=== PATIENT | female | born 1945 | race Caucasian/White ===

== ENCOUNTER 2018-01-20 11:02 | Outpatient (RCR) | payer MEDICARE, SELFPAY ==
--- NOTE | 2018-02-12 07:24 | HP.PTEVAL_ITS ---
Patient's Visit Information SAMARA GILMORE is a 72 year old F referred to Physical Therapy by Mk Velazco MD with a diagnosis of Parkinson's Disease. Date of Evaluation: 01/20/18 Physical Therapist: Gustavo Borrero - Visit Plan Frequency: 2x /Week Duration: 4 Weeks Plan: Start wth BLE strengthening, functional mobility, large amplituted movements, gait training. Add in Neurocom balance testing as well. - Subjective Subjective: Pt. is here today for her initial evaluation with diagnosis of Parkinson's disease. Pt. is a recent diagnosis and reports not stating any medications as of yet. Pt. reports havinga general weakness and frequent falls. Pt. denies pain currently. No N/T in either LE. Pt. reports living a fairly sedentary life style. Pt. does plan on moving into [facility] next month. Pt. unsure if this is assisted living or Group Home. Pt. is here today with her sister. Pt. reports increased difficulty walking in home, getting up out of chair and walking any distance due to fatigue and imbalance. Pt. is hopeful to increase BLE strength and balance to increase overall stability with all functional mobility. - Objective POSTURE: Pt. has rounded shoulders, FH, slouched posture in sitting and standing. Pt. is unable to fully correct, but is able to improve. Pt. stands with cane and wide DUY. PALPATION: Pt. has 1+ edema in BLEs. Pt. has no pain with palpation throughout BLEs. NEUROLOGICAL: Pt. has normal sensation throughout BLEs. Pt. 2+ bilateral achilles and patellar DTR. Pt. is able to rise on toes and heels, weakness noted, and requires balance aide to maintain stability. ROM: LUMBAR SPINE- generally stiff througout, min loss throughout. Pt. reports no pain with motions. Pt. has stiffness throughout thoracic spine as awell. greatest into ext. HIPS: R- flexion 118deg, abd 10deg, abd 45deg. Tight HS and hip flexors noted. L- flexion 108deg, abd 30deg, ext 10deg. Tight HS and hip flexors noted. MMT: RLE- ankle 5/5 throughout; knee- ext 4+/5 , flexion 4/5; hip- flexion 4/5, abd 4/5. ext 4/5. LLE- ankle 5/5 througout; knee- ext 4/5, flexion 4/5; hip- flexion 4/,5 abd 4/5, ext 4/5. Core strength- poor. GAIT: Pt. ambulates with SPC with HENRIQUE, but has increased posture sway and deviation from path. Pt. did not have presence of difficulty of initiaing movement and no freezing noted with gait. Pt. is able to rise of chair, but heavily uses UEs to assist. STAIRS: PT. is able to negotiate wiht step to pattern and heavy use of UEs. Fatigue rapidly. - Balance Scores Functional Gait Assessment Score: 6 % Disability: 80.0000 - Goals Goal 1:: Pt. to be I with HEP. Goal Time Frame: 4-6 Weeks Goal 2:: Pt. to have increased BLE strength by 1/2 grade of all effected musculature. Goal Time Frame: 4-6 Weeks Goal 3:: Pt. to have increased FGA to 12/30 indicating reduced risk for future falls. Goal Time Frame: 4-6 Weeks Goal 4:: Pt. to amnbulate 300+ ft. with SPC with improved safety HENRIQUE allowing for increased community ambulation. Goal Time Frame: 4-6 Weeks Goal 5:: Pt. to have Neurocom balance assessment. Goal Time Frame: 4-6 Weeks - Rehabilitation Potential Physical Therapy Diagnosis: Pt. has signs and symptoms consistent with generalized weakness, gait difficulty and imbalance with diagnosis of Parkinson' s disease. Pt. would benefit from PT to address above issues progressing larger movements, stability in stance, and safety with functional mobility. I would like patient to have a Neurocom balance assessment as well. Rehabilitation Potential: Fair - Anticipated Interventions Patient/Client Instruction: Educate patient on: Condition, Plan of Care, Risk Factors, Benefits of Fitness Program For the Purpose of:: To improve decision making, To facilitate caregiver knowledge, To improve self management, To prevent re-injury, To improve ability to perform tasks related to life management, To improve tolerance to ADL's Therapeutic Exercise to Include: Strength training, Power training, Endurance training, Balance training, Coordination, Agility training, Postural training, Flexibilty training, via Neurocom Balance Mas, Passive ROM, Active ROM For the Purpose of:: To decrease pain, To increase ROM, To improve nutrient delivery to tissue, To increase oxygenation perfusion, To improve muscle performance and motor function, To improve ability to perform ADL's, To improve gait and locomotor functions, To improve health of tissue, To decrease soft tissue restriction, To increase flexibility/ROM, To improve endurance, To improve balance, To improve safety with gait Thank you for the opportunity to evaluate your patient. For Medicare and Medicare HMO plans, please review the plan of care and approve it. It will need to be FAXED BACK to us at [phone] for Medicare purposes. Please let me know if there are questions or concerns regarding this plan of care. Physician Signature: Date:
--- NOTE | 2018-06-10 11:52 | HP.PT.NRP ---
HP - Discharge Summary (1) - Patient Information Julisa Conroy was seen in my office for initial evaluation on 01/20/18. The following Plan of Care was established for this patient: Initial Frequency: 2x /Week Initial Duration: 4 Weeks - Anticipated Interventions Patient/Client Instruction: Educate patient on: Condition, Plan of Care, Risk Factors, Benefits of Fitness Program For the Purpose of:: To improve decision making, To facilitate caregiver knowledge, To improve self management, To prevent re-injury, To improve ability to perform tasks related to life management, To improve tolerance to ADL's Therapeutic Exercise to Include: Strength training, Power training, Endurance training, Balance training, Coordination, Agility training, Postural training, Flexibilty training, via Neurocom Balance Mas, Passive ROM, Active ROM For the Purpose of:: To decrease pain, To increase ROM, To improve nutrient delivery to tissue, To increase oxygenation perfusion, To improve muscle performance and motor function, To improve ability to perform ADL's, To improve gait and locomotor functions, To improve health of tissue, To decrease soft tissue restriction, To increase flexibility/ROM, To improve endurance, To improve balance, To improve safety with gait This patient was last seen in our office 01/20/18. Pertinent comments regarding their Physical therapy will appear below: Pt. was seen for her initial evaluation with diagnosis of Parkinson's disease. Pt. was given some exercises to work on, but did not attend any future visits. Pt. has not been seen in ~4 months and will be DC from PT at this point in time. At this point I will be discontinuing this patient from physical therapy. I would be happy to see this patient again in the future if found appropriate by the physician. Thank you! Gustavo Borrero
== END 2018-01-20 19:00 | disposition home or self-care (01) ==
LOC: PT 11:02
PROVIDERS: Family Provider Family Medicine; PCP Family Medicine; Visit Provider Psychiatry & Neurology Neurology
DX: G20 Parkinson's disease (principal)
CPT/HCPCS: 97162

== ENCOUNTER → 2018-03-02 05:00 | Outpatient (REF) | payer MEDICARE, SELFPAY ==
[2018-03-02 08:08] LABS: Hematocrit 38.7 % (37-47); Mean Corp Hgb Conc 33.6 g/gl (32-36); Mean Corpuscular Hgb 29.8 pg (27.0-32.0); Mean Corpuscular Volume 88.8 fL (81-99); Mean Platelet Vol. 9.9 fl (6.2-12.0); Platelet Count 235 K/mm3 (150-450); RBC Distribution Width CV 12.6 % (11.6-14.6); RBC Distribution Width SD 40.3 fl (35.1-43.9); Red Blood Count 4.36 M/mm3 (4.2-5.4); White Blood Count 7.7 K/mm3 (4.4-11.0)
[2018-03-02 08:25] LABS: Scan Indicated on CBC? Y/N NO
[2018-03-02 08:45] LABS: Hemoglobin A1c 10.4 % (4.2-6.3)
[2018-03-02 08:47] LABS: Anion Gap 8 (5-15); BUN 20 mg/dL (7-18); BUN/Creat Ratio 35.1 RATIO (10-20); Calcium,Total 9.6 mg/dL (8.5-10.1); Chloride 100 mmol/L (98-107); Cholesterol 154 mg/dL (200); Creatinine, Serum 0.57 mg/dL (0.55-1.02); EST Glomerular Filtration Rate 110 mL/min (>60); Est Glom Filt Rate - Afr Amer 134 mL/min (>60); Glucose 233 mg/dL (74-106); High Density Lipoprotein 34 mg/dL; Potassium 3.3 mmol/L (3.5-5.1); Sodium Level 138 mmol/L (136-145); Thyroid Stim Hormone (TSH) 0.26 uIU/mL (0.358-3.74); Triglycerides 143 mg/dL; Very Low Density Lipoprotein 29 mg/dL (5-40)
== END ==
LOC: OLS.WCC 05:00
PROVIDERS: Visit Provider Family Medicine
DX: E11.9 Type 2 diabetes mellitus without complications (principal); R53.83 Other fatigue; I10 Essential (primary) hypertension; E78.5 Hyperlipidemia, unspecified; E03.9 Hypothyroidism, unspecified; Z79.899 Other long term (current) drug therapy
CPT/HCPCS: 36415; 80048; 80061; 83036; 84443; 85027

== ENCOUNTER → 2018-09-27 04:00 | Outpatient (REF) | payer MEDICARE, SELFPAY ==
[2018-09-27 09:04] LABS: Hematocrit 40.4 % (37-47); Hemoglobin 13.5 g/dl (12.0-15.0); Mean Corp Hgb Conc 33.4 g/gl (32-36); Mean Corpuscular Hgb 30.1 pg (27.0-32.0); Mean Platelet Vol. 9.8 fl (6.2-12.0); Platelet Count 236 K/mm3 (150-450); RBC Distribution Width SD 41.9 fl (35.1-43.9); Red Blood Count 4.49 M/mm3 (4.2-5.4); White Blood Count 7.3 K/mm3 (4.4-11.0)
[2018-09-27 09:08] LABS: Scan Indicated on CBC? Y/N NO
[2018-09-27 09:29] LABS: Anion Gap 8 (5-15); BUN 16 mg/dL (7-18); BUN/Creat Ratio 27.7 RATIO (10-20); Calcium,Total 8.5 mg/dL (8.5-10.1); Chloride 103 mmol/L (98-107); Cholesterol 147 mg/dL (200); Creatinine, Serum 0.58 mg/dL (0.55-1.02); EST Glomerular Filtration Rate 109 mL/min (>60); Est Glom Filt Rate - Afr Amer 132 mL/min (>60); Glucose 205 mg/dL (74-106); High Density Lipoprotein 33 mg/dL; Potassium 3.4 mmol/L (3.5-5.1); Sodium Level 140 mmol/L (136-145); Thyroid Stim Hormone (TSH) 0.74 uIU/mL (0.358-3.74); Triglycerides 201 mg/dL; Very Low Density Lipoprotein 40 mg/dL (5-40)
[2018-09-27 09:46] LABS: Hemoglobin A1c 9.6 % (4.2-6.3)
== END ==
LOC: OLS.WCC 04:00
PROVIDERS: Visit Provider Family Medicine
DX: I10 Essential (primary) hypertension (principal); E78.5 Hyperlipidemia, unspecified; E03.9 Hypothyroidism, unspecified; Z79.899 Other long term (current) drug therapy; E11.9 Type 2 diabetes mellitus without complications
CPT/HCPCS: 36415; 80048; 80061; 83036; 84443; 85027

== ENCOUNTER → 2018-11-16 15:33 | Outpatient (CLI) | payer MEDICARE, SELFPAY ==
[2018-11-16 17:32] LABS: Absolute Lymphocyte Count 1.98 X10^3/ul (0.83-4.51); Absolute Neutrophil Count 5.1 X10^3/uL (2.0-7.7); Basophil# 0.05 X10^3/uL; Basophil% 0.6 % (0-1); Eosinophil# 0.18 X10^3/uL; Eosinophils% 2.3 % (0-5); Hematocrit 43.5 % (37-47); Lymphocyte # 1.98 X10^3/ul (4.0); Lymphocyte % 24.9 % (19-41); Mean Corp Hgb Conc 32.2 g/gl (32-36); Mean Corpuscular Hgb 29.2 pg (27.0-32.0); Mean Corpuscular Volume 90.8 fL (81-99); Mean Platelet Vol. 10.2 fl (6.2-12.0); Monocyte# 0.65 X10^3/uL; Monocyte% 8.2 % (0-10); Neutrophil # 5.05 X10^3/uL (2.7-7.7); Neutrophil % 63.6 % (47-70); Platelet Count 224 K/mm3 (150-450); RBC Distribution Width CV 12.5 % (11.6-14.6); RBC Distribution Width SD 40.9 fl (35.1-43.9); Red Blood Count 4.79 M/mm3 (4.2-5.4); White Blood Count 7.9 K/mm3 (4.4-11.0)
[2018-11-16 17:57] LABS: POSITIVE COUNT NO; POSITIVE DIFFERENTIAL NO; POSITIVE MORPHOLOGY NO
[2018-11-16 18:17] LABS: ALB/GLOB Ratio 0.9 RATIO (0.9-2.4); AST(SGOT) 22 U/L (15-37); Alanine Aminotransfer ALT/SGPT 13 U/L (13-56); Albumin, Serum 3.3 g/dL (3.2-5.0); Alkaline Phosphatase 88 U/L (45-117); Anion Gap 8 (5-15); BUN 23 mg/dL (7-18); BUN/Creat Ratio 27.1 RATIO (10-20); Calcium,Total 9.4 mg/dL (8.5-10.1); Chloride 104 mmol/L (98-107); Cholesterol 150 mg/dL (200); Creatinine, Serum 0.85 mg/dL (0.55-1.02); EST Glomerular Filtration Rate 70 mL/min (>60); Est Glom Filt Rate - Afr Amer 84 mL/min (>60); Globulin 3.8 g/dL (2.2-4.2); Glucose 219 mg/dL (74-106); High Density Lipoprotein 39 mg/dL; Potassium 4.1 mmol/L (3.5-5.1); Protein, Total 7.1 g/dL (6.4-8.2); Sodium Level 139 mmol/L (136-145); Thyroid Stim Hormone (TSH) 0.75 uIU/mL (0.358-3.74); Triglycerides 111 mg/dL; Very Low Density Lipoprotein 22 mg/dL (5-40)
[2018-11-18 13:12] LABS: Hep C Antibodies <0.1 s/co ratio (0.0-0.9)
== END ==
PROVIDERS: Visit Provider Family Medicine Geriatric Medicine
DX: Z00.00 Encounter for general adult medical examination without abnormal findings (principal); N39.0 Urinary tract infection, site not specified; E78.5 Hyperlipidemia, unspecified; E55.9 Vitamin D deficiency, unspecified; Z13.89 Encounter for screening for other disorder
CPT/HCPCS: 36415; 80053; 80061; 82306; 84443; 85025; 86803; 87086; 87088

== ENCOUNTER → 2018-11-25 13:14 | Outpatient (CLI) | payer MEDICARE, SELFPAY ==
--- NOTE | 2018-11-25 13:21 | BD_ITS ---
STUDY: DUAL ENERGY X-RAY ABSORPTIOMETRY / DXA REASON FOR EXAM: Female, 72 years old. The patient is postmenopausal. Loss of height. TECHNIQUE: Bone Mineral Density (BMD) measurements of lumbar spine and bilateral hips were obtained. COMPARISON: None. FINDINGS: Lumbar Spine (L1-L4): g/cm2 (1.288) / T-score (0.9) / Z-score (2.6) Findings are suggestive of normal bone density with a low fracture risk. Left Femur Total: g/cm2 (0.992) / T-score (-0.1) / Z-score (1.5) Left Femoral Neck: g/cm2 (0.810) / T-score (-1.6) / Z-score (0.2) Right Femur Total: g/cm2 (0.946) / T-score (-0.5) / Z-score (1.2) Right Femoral Neck: g/cm2 (0.797) / T-score (-1.7) / Z-score (0.1) BD/Dexa Bone Density Study IMPRESSION: The patient is considered osteopenic as outlined below according to World Jerome Organization (WHO) criteria with a moderate fracture risk. Reference Information: The T-score is the number of standard deviations above or below the standard which is normal for young adults at their peak bone mineral density. The World Health Organization (WHO) interprets the T-scores as follows: Above -1 Normal bone density Between -1 and -2.5 Osteopenia Equal to / or below -2.5 Osteoporosis As a practical clinical guideline, osteopenia may be graded as follows: Mild -1 through -1.5 Moderate -1.6 through -2.0 Severe -2.1 through -2.4 The Z-score is the number of standard deviations above or below age-matched controls. A Z-score of less than -1.5 would be considered abnormal. References: 1. NIH Osteoporosis and Related Bone Diseases http://www.osteo.org 2. International Society for Clinical Densitometry http://www.iscd.org 3. National Osteoporosis Foundation http://www.nof.org Electronically Signed: Daniel Michel, at 13:08 EDT , Service support ,
== END ==
PROVIDERS: PCP Family Medicine Geriatric Medicine; Referring Provider Family Medicine Geriatric Medicine; Visit Provider Family Medicine Geriatric Medicine
DX: Z78.0 Asymptomatic menopausal state (principal); M85.80 Other specified disorders of bone density and structure, unspecified site
CPT/HCPCS: 77080

== ENCOUNTER → 2019-02-16 11:16 | Outpatient (CLI) | payer OTHER, SELFPAY ==
[2019-02-16 12:54] LABS: Absolute Lymphocyte Count 1.64 X10^3/ul (0.83-4.51); Absolute Neutrophil Count 6.2 X10^3/uL (2.0-7.7); Basophil# 0.04 X10^3/uL; Basophil% 0.4 % (0-1); Eosinophil# 0.24 X10^3/uL; Eosinophils% 2.7 % (0-5); Lymphocyte # 1.64 X10^3/ul (4.0); Lymphocyte % 18.4 % (19-41); Mean Corp Hgb Conc 32.5 g/gl (32-36); Mean Corpuscular Hgb 29.1 pg (27.0-32.0); Mean Corpuscular Volume 89.5 fL (81-99); Mean Platelet Vol. 9.5 fl (6.2-12.0); Monocyte# 0.76 X10^3/uL; Monocyte% 8.5 % (0-10); Neutrophil % 69.7 % (47-70); Platelet Count 247 K/mm3 (150-450); RBC Distribution Width CV 13.1 % (11.6-14.6); RBC Distribution Width SD 42.6 fl (35.1-43.9); Red Blood Count 4.47 M/mm3 (4.2-5.4); White Blood Count 8.9 K/mm3 (4.4-11.0)
[2019-02-16 12:55] LABS: POSITIVE COUNT NO; POSITIVE DIFFERENTIAL NO; POSITIVE MORPHOLOGY NO
[2019-02-16 13:05] LABS: Vitamin D,25 Hydroxy 30.4 ng/mL (29.95-100.01)
[2019-02-16 13:11] LABS: ALB/GLOB Ratio 0.9 RATIO (0.9-2.4); AST(SGOT) 10 U/L (15-37); Alanine Aminotransfer ALT/SGPT 21 U/L (13-56); Albumin, Serum 3.4 g/dL (3.2-5.0); Alkaline Phosphatase 87 U/L (45-117); Anion Gap 8 (5-15); BUN 21 mg/dL (7-18); BUN/Creat Ratio 28.2 RATIO (10-20); Calcium,Total 9.5 mg/dL (8.5-10.1); Chloride 104 mmol/L (98-107); Cholesterol 113 mg/dL (200); Creatinine, Serum 0.74 mg/dL (0.55-1.02); EST Glomerular Filtration Rate 81 mL/min (>60); Est Glom Filt Rate - Afr Amer 98 mL/min (>60); Globulin 3.7 g/dL (2.2-4.2); Glucose 118 mg/dL (74-106); High Density Lipoprotein 44 mg/dL; Protein, Total 7.1 g/dL (6.4-8.2); Sodium Level 139 mmol/L (136-145); Triglycerides 107 mg/dL; Very Low Density Lipoprotein 21 mg/dL (5-40)
== END ==
PROVIDERS: PCP Family Medicine Geriatric Medicine; Visit Provider Family Medicine Geriatric Medicine
DX: E11.65 Type 2 diabetes mellitus with hyperglycemia (principal); I10 Essential (primary) hypertension; E78.5 Hyperlipidemia, unspecified; E55.9 Vitamin D deficiency, unspecified
CPT/HCPCS: 36415; 80053; 80061; 82306; 84443; 85025

== ENCOUNTER → 2019-03-07 14:35 | Outpatient (CLI) | payer OTHER, SELFPAY ==
--- NOTE | 2019-03-07 | IMM_PTH ---
PATIENT: SAMARA GILMORE LOC: [facility] U#:[id number] AGE/SX: 79/F ROOM: RE03/07/[address]: Dr. Darren Kaur MD : 1945 BED: DIS: SPEC #: [id number] RECD: 03/08/19 16:19 STATUS: NICOLÁS REIngrid #: [id number] GONZALEZ: 03/07/19 00:[address]: Darren Kaur DEPT: IMMUNOHISTOCHEMISTRY RECD BY: Sylvia Smith ENTERED: 03/08/19 16:20 SP TYPE: IMMUNO OTHR DR: Dr. Evens Munoz MD Tissues: Skin of face, NOS Procedures: CK5-6 (initial) MART1 (add) P40 (add) S-100 (add) PHYSICIAN & INSTITUTION [place] [address] SPECIMEN INFORMATION: Tissue Source: Lesion right upper cheek Clinical Info: Lesion right upper cheek, melanoma history Specimen Number: [id number] CPT code: 77685, 94667 x3 METHODOLOGY: Deparaffinized sections of prefer/formalin-fixed tissue or PAP/DQ stained slides are incubated with monoclonal/polyclonal antibodies/oligonucleotide probes. Localization is made via biotin free immunoperoxidase method. Appropriate controls are performed and reacted as expected. Results on target cell population are indicated in the following table: RESULTS: ANTIBODY / CLONE RESULT S-100 (4C4.9) negative MART-1 (A-103) negative CK5-6 (D5 & 1684) positive P40 (BC28) positive These tests were developed and their performance characteristics determined by [facility]. They may not have been cleared or approved by the U.S. Food and Drug Administration. The FDA has determined that such clearance or approval is not necessary. INTERPRETATION: Lesion right upper cheek, biopsy: Basal cell carcinoma. AMOS:karlene 03/09/19
--- NOTE | 2019-03-07 11:55 | LES_PTH ---
PATIENT: SAMARA GILMORE LOC: [facility] U#:[id number] AGE/SX: 79/F ROOM: RE03/07/[address]: Dr. Darren Kaur MD : 1945 BED: DIS: SPEC #: [id number] RECD: 03/07/19 13:34 STATUS: NICOLÁS KATHY #: [id number] GONZALEZ: 03/07/19 11:[address]: Darren Kaur DEPT: SURGICAL PATHOLOGY RECD BY: Carli Pavon ENTERED: 03/07/19 15:02 SP TYPE: Lesion OTHR DR: Dr. Evens Muonz MD Tissues: Skin of face, NOS Procedures: Surgery Specimen Level IV HEADER OPERATION: Lesion right upper cheek PRE-OP DIAGNOSIS: History of melanoma at site 20 years ago, raised lesion TISSUE SUBMITTED: Lesion right upper cheek MICROSCOPIC DIAGNOSIS Lesion right upper cheek, punch biopsy: Basal cell carcinoma (0.3 cm in greatest dimension), present at the peripheral resection margin of the specimen. See comment. AMOS:karlene 03/08/19 COMMENT Immunohistochemistry ([id number]) supports the above diagnosis. Case has been reviewed in consultation with Dr. Camara who concurs with the above diagnosis. IDC:AM MICROSCOPIC DESCRIPTION Slides are reviewed. GROSS DESCRIPTION Received is one container labeled with the patient's name and not further designated. The specimen consists of a punch biopsy of samayoa-white skin measuring 0.4 cm in diameter and 0.3 cm in length. The specimen is totally submitted in one cassette. / AMOS:karlene 03/07/19 TC:0 CPT: 84202
== END ==
PROVIDERS: Family Provider Family Medicine Geriatric Medicine; PCP Family Medicine Geriatric Medicine; Referring Provider Otolaryngology; Visit Provider Otolaryngology
DX: L98.9 Disorder of the skin and subcutaneous tissue, unspecified (principal); Z85.820 Personal history of malignant melanoma of skin
CPT/HCPCS: 88305; 88341; 88342

== ENCOUNTER 2019-04-01 06:08 | Day surgery (SDC) | payer OTHER, SELFPAY ==
[2019-04-01] VITALS (9 sets, daily range): BP systolic 97–169; BP diastolic 54–68; PULSE 58–77; RESP 16–18; TEMP 35.9–36.3; O2SAT 92–96; BMI 41.1
--- NOTE | 2019-04-01 | LES_PTH ---
PATIENT: SAMARA GILMORE [place] [id number] AGE/SX: 73/F ROOM: RE04/01/[address]: Dr. Darren Kaur MD : 1945 BED: DIS: 04/01/2019 SPEC #: [id number] RECD: 04/01/19 08:40 STATUS: NICOLÁS REQ #: [id number] GONZALEZ: 04/01/19 00:[address]: Darren Kaur DEPT: SURGICAL PATHOLOGY RECD BY: Sylvia Smith ENTERED: 04/01/19 09:30 SP TYPE: Lesion OTHR DR: Dr. Evens Munoz MD Tissues: A - Skin of face, NOS B - Skin of face, NOS Procedures: Frozen Section (charge) Frozen Section Add[facility]l ([facility]) Surgery Specimen Level IV HEADER OPERATION: Excision malignant lesion including margins, face, frozen section PRE-OP DIAGNOSIS: Basal cell carcinoma of right face TISSUE SUBMITTED: A - Basal cell carcinoma right cheek, single suture - superior, double suture - medial sent for frozen section, B - Medial margin right cheek, stain at superior sent for frozen section FROZEN SECTION DIAGNOSIS A. Basal cell carcinoma right cheek, excisional biopsy: Basal cell carcinoma. The tumor is close to the medial margin. Other margins are free of tumor. B. Medial margin right cheek, biopsy: Negative for carcinoma. AMOS:karlene 04/01/19 MICROSCOPIC DIAGNOSIS A. Basal cell carcinoma right cheek, excisional biopsy: Basal cell carcinoma (1.1 cm in greatest width). The tumor is close to the medial margin of the specimen. Other margins are free of tumor. Solar elastosis. Focal fibrosis consistent with previous biopsy site. B. Medial margin right cheek, biopsy: Negative for carcinoma. AMOS:karlene 04/04/19 COMMENT Please make reference to previous specimen ([id number]) lesion right cheek, punch biopsy with diagnosis of basal cell carcinoma. MICROSCOPIC DESCRIPTION Slides are reviewed. GROSS DESCRIPTION A - Received fresh for frozen section diagnosis labeled with the patient's name is a specimen designated basal cell carcinoma, right cheek. The specimen consists of an ovoid to arvind-shaped piece of samayoa-white skin measuring 2.5 x 2 x 0.1 cm. The specimen is oriented as follows: single suture - superior, double suture - medial. The specimen is inked as follows: superior - black, inferior - blue, medial - green, lateral - yellow. The entire specimen is submitted for frozen section diagnosis in three cassettes as follows: 1 - medial and lateral margin enface, 2 & 3 - rest of the specimen. / AMOS:karlene 04/01/19 B - Received fresh for frozen section diagnosis labeled with the patient's name is a specimen designated medial margin, right cheek. The specimen consists of a strip of samayoa-white skin measuring 2 x 0.2 x 0.1 cm. The entire specimen is submitted for frozen section diagnosis in one cassette. / AMOS:karlene 04/01/19 TC:0 CPT: 44650 x2, 10133 x2, 99872 x2
[2019-04-01 06:46] LABS: Bedside Glucose 124 mg/dL (70-110)
[2019-04-01] MEDS: Erythromycin Base 1 OPTH.TUBE 1 APPLIC (10:19)
--- NOTE | 2019-04-01 10:21 | PCM.OPRPT ---
Problem List (1) Basal cell carcinoma of right cheek Status: Chronic Report of Operation Date of Procedure: 04/01/19 Pre-Operative Diagnosis: Basal cell carcinoma right cheek Surgery/Procedure Performed:: Excison of BCCA of right cheek 2x3 cm with advancement rotation flap reconstruction less than 10 cm2 Description of Surgical Findings:: Julisa is a 73-year-old female with a bleeding lesion over the right cheek. This was biopsied in the office which revealed basal cell carcinoma. She had a previous excision at this site and examination showed a broad spreading lesion approximately 2 x 2 cm in size suspicious for tumor involvement. She was counseled regarding wide resection with local flap reconstruction and was agreeable to proceed. The risks, alternatives, potential complications, and benefits were discussed at length and any questions answered to the patient and/or caregiver's satisfaction. Witnessed informed consent was obtained in the office, and the patient and/or caregiver was agreeable to proceed. Procedure went as follows: The patient was identified in the preoperative holding and the right cheek site marked as the operative site. She was then brought to the operating room and placed under general anesthesia and intubated. When appropriate and she is obtained, the face was then prepped and draped in standard sterile fashion. The planned incision sites were then marked with a marking pen and injected with 1% lidocaine with 100,000 epinephrine for a total of 5 cc. After allowing for vasoconstriction, the lesion was then sharply excised with a 15 blade scalpel through the skin down to the subcutaneous tissues and an area 2 x 3 cm in size. This was then sharply dissected free from the buccal fat pad with an iris scissor and sent as pathologic specimen. The margins were marked and frozen section revealed the medial margin to remain closely involved with tumor and an additional 2 mm wide segment by 2 cm in length was sent for additional evaluation. The second margin was clear of involvement. Attention was then turned to reconstruction of the defect. A large rotational flap was then designed pedicled inferiorly. This was additionally injected with 1% lidocaine with 100,000 epinephrine for a total of 3 cc. Using a 15 blade scalpel the descending limbs of the flap were then incised using an iris scissor this was then widely undermined to allow it to be rotated superiorly into the cheek defect. Hemostasis was achieved with bipolar cautery. The flap was then rotated superiorly into the defect and secured deeply with interrupted 3-0 Vicryl sutures. The skin edge was then closed with interrupted 5-0 Monocryl sutures. Erythromycin ophthalmic ointment was then applied to the wound edge. The patient was then returned to anesthesia where she was revived and extubated without complication having tolerated the procedure well. Type of Anesthesia:: General Anesthesiologist: Darren Gibbs Special Medications: none Specimen's removed: BCCA right cheek Drains: none Estimated Blood Loss (mL): 10 mL Fluids Replaced: 1200 mL Grafts/Implants Used: none - Complications none - Admit VTE Documentation VTE Present on Admission: No VTE Mechan Device Prophylaxis: SCD's VTE Pharm Prophylaxis ordered?: No
--- NOTE | 2019-04-01 10:30 | DCINST_ITS ---
- Discharge Diagnoses Current Active Problems: Current Active and Chronic Problems Basal cell carcinoma of right cheek (Chronic) You will use the following diet at home:: Regular Discharge Activity: Return to Normal Activity Call your doctor if your incision/area has: Continuous Slow Oozing, Increased Redness, Foul Smelling Discharge Call your doctor if you observe: Fever of 101 or Higher, Uncontrolled pain Allergies/Adverse Reactions: Allergies Penicillins Allergy (Verified 03/25/19 10:06) Rash hydrocodone Adverse Reaction (Verified 03/25/19 10:06) hallucinations Medications to take at Discharge Amlodipine [Norvasc] 5 mg PO DAILY 03/28/19 Aspirin [Aspir 81] 81 mg PO DAILY 03/28/19 Atorvastatin Calcium [Lipitor] 40 mg PO QHS 03/28/19 Buspirone HCl 10 mg PO BID 03/28/19 Calcium Carbonate [Calcium] 600 mg PO BID 03/28/19 Carbidopa/Levodopa 25/100 [Sinemet] 1 tab PO TIDAC 03/28/19 Cholecalciferol (VIT D3) [Vitamin D] 1,000 unit PO DAILY 03/28/19 Insulin Glargine,Hum.rec.anlog [Lantus] 40 unit SQ QHS 03/28/19 Levothyroxine [Synthroid] 125 mcg PO DAILY 03/28/19 Loratadine [Claritin] 10 mg PO DAILY 03/28/19 Losartan/Hydrochlorothiazide [Losartan-Hctz 100-25 mg Tab] 1 ea PO DAILY 03/28/19 Metformin HCl 1,000 mg PO BID 03/28/19 Pioglitazone [Actos] 30 mg PO DAILY 03/28/19 Potassium Chloride 10 meq PO TID 03/28/19 Venlafaxine HCl [Effexor Xr] 150 mg PO DAILY 03/28/19 Primary Care Physician: Evens Munoz Chi, MD [Primary Care Provider] - Test Results: Test results from this visit will be discussed in further detail at your follow- up appointment, if applicable. Please Follow Up With: Darren Kaur MD When: 2 weeks
[2019-04-01 10:45] LABS: Bedside Glucose 176 mg/dL (70-110)
== END 2019-04-01 12:57 | disposition home or self-care (01) ==
LOC: SDC 06:08 → AC 06:10
PROVIDERS: Family Provider Family Medicine Geriatric Medicine; PCP Family Medicine Geriatric Medicine; Referring Provider Otolaryngology; Visit Provider Otolaryngology
PROC: (CPT 14040; principal; 2019-04-01 07:55)
DX: C44.319 Basal cell carcinoma of skin of other parts of face (principal); E11.9 Type 2 diabetes mellitus without complications; I10 Essential (primary) hypertension; E78.5 Hyperlipidemia, unspecified; M19.90 Unspecified osteoarthritis, unspecified site; F32.9 Major depressive disorder, single episode, unspecified; Z78.0 Asymptomatic menopausal state; Z79.82 Long term (current) use of aspirin; Z79.4 Long term (current) use of insulin; Z79.899 Other long term (current) drug therapy
CPT/HCPCS: 14040; 82962; 88305; 88331; 88332; J7120; J2405

== ENCOUNTER → 2019-05-18 10:32 | Outpatient (CLI) | payer OTHER, MEDICARE, MEDICAID, SELFPAY ==
[2019-04-01 06:29] VITALS: BMI 41.1
[2019-05-18 12:45] LABS: Absolute Lymphocyte Count 1.78 X10^3/uL (0.83-4.51); Absolute Neutrophil Count 5.6 X10^3/uL (2.0-7.7); Basophil# 0.06 X10^3/uL; Basophil% 0.7 % (0-1); Eosinophil# 0.25 X10^3/uL; Eosinophils% 2.9 % (0-5); Hemoglobin 12.5 g/dL (12.0-15.0); Lymphocyte # 1.78 X10^3/ul (4.0); Lymphocyte % 20.9 % (19-41); Mean Corp Hgb Conc 32.1 g/dL (32-36); Mean Corpuscular Hgb 28.7 pg (27.0-32.0); Mean Corpuscular Volume 89.7 fL (81-99); Monocyte# 0.83 X10^3/uL; Monocyte% 9.7 % (0-10); NRBC Flagged by Analyzer 0 % (0-5); Neutrophil # 5.57 X10^3/uL (2.7-7.7); Neutrophil % 65.3 % (47-70); Platelet Count 251 K/mm3 (150-450); RBC Distribution Width CV 12.5 % (11.6-14.6); RBC Distribution Width SD 41.2 fl (35.1-43.9); Red Blood Count 4.35 M/mm3 (4.2-5.4); White Blood Count 8.5 K/mm3 (4.4-11.0)
[2019-05-18 13:02] LABS: Vitamin D,25 Hydroxy 28.3 ng/mL (29.95-100.01)
[2019-05-18 13:24] LABS: ALB/GLOB Ratio 0.9 RATIO (0.9-2.4); AST(SGOT) 15 U/L (15-37); Alanine Aminotransfer ALT/SGPT 24 U/L (13-56); Albumin, Serum 3.3 g/dL (3.2-5.0); Alkaline Phosphatase 88 U/L (45-117); Anion Gap 9 (5-15); BUN 27 mg/dL (7-18); BUN/Creat Ratio 35.9 RATIO (10-20); Calcium,Total 9.5 mg/dL (8.5-10.1); Chloride 101 mmol/L (98-107); Creatinine, Serum 0.75 mg/dL (0.55-1.02); EST Glomerular Filtration Rate 80 mL/min (>60); Est Glom Filt Rate - Afr Amer 97 mL/min (>60); Globulin 3.7 g/dL (2.2-4.2); Glucose 129 mg/dL (74-106); Potassium 3.8 mmol/L (3.5-5.1); Sodium Level 139 mmol/L (136-145); Thyroid Stim Hormone (TSH) 0.73 uIU/mL (0.358-3.74)
== END ==
PROVIDERS: Family Provider Family Medicine Geriatric Medicine; PCP Family Medicine Geriatric Medicine; Visit Provider Family Medicine Geriatric Medicine
DX: I10 Essential (primary) hypertension (principal); E78.5 Hyperlipidemia, unspecified; E55.9 Vitamin D deficiency, unspecified
CPT/HCPCS: 36415; 80053; 82306; 84443; 85025

== ENCOUNTER → 2019-08-16 11:31 | Outpatient (CLI) | payer OTHER, MEDICARE, MEDICAID, SELFPAY ==
[2019-04-01 06:29] VITALS: BMI 41.1
[2019-08-16 12:31] LABS: Absolute Lymphocyte Count 1.44 X10^3/uL (0.83-4.51); Absolute Neutrophil Count 5.3 X10^3/uL (2.0-7.7); Basophil# 0.05 X10^3/uL; Basophil% 0.6 % (0-1); Eosinophil# 0.31 X10^3/uL; Eosinophils% 3.9 % (0-5); Hematocrit 39.2 % (37-47); Hemoglobin 12.7 g/dL (12.0-15.0); Lymphocyte # 1.44 X10^3/ul (4.0); Lymphocyte % 18.3 % (19-41); Mean Corp Hgb Conc 32.4 g/dL (32-36); Mean Corpuscular Hgb 28.6 pg (27.0-32.0); Mean Corpuscular Volume 88.3 fL (81-99); Mean Platelet Vol. 10.2 fl (6.2-12.0); Monocyte# 0.72 X10^3/uL; Monocyte% 9.1 % (0-10); NRBC Flagged by Analyzer 0 % (0-5); Neutrophil # 5.31 X10^3/uL (2.7-7.7); Neutrophil % 67.6 % (47-70); Platelet Count 277 K/mm3 (150-450); RBC Distribution Width SD 42.1 fl (35.1-43.9); Red Blood Count 4.44 M/mm3 (4.2-5.4); White Blood Count 7.9 K/mm3 (4.4-11.0)
[2019-08-16 12:45] LABS: Vitamin D,25 Hydroxy 27.7 ng/mL (29.95-100.01)
[2019-08-16 13:22] LABS: ALB/GLOB Ratio 0.9 RATIO (0.9-2.4); AST(SGOT) 15 U/L (15-37); Alanine Aminotransfer ALT/SGPT 18 U/L (13-56); Albumin, Serum 3.4 g/dL (3.2-5.0); Alkaline Phosphatase 84 U/L (45-117); Anion Gap 7 (5-15); BUN 21 mg/dL (7-18); BUN/Creat Ratio 24.1 RATIO (10-20); Calcium,Total 9.6 mg/dL (8.5-10.1); Chloride 103 mmol/L (98-107); Creatinine, Serum 0.87 mg/dL (0.55-1.02); EST Glomerular Filtration Rate 67 mL/min (>60); Est Glom Filt Rate - Afr Amer 81 mL/min (>60); Globulin 3.6 g/dL (2.2-4.2); Glucose 198 mg/dL (74-106); Magnesium 1.8 mg/dL (1.6-2.6); Potassium 3.9 mmol/L (3.5-5.1); Sodium Level 138 mmol/L (136-145); Thyroid Stim Hormone (TSH) 1.81 uIU/mL (0.358-3.74)
== END ==
PROVIDERS: Family Provider Family Medicine Geriatric Medicine; PCP Family Medicine Geriatric Medicine; Visit Provider Family Medicine Geriatric Medicine
DX: E11.65 Type 2 diabetes mellitus with hyperglycemia (principal); E55.9 Vitamin D deficiency, unspecified; I10 Essential (primary) hypertension
CPT/HCPCS: 36415; 80053; 82306; 83735; 84443; 85025

== ENCOUNTER → 2019-10-03 12:10 | Outpatient (CLI) | payer MEDICARE, MEDICAID, SELFPAY ==
[2019-04-01 06:29] VITALS: BMI 41.1
== END ==
PROVIDERS: PCP Family Medicine Geriatric Medicine; Referring Provider Family Medicine Geriatric Medicine; Visit Provider Family Medicine Geriatric Medicine
DX: R68.83 Chills (without fever) (principal)
CPT/HCPCS: 87633

== ENCOUNTER → 2019-11-02 17:01 | Outpatient (CLI) | payer MEDICARE, MEDICAID, SELFPAY ==
[2019-04-01 06:29] VITALS: BMI 41.1
--- NOTE | 2019-11-02 17:25 | RAD_ITS ---
STUDY: X-RAY - ABDOMEN/PELVIS REASON FOR EXAM: Female, 73 years old. EXCESSIVE GAS X 6 MONTHS WITH PAIN TECHNIQUE: AP supine and decubitus views of the abdomen and pelvis. COMPARISON: None. FINDINGS: Normal visualized lung bases. There is a moderate amount of colonic fecal material. No dilated loops of bowel or evidence for obstruction. No air-fluid levels. There is no demonstrated free abdominal air. The visualized liver, spleen and kidneys are grossly normal in size and morphology. Normal soft tissue structures. Normal visualized osseous structures. RAD/Abd Inc Decub and/or Erect IMPRESSION: Fecal retention. No evidence for obstruction. Electronically Signed: Jonathan Gomes MD at 15:35 EST , Service support ,
== END ==
PROVIDERS: PCP Family Medicine Geriatric Medicine; Referring Provider Family Medicine Geriatric Medicine; Visit Provider Family Medicine Geriatric Medicine
DX: N39.0 Urinary tract infection, site not specified (principal); R10.9 Unspecified abdominal pain
CPT/HCPCS: 74019; 87086; 87088

== ENCOUNTER → 2019-11-21 11:18 | Outpatient (CLI) | payer MEDICARE, MEDICAID, SELFPAY ==
[2019-04-01 06:29] VITALS: BMI 41.1
[2019-11-21 14:50] LABS: Absolute Neutrophil Count 7.2 X10^3/uL (2.0-7.7); Basophil# 0.08 X10^3/uL; Basophil% 0.8 % (0-1); Eosinophil# 0.41 X10^3/uL; Eosinophils% 3.9 % (0-5); Hematocrit 40.8 % (37-47); Hemoglobin 13.2 g/dL (12.0-15.0); Lymphocyte % 17.1 % (19-41); Mean Corp Hgb Conc 32.4 g/dL (32-36); Mean Corpuscular Volume 89.7 fL (81-99); Mean Platelet Vol. 10.6 fl (6.2-12.0); Monocyte# 0.95 X10^3/uL; NRBC Flagged by Analyzer 0 % (0-5); Neutrophil # 7.19 X10^3/uL (2.7-7.7); Neutrophil % 68.2 % (47-70); Platelet Count 273 K/mm3 (150-450); RBC Distribution Width SD 42.5 fl (35.1-43.9); Red Blood Count 4.55 M/mm3 (4.2-5.4); White Blood Count 10.5 K/mm3 (4.4-11.0)
[2019-11-21 15:02] LABS: Vitamin D,25 Hydroxy 38.7 ng/mL
[2019-11-21 15:15] LABS: ALB/GLOB Ratio 0.9 RATIO (0.9-2.4); AST(SGOT) 10 U/L (15-37); Alanine Aminotransfer ALT/SGPT 17 U/L (13-56); Albumin, Serum 3.5 g/dL (3.2-5.0); Alkaline Phosphatase 87 U/L (45-117); Anion Gap 6 (5-15); BUN 23 mg/dL (7-18); BUN/Creat Ratio 28.4 RATIO (10-20); Calcium,Total 9.9 mg/dL (8.5-10.1); Chloride 103 mmol/L (98-107); Creatinine, Serum 0.81 mg/dL (0.55-1.02); EST Glomerular Filtration Rate 73 mL/min (>60); Est Glom Filt Rate - Afr Amer 89 mL/min (>60); Globulin 3.8 g/dL (2.2-4.2); Glucose 199 mg/dL (74-106); Protein, Total 7.3 g/dL (6.4-8.2); Sodium Level 137 mmol/L (136-145); Thyroid Stim Hormone (TSH) 0.88 uIU/mL (0.358-3.74)
== END ==
PROVIDERS: PCP Family Medicine Geriatric Medicine; Visit Provider Family Medicine Geriatric Medicine
DX: E11.69 Type 2 diabetes mellitus with other specified complication (principal); E55.9 Vitamin D deficiency, unspecified; I10 Essential (primary) hypertension; N39.0 Urinary tract infection, site not specified
CPT/HCPCS: 36415; 80053; 82306; 84443; 85025; 87086

== ENCOUNTER → 2020-01-16 12:23 | Outpatient (CLI) | payer MEDICARE, MEDICAID, SELFPAY ==
[2019-12-15 12:08] VITALS: BMI 41.1
[2020-01-16 12:55] LABS: Absolute Neutrophil Count 7.3 X10^3/uL (2.0-7.7); Basophil# 0.05 X10^3/uL; Basophil% 0.5 % (0-1); Eosinophil# 0.13 X10^3/uL; Eosinophils% 1.3 % (0-5); Hematocrit 41.5 % (37-47); Lymphocyte % 13.4 % (19-41); Mean Corp Hgb Conc 31.3 g/dL (32-36); Mean Corpuscular Hgb 28.5 pg (27.0-32.0); Mean Platelet Vol. 10.1 fl (6.2-12.0); Monocyte# 0.87 X10^3/uL; NRBC Flagged by Analyzer 0 % (0-5); Neutrophil # 7.29 X10^3/uL (2.7-7.7); Neutrophil % 75.2 % (47-70); Platelet Count 272 K/mm3 (150-450); RBC Distribution Width CV 13.1 % (11.6-14.6); RBC Distribution Width SD 43.1 fl (35.1-43.9); Red Blood Count 4.56 M/mm3 (4.2-5.4); White Blood Count 9.7 K/mm3 (4.4-11.0)
[2020-01-16 13:13] LABS: ALB/GLOB Ratio 0.9 RATIO (0.9-2.4); AST(SGOT) 12 U/L (15-37); Alanine Aminotransfer ALT/SGPT 9 U/L (13-56); Alkaline Phosphatase 71 U/L (45-117); Anion Gap 8 (5-15); BUN 24 mg/dL (7-18); Calcium,Total 9.6 mg/dL (8.5-10.1); Chloride 103 mmol/L (98-107); Creatinine, Serum 0.62 mg/dL (0.55-1.02); EST Glomerular Filtration Rate 101 mL/min (>60); Est Glom Filt Rate - Afr Amer 122 mL/min (>60); Globulin 3.4 g/dL (2.2-4.2); Glucose 85 mg/dL (74-106); Potassium 3.5 mmol/L (3.5-5.1); Protein, Total 6.4 g/dL (6.4-8.2); Sodium Level 139 mmol/L (136-145)
--- NOTE | 2020-01-16 13:22 | RAD_ITS ---
STUDY: X-RAY - ABDOMEN/PELVIS REASON FOR EXAM: Female, 74 years old. abd pain, nausea, vomiting, constipation TECHNIQUE: AP supine and upright views of the abdomen and pelvis. COMPARISON: None. FINDINGS: Normal visualized lung bases. There is an abundance of fecal material throughout the colon. There is no demonstrated free abdominal air. The visualized liver, spleen and kidneys are grossly normal in size and morphology. Normal soft tissue structures. Normal visualized osseous structures. RAD/Abd Inc Decub and/or Erect IMPRESSION: There is an abundance of fecal material throughout the colon. Electronically Signed: Elizabeth Cobb, at 13:49 EDT Tel , Service support ,
== END ==
LOC: POLAB3 12:24 → RAD 13:20
PROVIDERS: PCP Family Medicine Geriatric Medicine; Referring Provider Family Medicine Geriatric Medicine; Visit Provider Family Medicine Geriatric Medicine
DX: R10.9 Unspecified abdominal pain (principal); E03.9 Hypothyroidism, unspecified; N39.0 Urinary tract infection, site not specified
CPT/HCPCS: 36415; 74019; 80053; 84443; 85025; 87086

== ENCOUNTER → 2020-01-25 09:43 | Outpatient (CLI) | payer MEDICARE, MEDICAID, SELFPAY ==
[2019-12-15 12:08] VITALS: BMI 41.1
--- NOTE | 2020-01-25 09:44 | MRI_ITS ---
STUDY: MRI BRAIN WITH AND WITHOUT CONTRAST REASON FOR EXAM: Female, 74 years old. dementia, Parkinson''s, increased tremors TECHNIQUE: Standardized multiplanar fat and water weighted pulse sequences were obtained. IV Dotarem 20ml was administered for the contrast portion of the examination. COMPARISON: None. FINDINGS: There is moderate cerebral atrophy with widening of the extra-axial spaces and ventricular dilatation. There are multiple white matter hyperintensities, distributed throughout the deep white matter tracts of the cerebral hemispheres, consistent with moderate chronic white matter ischemic changes. Normal bilateral basal ganglia. Normal thalami. There is no extra-axial fluid accumulation. Normal flow voids within the major intracranial circulation suggesting patency by spin echo criteria. Normal venous enhancement. There is no enhancing intra-axial or extra-axial abnormality. Normal sella turcica, pituitary gland, infundibular stalk, optic chiasm and hypothalamus. Normal tectal plate and pineal gland. There are chronic white matter ischemic changes of the fortunato. The midbrain and medulla are otherwise normal. Normal cerebellum. MRI/Brain W/WO Contrast IMPRESSION: No acute intracranial abnormality or masses. Moderate involutional changes. Electronically Signed: Merrill Whiting MD at 15:59 EDT Tel , Service support ,
== END ==
PROVIDERS: PCP Family Medicine Geriatric Medicine; Referring Provider Psychiatry & Neurology Neurology; Visit Provider Psychiatry & Neurology Neurology
DX: G20 Parkinson's disease (principal)
CPT/HCPCS: 70553; A9575

== ENCOUNTER → 2020-02-20 12:01 | Outpatient (CLI) | payer MEDICARE, MEDICAID, SELFPAY ==
[2020-02-16 18:21] VITALS: BMI 41.1
[2020-02-20 12:14] LABS: Absolute Lymphocyte Count 1.25 X10^3/uL (0.83-4.51); Absolute Neutrophil Count 6.3 X10^3/uL (2.0-7.7); Basophil# 0.06 X10^3/uL; Basophil% 0.7 % (0-1); Eosinophil# 0.19 X10^3/uL; Eosinophils% 2.3 % (0-5); Hematocrit 40.5 % (37-47); Lymphocyte # 1.25 X10^3/ul (4.0); Lymphocyte % 14.8 % (19-41); Mean Corp Hgb Conc 32.1 g/dL (32-36); Mean Corpuscular Hgb 28.9 pg (27.0-32.0); Mean Platelet Vol. 9.7 fl (6.2-12.0); Monocyte# 0.63 X10^3/uL; Monocyte% 7.5 % (0-10); NRBC Flagged by Analyzer 0 % (0-5); Neutrophil # 6.26 X10^3/uL (2.7-7.7); Neutrophil % 74.1 % (47-70); Platelet Count 280 K/mm3 (150-450); RBC Distribution Width CV 13.1 % (11.6-14.6); RBC Distribution Width SD 42.8 fl (35.1-43.9); White Blood Count 8.4 K/mm3 (4.4-11.0)
[2020-02-20 13:02] LABS: ALB/GLOB Ratio 0.9 RATIO (0.9-2.4); AST(SGOT) 14 U/L (15-37); Alanine Aminotransfer ALT/SGPT 11 U/L (13-56); Albumin, Serum 3.2 g/dL (3.2-5.0); Alkaline Phosphatase 77 U/L (45-117); Anion Gap 8 (5-15); BUN 18 mg/dL (7-18); Calcium,Total 9.8 mg/dL (8.5-10.1); Chloride 103 mmol/L (98-107); Creatinine, Serum 0.67 mg/dL (0.55-1.02); EST Glomerular Filtration Rate 92 mL/min (>60); Est Glom Filt Rate - Afr Amer 111 mL/min (>60); Globulin 3.5 g/dL (2.2-4.2); Glucose 155 mg/dL (74-106); Potassium 3.6 mmol/L (3.5-5.1); Protein, Total 6.7 g/dL (6.4-8.2); Sodium Level 140 mmol/L (136-145); Thyroid Stim Hormone (TSH) 1.63 uIU/mL (0.358-3.74)
[2020-02-20 13:39] LABS: Vitamin D,25 Hydroxy 42.8 ng/mL
== END ==
PROVIDERS: PCP Family Medicine Geriatric Medicine; Visit Provider Family Medicine Geriatric Medicine
DX: E11.65 Type 2 diabetes mellitus with hyperglycemia (principal); I10 Essential (primary) hypertension; E55.9 Vitamin D deficiency, unspecified
CPT/HCPCS: 36415; 80053; 82306; 84443; 85025

== ENCOUNTER → 2020-02-29 12:04 | Outpatient (CLI) | payer MEDICARE, MEDICAID, SELFPAY ==
[2020-02-16 18:21] VITALS: BMI 41.1
[2020-02-29 12:37] LABS: Magnesium 1.9 mg/dL (1.6-2.6)
[2020-02-29 12:45] LABS: Vitamin B12 402 pg/mL (211-911)
== END ==
PROVIDERS: PCP Family Medicine Geriatric Medicine; Visit Provider Family Medicine Geriatric Medicine
DX: S09.90XA Unspecified injury of head, initial encounter (principal); W19.XXXA Unspecified fall, initial encounter
CPT/HCPCS: 36415; 82607; 83735

== ENCOUNTER → 2020-02-29 12:22 | Outpatient (CLI) | payer MEDICARE, MEDICAID, SELFPAY ==
[2020-02-16 18:21] VITALS: BMI 41.1
--- NOTE | 2020-02-29 12:28 | CT_ITS ---
STUDY: CT BRAIN WITHOUT CONTRAST REASON FOR EXAM: Female, 74 years old. CLOSED HEAD INJURY RADIATION DOSAGE (If Supplied By Facility): CTDIvol = ( 44.99 ) mGy, DLP = ( 748.30 ) mGycm TECHNIQUE: Transaxial CT imaging of the brain was performed without administration of intravenous contrast material. Individualized dose optimization techniques were used for this CT. COMPARISON: Comparison is made with prior examination dated May 31, 2008. FINDINGS: Normal soft tissue structures. Normal calvarium. There is mild cerebral atrophy with widening of the extra-axial spaces and ventricular dilatation. There are areas of decreased attenuation within the white matter tracts of the supratentorial brain, consistent with microvascular disease changes. Normal basal ganglia and thalami. Normal brainstem. There is mild cerebellar atrophy. There is no intracranial hemorrhage. There are no findings of an acute ischemic infarction. Atherosclerotic calcification of the cavernous portions of the internal carotid arteries bilaterally. Normal visualized paranasal sinuses. CT/Brain/Head without Contrast IMPRESSION: Chronic involutional changes of the brain. Electronically Signed: Daniel Michel, at 12:50 EDT , Service support ,
== END ==
PROVIDERS: PCP Family Medicine Geriatric Medicine; Referring Provider Family Medicine Geriatric Medicine; Visit Provider Family Medicine Geriatric Medicine
DX: S09.90XA Unspecified injury of head, initial encounter (principal); W19.XXXA Unspecified fall, initial encounter
CPT/HCPCS: 36415; 70450; 82607; 83735

== ENCOUNTER → 2020-03-16 | Outpatient (CLI) | payer MEDICARE, MEDICAID, SELFPAY ==
[2020-02-16 18:21] VITALS: BMI 41.1
--- NOTE | 2020-03-16 | LES_PTH ---
PATIENT: SAMARA GILMORE LOC: [facility]#:[id number] AGE/SX: 74/F ROOM: RE03/16/[address]: Dr. Darren Kaur MD : 1945 BED: DIS: 03/16/2020 SPEC #: [id number] RECD: 03/16/20 12:24 STATUS: NICOLÁS REIngrid #: [id number] GONZALEZ: 03/16/20 00:[address]: Darren Kaur DEPT: SURGICAL PATHOLOGY RECD BY: Ivan Humphrey ENTERED: 03/16/20 12:43 SP TYPE: Lesion OTHR DR: Dr. Evens Munoz MD Tissues: Skin of forehead Procedures: Surgery Specimen Level IV HEADER OPERATION: Excision skin lesion 2.5 cm PRE-OP DIAGNOSIS: Basal cell carcinoma of face TISSUE SUBMITTED: Lesion forehead MICROSCOPIC DIAGNOSIS Skin lesion of forehead, biopsy: Basal cell carcinoma, superficial, nodular and focally ulcerated. Solar elastosis. See comment. AM:karlene 03/19/20 COMMENT The lesion appears to have been completely excised in the planes examined. MICROSCOPIC DESCRIPTION Slides are reviewed. GROSS DESCRIPTION Received in fixative is one container labeled with the patient's name and designated lesion forehead. The specimen consists of a piece of samayoa-white skin measuring 2.2 x 1 cm and up to 0.6 cm in thickness. There is raised samayoa lesion measuring 0.5 cm in diameter on the skin surface. The specimen is inked, serially sectioned and submitted entirely in two cassettes. Cassette 1 contains the tips of the skin lesion. / SJ:karlene 03/16/20 TC:0 CPT: 52408
== END | disposition home or self-care (01) ==
LOC: LABSPEC 12:29
PROVIDERS: PCP Family Medicine Geriatric Medicine; Referring Provider Otolaryngology; Visit Provider Otolaryngology
DX: C44.319 Basal cell carcinoma of skin of other parts of face (principal); L57.8 Other skin changes due to chronic exposure to nonionizing radiation
CPT/HCPCS: 88305

== ENCOUNTER → 2020-03-26 14:27 | Outpatient (CLI) | payer MEDICARE, MEDICAID, SELFPAY ==
[2020-02-16 18:21] VITALS: BMI 41.1
--- NOTE | 2020-03-26 14:40 | RAD_ITS ---
STUDY: X-RAY - LUMBAR SPINE REASON FOR EXAM: Female, 74 years old. Low back pain, sciatica, pain down both legs TECHNIQUE: Three view(s) of the lumbar spine were obtained. COMPARISON: None FINDINGS: Normal lumbar lordosis. There is no substantial scoliosis. There is a normal alignment of the vertebrae from L1 to L4. There is a grade 1 spondylolisthesis at L4-5.. There is multilevel endplate spondylosis of the lumbar vertebrae. There is multi-level degenerative disc disease with multi-level disc space narrowing. There is atherosclerotic calcification of the abdominal aorta without a demonstrated aneurysm. RAD/Lumbar Spine 2 or 3 Views IMPRESSION: Degenerative changes of the spine, as detailed above. Grade 1 spondylolisthesis at L4-5 Electronically Signed: Juan Manuel Steele MD at 19:08 EDT , Service support ,
== END ==
PROVIDERS: PCP Family Medicine Geriatric Medicine; Referring Provider Family Medicine Geriatric Medicine; Visit Provider Family Medicine Geriatric Medicine
DX: M43.16 Spondylolisthesis, lumbar region (principal)
CPT/HCPCS: 72100

== ENCOUNTER → 2020-05-21 11:22 | Outpatient (CLI) | payer MEDICARE, MEDICAID, SELFPAY ==
[2020-02-16 18:21] VITALS: BMI 41.1
[2020-05-21 12:40] LABS: Absolute Lymphocyte Count 1.48 X10^3/uL (0.83-4.51); Absolute Neutrophil Count 5.6 X10^3/uL (2.0-7.7); Basophil# 0.05 X10^3/uL; Basophil% 0.6 % (0-1); Eosinophil# 0.11 X10^3/uL; Eosinophils% 1.4 % (0-5); Hematocrit 36.6 % (37-47); Hemoglobin 11.8 g/dL (12.0-15.0); Lymphocyte # 1.48 X10^3/ul (4.0); Lymphocyte % 18.3 % (19-41); Mean Corp Hgb Conc 32.2 g/dL (32-36); Mean Corpuscular Hgb 29.2 pg (27.0-32.0); Mean Corpuscular Volume 90.6 fL (81-99); Mean Platelet Vol. 9.8 fl (6.2-12.0); Monocyte# 0.75 X10^3/uL; Monocyte% 9.3 % (0-10); NRBC Flagged by Analyzer 0 % (0-5); Neutrophil # 5.64 X10^3/uL (2.7-7.7); Neutrophil % 69.9 % (47-70); Platelet Count 225 K/mm3 (150-450); RBC Distribution Width CV 13.4 % (11.6-14.6); RBC Distribution Width SD 44.8 fl (35.1-43.9); Red Blood Count 4.04 M/mm3 (4.2-5.4); White Blood Count 8.1 K/mm3 (4.4-11.0)
[2020-05-21 13:00] LABS: AST(SGOT) 9 U/L (15-37); Alanine Aminotransfer ALT/SGPT 16 U/L (13-56); Albumin, Serum 3.1 g/dL (3.2-5.0); Alkaline Phosphatase 71 U/L (45-117); Anion Gap 3 (5-15); BUN 18 mg/dL (7-18); BUN/Creat Ratio 27.2 RATIO (10-20); Calcium,Total 9.6 mg/dL (8.5-10.1); Chloride 100 mmol/L (98-107); Creatinine, Serum 0.66 mg/dL (0.55-1.02); EST Glomerular Filtration Rate 93 mL/min (>60); Est Glom Filt Rate - Afr Amer 112 mL/min (>60); Globulin 3.2 g/dL (2.2-4.2); Glucose 156 mg/dL (74-106); Protein, Total 6.3 g/dL (6.4-8.2); Sodium Level 138 mmol/L (136-145); Thyroid Stim Hormone (TSH) 2.51 uIU/mL (0.358-3.74)
[2020-05-21 13:04] LABS: Vitamin D,25 Hydroxy 42.9 ng/mL
== END ==
PROVIDERS: PCP Family Medicine Geriatric Medicine; Visit Provider Family Medicine Geriatric Medicine
DX: E11.65 Type 2 diabetes mellitus with hyperglycemia (principal); E55.9 Vitamin D deficiency, unspecified; I10 Essential (primary) hypertension
CPT/HCPCS: 36415; 80053; 82306; 84443; 85025

== ENCOUNTER 2020-08-19 20:54 | Emergency (ER) | payer MEDICARE, MEDICAID, SELFPAY ==
[2020-08-19 20:55] VITALS: BP 193/85; PULSE 81; RESP 18; TEMP 36.3; O2SAT 96; BMI 40.5
[2020-08-19 20:59] VITALS: O2SAT 98
--- NOTE | 2020-08-19 21:30 | RAD_ITS ---
STUDY: X-RAY - LEFT ELBOW REASON FOR EXAM: Female, 74 years old. FALL, LACERATION TO POSTERIOR ELBOW AND PAIN TECHNIQUE: 3 view(s) of the elbow. COMPARISON: None. FINDINGS: Normal visualized humerus, radius and ulna. Degenerative spurring is noted of the coronoid process. Normal radiocapitellar and ulnotrochlear articulations. There is posterior soft tissue injury. RAD/Elbow min 3 Views IMPRESSION: Posterior soft tissue injury of the elbow. Electronically Signed: Trey Barkley DO at 22:10 EST Tel [phone], Service support ,
[2020-08-19] MEDS: Lidocaine 1% (20 ml mdv) 20 ML Vial INFILT (21:42)
--- NOTE | 2020-08-19 21:58 | ED.VISSUMM ---
- ER Visit Summary Date of Service: 08/19/20 Chief Complaint: Fall History of Present Illness: The patient is a 74 F who presents with a fall that occurred today. Patient has a history of Parkinson's disease and falls frequently. Patient states she normally walks with a walker. Patient states she went to answer the door because they were [place] Carolers at her door. Patient states she fell onto her left elbow. Patient denies any head injury or loss of consciousness. Patient denies any syncope. Patient denies any chest pain or shortness of breath. Patient denies any other injuries. Patient states her last tetanus was between 5 and 10 years ago. Physical Examination: Vital signs are stable. Patient is afebrile. Patient is in no acute distress. Skin is warm and dry. There is a 3 cm full-thickness curvilinear laceration over the posterior aspect of the left elbow. There is some mild bleeding noted. There is no bony crepitance or step-off. There is some pain with extreme flexion and extreme extension. There is no obvious deformity noted. Cranial nerves II through XII are intact. There are no focal motor or sensory deficits noted. Radial pulses are equal bilaterally. There is some mild tenderness over the left thigh. Patient states this is chronic for her and is not related to the fall tonight. Test Results: X-rays of the left elbow were obtained. There are 3 views. On my interpretation, there is no acute fracture. There is some soft tissue swelling. There is no joint effusion. Radiologist also interpreted the x-rays and agrees. Emergency Department Course and Treatment: The wound was cleaned and irrigated with copious amounts of normal saline. The wound was anesthetized with 1% plain lidocaine locally. The wound was closed with 5 simple interrupted #4-0 nylon sutures under sterile technique. Patient tolerated the procedure well. Bacitracin dressing was applied. Patient was instructed to keep the wound clean and dry. Patient was instructed to follow-up with her primary care physician in 7 days for wound recheck and suture removal. Patient understood and was agreeable with the plan. All questions were answered. Disposition: Discharge home Impression: 1. Left elbow laceration This note was generated with [employer] software. It may contain incorrect words, spelling, and punctuation that were not noted in review of the chart prior to signing ED Disposition - Plan for ED Patient: Disposition: Home or Assisted Living Diagnosis: Laceration of left elbow Instructions: ED Laceration: All Closures Referrals: [facility] [Other] - 7 Days for suture removal
[2020-08-19 22:08] VITALS: BP 163/89; PULSE 81
--- NOTE | 2020-08-19 22:20 | ED.RN ---
group home updated on patients condition and status
[2020-08-19] MEDS: BACITRACIN 15 GM Tube 1 APPLIC TOPICAL (23:17)
[2020-08-20] VITALS: BP 166/74; PULSE 80; RESP 17; O2SAT 99
== END 2020-08-20 00:35 | disposition home or self-care (01) ==
PROVIDERS: Emergency Provider Emergency Medicine
DX: S51.012A Laceration without foreign body of left elbow, initial encounter (principal); W18.30XA Fall on same level, unspecified, initial encounter; Y93.A2 Activity, calisthenics; Y92.009 Unspecified place in unspecified non-institutional (private) residence as the place of occurrence of the external cause; R29.6 Repeated falls; G20 Parkinson's disease; E11.9 Type 2 diabetes mellitus without complications; Z79.4 Long term (current) use of insulin
CPT/HCPCS: 12002; 73080; 99285

== ENCOUNTER 2020-08-22 18:53 | Emergency (ER) | payer MEDICARE, MEDICAID, SELFPAY ==
[2020-08-22 18:56] VITALS: BP 185/79; PULSE 76; PULSE 79; RESP 17; RESP 18; TEMP 36; O2SAT 95; O2SAT 96; BMI 42.7
[2020-08-22 19:00] VITALS: BP 185/79; PULSE 78; RESP 17; TEMP 36; O2SAT 95
--- NOTE | 2020-08-22 19:14 | ED.VIS.GEN ---
History of Present Illness Chief Complaint: Upper Extremity Injury Informant: Patient Narrative: Patient is a 74-year-old female with a past medical history of Parkinson's, diabetes who presents to the emergency department for swelling, redness, warmth and tenderness to the left forearm. She fell 3 days ago and had a laceration repair. She states that she noticed the swelling yesterday. It is only tender to the touch but no pain at rest. No significant pain with arm movements. No restriction of range of motion. She denies any systemic symptoms including any fever/chills. She denies any abdominal pain or nausea/vomiting. No streaking up the arm. She states her blood sugars have been in the mid 100s to upper 100s. Past Medical History - Allergies and Home Meds Allergies/Adverse Reactions: Allergies Penicillins Allergy (Verified 08/22/20 18:54) Rash hydrocodone Adverse Reaction (Verified 08/22/20 18:54) hallucinations Primary Care Physician: [facility] Doctor,Out of [NON-STAFF] - 2 Days for wound check Prior records reviewed: Yes Past Medical History: - - Hyperlipidemia, hypertension, diabetes, Parkinson Smoking Status: Never smoker Review of Systems All systems negative except as indicated General: Denies: Chills, Fever ENT: Denies: Rhinorrhea, Sore throat Cardiovascular: Denies: Chest pain, Palpitations Respiratory: Denies: Dyspnea, Cough, Dyspnea on exertion Gastrointestinal: Denies: Abdominal pain, Nausea, Vomiting Musculoskeletal: Reports: Swelling, Extremity Pain. Denies: Myalgias, Neck pain, Back pain Skin: Reports: Wounds. Denies: Rash, Abscess Neurological: Denies: Headache, Weakness, Numbness Physical Exam Vital Signs/Narrative: Vital Signs Temp Pulse Resp BP Pulse Ox 08/22/20 19:00 96.8 F L 78 17 185/79 H 95 08/22/20 18:56 96.8 F L 76 17 185/79 H 96 Inital Vital Signs reviewed: Yes General: Well nourished, Well developed, No Acute Distress Head: Normocephalic, Atraumatic Eyes: Perrl, EOMI ENT: Moist mucous membranes, No rhinorrhea Neck: Supple, Nontender Cardiovascular: Regular rate, Regular rhythm, No murmurs Respiratory: No distress, CTA bilaterally, Chest nontender Abdomen: Soft, Nontender, Nondistended Extremities: - - [address] over the left elbow. No appreciable abscess. On the dorsal aspect of the forearm there is redness, warmth, tenderness. The edema does go down to the hand. It is not circumferential. Good sewer line repairer strength. Good sensation. 2+ radial pulse. Skin: Normal color, No rash Neurological: Alert, Oriented x3, Normal Strength, Normal Sensation Psychological: Normal affect, Normal Mood Diagnostic/Tx/Re-eval - Medical Decision Making Patient presents emerge department for swelling and pain to the left forearm. She does have a laceration repair 3 days ago. She had x-rays performed at that time which was negative. I do believe she has an infection of that left forearm as it is tender, warm, swollen and red. She does have a very distant history of allergy to penicillin with a rash. We will put her on Bactrim and Keflex. She has no systemic symptoms. Her vital signs are within normal limits and she is not tachycardic or have a fever. Does not meet SIRS criteria. No lab work or imaging indicated at this time. She is to monitor for evidence of spreading up the arm or wrapping around the arm. If she notes any fevers or chills she is to return to the emergency department for repeat evaluation. She otherwise is to follow-up with her PCP. She understands and is agreeable this plan. Discharged home in stable condition. First dose of antibiotics given here in the ED. All questions were answered. ED Disposition - Plan for ED Patient: Disposition: Home or Assisted Living Diagnosis: Cellulitis of forearm, left Instructions: ED Cellulitis Prescriptions: Smz/Tmp Ds [Bactrim Ds] 1 tab PO BID 7 Days #14 tab Transmission Status: Received by [facility] Cephalexin [Keflex] 500 mg PO Q6 7 Days #28 cap Transmission Status: Received by [facility] Referrals: [facility] Doctor,Out of [NON-STAFF] - 2 Days for wound check
[2020-08-22] MEDS: Cephalexin 250 MG Capsule 500 MG PO (19:24)
[2020-08-22] MEDS: Smz/Tmp Ds Tablet 1 TABLET PO (19:25)
== END 2020-08-22 22:00 | disposition home or self-care (01) ==
LOC: ED 19:37
PROVIDERS: Emergency Provider Emergency Medicine; PCP Family Medicine
DX: L03.114 Cellulitis of left upper limb (principal); I10 Essential (primary) hypertension; E11.9 Type 2 diabetes mellitus without complications; E78.5 Hyperlipidemia, unspecified; G20 Parkinson's disease; Z88.0 Allergy status to penicillin; Z88.5 Allergy status to narcotic agent; Z79.4 Long term (current) use of insulin; Z79.82 Long term (current) use of aspirin; Z79.899 Other long term (current) drug therapy
CPT/HCPCS: 99285

== ENCOUNTER 2020-08-23 23:06 | Observation (INO) | payer MEDICARE, MEDICAID, SELFPAY ==
[2020-08-22 18:56] VITALS: BMI 42.7
[2020-08-23 23:06] VITALS: BP 189/82; PULSE 85; RESP 16; TEMP 36.4; O2SAT 96
[2020-08-23 23:10] VITALS: BP 189/82; PULSE 85; RESP 16; TEMP 36.4; O2SAT 96; BMI 42.3
--- NOTE | 2020-08-23 23:23 | RAD_ITS ---
STUDY: X-RAY - PELVIS AND LEFT HIP REASON FOR EXAM: Female, 74 years old. FELL, LEFT HIP PAIN TECHNIQUE: 3 views of the pelvis and hip. COMPARISON: None. FINDINGS: There is a non-specific bowel gas pattern. Normal visualized soft tissue structures. Normal bilateral iliac wings, sacroiliac joints and visualized sacrum. Normal bilateral superior and inferior pubic rami. Normal pubic symphysis. Normal bilateral ischial tuberosities. Normal visualized femoral head. Normal acetabulum. There is moderate articular joint space narrowing of the hip. RAD/HIP, UNI W/ Pelvis 2-3 Views IMPRESSION: No evidence of acute fracture or dislocation. If patient is nonweightbearing recommend MRI imaging for further characterization. Electronically Signed: Dejon Dacosta DO at 0:26 EST , Service support ,
--- NOTE | 2020-08-23 23:23 | RAD_ITS ---
STUDY: X-RAY CHEST REASON FOR EXAM: Female, 74 years old. WEAKNESS TECHNIQUE: Single AP portable view of the chest. COMPARISON: None. FINDINGS: Low lung volume and likely interstitial and vascular crowding is present. There is no demonstrated pleural abnormality. Normal size heart. Normal mediastinum and divina. Normal visualized pulmonary arteries. Normal visualized aortic arch and descending thoracic aorta. Normal visualized thoracic spine. Normal visualized ribs, clavicles, and shoulders. There is no demonstrated abnormality of the visualized soft tissue structures of the upper abdomen. RAD/Chest 1 View (Portable) IMPRESSION: Low lung volume with interstitial and vascular crowding with no distinct focal airspace disease. Electronically Signed: Dejon Dacosta, at 0:26 EST , Service support ,
--- NOTE | 2020-08-23 23:25 | ED.VIS.FALL ---
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 Negative for: Parasthesias, Loss of function, Inability to ambulate - was able to stand and WB on BLE after fall tonight, Loss of consciousness Narrative: 74-year-old female with Parkinson's has been having more frequent falls lately, this is her third visit to the ER for falls this past week. She states she has been feeling weak all over and tired for about 2 months, and her Parkinson's medications do not seem to be controlling her Parkinson's very well this past week. This time she was standing with her walker and states she was shaking so bad, she could not continue to stand and fell to the floor, injuring herself somewhere around the left hip which is the only place she has pain right now. She was able to weight-bear on the left lower extremity after the fall with assistance. She is currently in assisted living. Her medication list includes a baby aspirin daily, no anticoagulants. She denies hitting her head. - Past Medical History (1) Atherosclerotic heart disease of [place] coronary artery without angina pectoris Status: Chronic Comment: Mild (2) Basal cell carcinoma of right cheek Status: Chronic (3) Essential hypertension Status: Chronic (4) Mixed hyperlipidemia Status: Chronic (5) Parkinsons disease Status: Chronic (6) Type 2 diabetes mellitus Status: Chronic Past Medical History - Allergies and Home Meds Allergies/Adverse Reactions: Allergies Penicillins Allergy (Verified 08/22/20 18:54) Rash hydrocodone Adverse Reaction (Verified 08/22/20 18:54) hallucinations Lives: Retirement - Assisted living Smoking Status: Never smoker - Family History Maternal Family History: Family History (Last Reviewed 08/21/20 @ 15:10 by Arleen Davila) Father CVA (cerebral vascular accident) Mother Congestive heart failure (CHF) Brother CAD (coronary artery disease) Hypertension History of coronary artery bypass surgery History of mitral valve repair Sister CAD (coronary artery disease) Brother Hypertension Sister Cancer Review of Systems General: Reports: Malaise. Denies: Chills, Fever, Sweats Eyes: Denies: Visual changes - bilaterally, Diplopia ENT: Denies: Rhinorrhea, Sore throat Cardiovascular: Denies: Chest pain, Palpitations Respiratory: Denies: Dyspnea, Cough, Dyspnea on exertion Gastrointestinal: Denies: Abdominal pain, Nausea, Vomiting, Diarrhea, Melena, Hematochezia Genitourinary: Denies: Dysuria, Hematuria, Frequency Musculoskeletal: Reports: Extremity Pain. Denies: Back pain, Swelling Skin: Reports: Wounds - from prior fall, left elbow. Denies: Rash Neurological: Denies: Headache, Weakness, Numbness Physical Exam Vital Signs/Narrative: Vital Signs Temp Pulse Resp BP Pulse Ox 08/23/20 23:10 97.5 F L 85 16 189/82 H 96 08/23/20 23:06 97.5 F L 85 16 189/82 H 96 Inital Vital Signs reviewed: Yes General: Well nourished, Well developed, Obese, - - well-appearing, nad Head: Normocephalic, Atraumatic Eyes: Perrl, EOMI ENT: TM's clear, No hemotympanum or drainage, No trauma Neck: Nontender, Full ROM Cardiovascular: Regular rate, Regular rhythm, No murmurs Respiratory: No distress, CTA bilaterally, Chest nontender Abdomen: Soft, Nontender, Nondistended, Normal bowel sounds Back: Nontender. Negative for: Spinal Tenderness Extremeties: Full range of motion throughout all 4 extremities, including the left hip with no pain in the groin/hip joint with internal and external rotation. Tender at the left ASIS and around into the posterior left pelvic brim, the pelvis is stable to AP compression and lateral compression. Nontender ischial tuberosity and sacrum. Skin: Normal color, No rash, - - Sutured laceration left olecranon healing without signs of dehiscence or infection or discharge; sutures C/D/I Neurological: Alert, Oriented x3, Cranial nerves II-XII grossly intact, Normal Strength, Normal Sensation Psychological: Normal affect, Normal Mood Diagnostic/Tx/Re-eval Chest X-Ray - ED: 1 View, Read by ED Physician, No Acute Disease, Chronic Changes Laboratory Tests 08/23/20 08/23/20 08/23/20 Range/Units 23:55 23:45 23:35 WBC 9.8 (4.4-11.0) K/mm3 RBC 3.97 L (4.2-5.4) M/mm3 Hgb 11.1 L (12.0-15.0) g/dL Hct 36.0 L (37-47) % MCV 90.7 (81-99) fL MCH 28.0 (27.0-32.0) pg MCHC 30.8 L (32-36) g/dL RDW Std Deviation 42.8 (35.1-43.9) fl RDW Coeff of Kimberly 13.0 (11.6-14.6) % Plt Count 258 (150-450) K/mm3 MPV 9.2 (6.2-12.0) fl Immature Gran % (Auto) 1.100 H (0.0-0.9) % Neut % (Auto) 78.0 H (47-70) % Lymph % (Auto) 9.6 L (19-41) % [place] % (Auto) 9.1 (0-10) % Eos % (Auto) 1.6 (0-5) % Baso % (Auto) 0.6 (0-1) % Absolute Neuts (auto) 7.7 (2.0-7.7) X10^3/uL Absolute Lymphs (auto) 0.94 (0.83-4.51) X10^3/uL Nucleated RBC % 0 (0-5) % Sodium 136 (136-145) mmol/L Potassium 5.1 (3.5-5.1) mmol/L Chloride 102 (98-107) mmol/L Carbon Dioxide 28.0 (21.0-32.0) mmol/L Anion Gap 6 (5-15) BUN 24 H (7-18) mg/dL Creatinine 0.76 (0.55-1.02) mg/dL Estim Creat Clear Calc 40.21 ml/min Est GFR (MDRD) Af Amer 95 (>60) mL/min Est GFR (MDRD) Non-Af 79 (>60) mL/min BUN/Creatinine Ratio 31.6 H (10-20) RATIO Glucose 132 H (74-106) mg/dL Calcium 9.7 (8.5-10.1) mg/dL Troponin I < 0.015 (<0.045) ng/mL Urine Color Yellow (Yellow) Urine Clarity Clear (Clear) Urine pH 6.0 (5.0 - 8.0) Ur Specific [place] 1.025 (1.002-1.030) Urine Protein 15 H (Negative) mg/dl Urine Glucose (UA) Normal (Normal) mg/dl Urine Ketones 5 H (Negative) mg/dl Urine Occult Blood 10 H (Negative) /ul Urine Nitrite Negative (Negative) Urine Bilirubin Negative (Negative) mg/dL Urine Urobilinogen Normal (Normal) mg/dl Ur Leukocyte Esterase 25 H (Negative) /ul Urine RBC 0 SEEN (0-5) /hpf Urine WBC 0 SEEN (0-5) /hpf Ur Squamous Epith Cells 10-25 SEEN (5-10) /hpf Urine Bacteria 0 SEEN (None Seen) /hpf Urine Mucus 2+ (<or=2+) /hpf - Rhythm Strip Rhythm Strip: Sinus Rhythm Rate: 79 Ectopy: None - EKG Initial EKG Interpretation: Sinus Rhythm, No Acute Injury Pattern - Medical Decision Making On my interpretation, 1 view of the chest shows chronic changes, hypoventilation likely due to obesity, and no acute abnormalities. On my interpretation, 3 views of the pelvis and left hip show no acute fractures or dislocations. Labs are nonspecific, there is no sign of pneumonia, urinary tract infection, or acute metabolic disturbance that explains her weakness. I suspect this may be progressive debility related to her Parkinson's disease, which is how the patient feels. Regardless, I feel she needs to be placed to a higher level of care. I had nurses call to see if the facility she is at has any [place] [facility] beds, and at this time they do not. Social work is not available at this time, so I am planning to admit her for placement. Given that, she will need a Covid test. Rapid antigen was performed, and is negative. ED Disposition - Plan for ED Patient: Disposition: Acute Care Hospital [facility] Diagnosis: Multiple falls, Debility, Parkinsons disease, Contusion of pelvis
[2020-08-23 23:56] LABS: Bacteria 0 SEEN /hpf (None Seen); Red Blood Cells-Urine 0 SEEN /hpf (0-5); White Blood Cells 0 SEEN /hpf (0-5)
[2020-08-24] VITALS (7 sets, daily range): BP systolic 135–177; BP diastolic 51–92; PULSE 72–94; RESP 16–18; TEMP 36.4–36.9; O2SAT 95–97; BMI 39.3; BMI 39.4
[2020-08-24] LABS: Absolute Lymphocyte Count 0.94 X10^3/uL (0.83-4.51); Absolute Neutrophil Count 7.7 X10^3/uL (2.0-7.7); Basophil# 0.06 X10^3/uL; Basophil% 0.6 % (0-1); Eosinophil# 0.16 X10^3/uL; Eosinophils% 1.6 % (0-5); Hemoglobin 11.1 g/dL (12.0-15.0); Lymphocyte # 0.94 X10^3/ul (4.0); Lymphocyte % 9.6 % (19-41); Mean Corp Hgb Conc 30.8 g/dL (32-36); Mean Corpuscular Volume 90.7 fL (81-99); Mean Platelet Vol. 9.2 fl (6.2-12.0); Monocyte# 0.89 X10^3/uL; Monocyte% 9.1 % (0-10); NRBC Flagged by Analyzer 0 % (0-5); Neutrophil # 7.65 X10^3/uL (2.7-7.7); Platelet Count 258 K/mm3 (150-450); RBC Distribution Width SD 42.8 fl (35.1-43.9); Red Blood Count 3.97 M/mm3 (4.2-5.4); White Blood Count 9.8 K/mm3 (4.4-11.0)
[2020-08-24 00:01] LABS: Color, Urine Yellow (Yellow); Glucose, Dipstick Normal (Normal); Ketone-Dipstick 5 mg/dl (Negative); Leukocyte Esterase-Dipstick 25 /ul (Negative); Nitrite-Dipstick Negative (Negative); Occult Blood-Urine 10 /ul (Negative); Protein-Dipstick 15 mg/dl (Negative); Specific Gravity, Urine 1.025 (1.002-1.030); Urine Bilirubin Dipstick Negative (Negative); Urine Clarity Clear (Clear); Urine Urobilinogen Normal (Normal)
[2020-08-24 00:11] LABS: Anion Gap 6 (5-15); BUN 24 mg/dL (7-18); BUN/Creat Ratio 31.6 RATIO (10-20); Calcium,Total 9.7 mg/dL (8.5-10.1); Chloride 102 mmol/L (98-107); Creatinine, Serum 0.76 mg/dL (0.55-1.02); EST Glomerular Filtration Rate 79 mL/min (>60); Est Glom Filt Rate - Afr Amer 95 mL/min (>60); Estimated Creatinine Clearance 40.21 ml/min; Glucose 132 mg/dL (74-106); Potassium 5.1 mmol/L (3.5-5.1); Sodium Level 136 mmol/L (136-145)
[2020-08-24 00:15] LABS: Mucous, Urine 2+ /hpf (<or=2+); Squamous Epithelial Cells - UA 10-25 SEEN /hpf (5-10)
--- NOTE | 2020-08-24 01:11 | HP.PCM_ITS ---
Problem List (1) Multiple falls Status: Acute (2) Debility Status: Acute (3) Type 2 diabetes mellitus Status: Chronic (4) Mixed hyperlipidemia Status: Chronic (5) Essential hypertension Status: Chronic (6) Parkinsons disease Status: Chronic History of Present Illness Date of Admission: 08/24/20 Chief Complaint: Fall. The patient is a 74 year old F with past medical history as mentioned above presented to the emergency room because of fall. Patient had a history of Parkinson's disease and she has been having significant shakiness and tremors. She states that because of the sickness, she lost her balance and she fell. She denied significant trauma today. Patient came to the emergency department twice in the last 4 days because of recurrent falls due to significant shakiness and tremors secondary to Parkinson's disease. Yesterday, she came to ED because of fall with laceration of the left elbow which was sutured and she was sent home on Keflex and Bactrim. 4 days ago, she came with another fall, had different x- rays of the left elbow and showed no fracture. She had history of Parkinson's disease and she has been on carbidopa levodopa and she lives at the assisted living. She will history of type 2 diabetes mellitus which seemed to be under fair control with Metformin, Lantus and pioglitazone. She will history of hypertension which is under control with valsartan/HCTZ. In the emergency department, her blood pressure was elevated, other vital signs were stable. Routine blood work was remarkable for hemoglobin of 11.1 g/dL which is chronic, otherwise unremarkable. EKG revealed normal sinus rhythm without evidence of acute ischemic changes. Troponin was negative. Chest x-ray showed no acute findings. X-ray of the pelvis and hip showed no acute fractures or dislocations. COVID-19 antigen is negative. She is being admitted for physical debility/functional decline and frequent falls for placement to [facility] facility. Past Medical History Past Medical History (Chronic Problems): Chronic Problems (Last Reviewed 08/21/20 @ 15:10 by Arleen Davila) Type 2 diabetes mellitus (Chronic) Mixed hyperlipidemia (Chronic) Essential hypertension (Chronic) Atherosclerotic heart disease of [place] coronary artery without angina pectoris (Chronic) Mild Parkinsons disease (Chronic) Basal cell carcinoma of right cheek (Chronic) Medical History: Medical History (Last Reviewed 08/21/20 @ 15:10 by Arleen Davila) Type 2 diabetes mellitus (Chronic) E11.9 Mixed hyperlipidemia (Chronic) E78.2 Essential hypertension (Chronic) I10 Atherosclerotic heart disease of [place] coronary artery without angina pectoris (Chronic) I25.10 Mild Parkinsons disease (Chronic) G20 Arthritis M19.90 Vitamin deficiency E56.9 Depression F32.9 History of back problems Allergies Penicillins Allergy (Verified 08/22/20 18:54) Rash hydrocodone Adverse Reaction (Verified 08/22/20 18:54) hallucinations Home Medications: Ambulatory Orders Medication Instructions Recorded Aspirin [Aspir 81] 81 mg PO DAILY 03/28/19 Atorvastatin Calcium [Lipitor] 40 mg PO QHS 03/28/19 Calcium Carbonate [Calcium] 600 mg PO BID 03/28/19 Levothyroxine [Synthroid] 125 mcg PO DAILY 03/28/19 Loratadine [Claritin] 10 mg PO DAILY 03/28/19 Metformin HCl 1,000 mg PO BID 03/28/19 Pioglitazone [Actos] 30 mg PO DAILY 03/28/19 Venlafaxine HCl [Effexor Xr] 150 mg PO DAILY 03/28/19 Acetaminophen [Tylenol Tablet] 650 mg PO Q4H PRN PRN tab 04/01/19 bisacodyl 5 mg tablet,delayed 5 mg PO BID tab 12/15/19 release calcium carbonate 200 mg calcium 200 mg PO BID 12/15/19 (500 mg) chewable tablet insulin glargine 100 unit/mL 20 unit SC QHS ml 12/15/19 subcutaneous solution potassium chloride 10 mEq 10 meq PO TID tab 02/07/20 tablet,extended release sennosides 8.6 mg-docusate sodium 2 tab-cap PO BID tab 02/07/20 50 mg tablet donepezil 10 mg tablet 10 mg PO QHS #30 tab 02/16/20 cyanocobalamin (vitamin B-12) 1,000 mcg IM QMONTH #1 ml 06/21/20 1,000 mcg/mL injection solution Ergocalciferol [Vitamin D] 50,000 unit PO Q7D 08/19/20 Olopatadine HCl [Patanol] 1 drp EACH EYE BREAKFAST 08/19/20 Valsartan/Hydrochlorothiazide 1 ea PO DAILY 08/19/20 [Valsartan-Hctz 320-25 mg Tab] bupropion HCl 75 mg tablet 150 mg PO DAILY tab 08/21/20 carbidopa 25 mg-levodopa 100 mg 2 tab PO 4X/DAY #240 tab 08/21/20 tablet ondansetron HCl 4 mg tablet 4 mg PO Q8H PRN #90 tab 08/21/20 Cephalexin [Keflex] 500 mg PO Q6 7 Days #28 cap 08/22/20 Smz/Tmp Ds [Bactrim Ds] 1 tab PO BID 7 Days #14 tab 08/22/20 Surgical History: Surgical History (Last Reviewed 08/21/20 @ 15:10 by Arleen Davila) History of bilateral knee replacement Z96.653 History of cataract surgery Z98.49 History of cholecystectomy Z90.49 Surgical History: cholecystectomy, total knee arthroplasty Psychiatric History: Depression METABOLIC SPECIALIST History: No pertinent METABOLIC SPECIALIST history Lives: - - Assisted living. Smoking Status: Never smoker Alcohol: None Drugs: None - *Family History Maternal Family History: Family History (Last Reviewed 08/21/20 @ 15:10 by Arleen Davila) Father CVA (cerebral vascular accident) Mother Congestive heart failure (CHF) Brother CAD (coronary artery disease) Hypertension History of coronary artery bypass surgery History of mitral valve repair Sister CAD (coronary artery disease) Brother Hypertension Sister Cancer Review of Systems Constitutional: Reports: Weakness. Denies: Anorexia, Chills, Fever Eyes: Denies: Blurred vision, Double vision, Drainage, Redness HEENT: Denies: Difficulty Hearing, Dysphasia, Ear Pain, Eye Pain, Nasal Congestion, Sore Throat Cardiovascular: Denies: Chest Pain, Chest Pressure, Edema, Heaviness, Palpitations Respiratory: Denies: Cough, Pleuritic Pain, Shortness of Breath, Sputum production, Wheezing Gastrointestinal: Denies: Abdominal Pain, Constipation, Diarrhea, Nausea, Vomiting Genitourinary: Denies: Dysuria, Frequency, Hematuria Musculoskeletal: Denies: Arm Pain, Back Pain, Foot Pain Skin: Denies: Dryness, Rash Neurological: Denies: Balance problems, Blurred vision, Double vision, Change in Speech, Slurred speech, Focal weakness, Headaches, Incoordination Psychiatric: Reports: Depression. Denies: Anxiety Endocrine: Denies: Change in Body Habitus, Polydipsia, Polyuria VTE Information - Inpt Only VTE Present on Admission: No VTE Mechan Device Prophylaxis: None VTE Pharm Prophylaxis ordered?: Yes Patient Problems: Active and Suspected Problems (Last Reviewed 08/21/20 @ 15:10 by Arleen Davila) Multiple falls (Acute) Debility (Acute) Contusion of pelvis (Acute) - Physical Exam Vitals/I&O's: Vital Signs Temp Pulse Resp BP Pulse Ox 97.5 F L 85 16 189/82 H 96 08/23/20 23:10 08/23/20 23:10 08/23/20 23:10 08/23/20 23:10 08/23/20 23:10 Oxygen Delivery Method Room Air Weight: 239 lb 3.225 oz Body Mass Index (BMI) 42.3 Finger Stick Blood Glucose 176 General: Alert, Oriented x3, Cooperative, No apparent distress HEENT: Atraumatic, PERRLA, EOMI, Normocephalic Oral: Moist Mucosa, No Gingival or Mucosal Lesions/ Ulcerations Neck: Supple, No JVD, Negative Carotid Bruits, Trachea Midline, Thyroid Normal Size and Texture Lungs: Clear to auscultation, Normal air movement, No rhonchi, No wheeze, No rales Cardiovascular: Regular rate, Regular Rhythm, Normal S1, Normal S2, PMI Normal Abdomen: Bowel Sounds Present, Soft, Non Tender, Non-Distended, No Hepato- splenomegaly, Obese Extremities: No clubbing, No cyanosis, No edema Skin: No rashes, No breakdown Lymphatic: No Cervical, Supraclavicular, or Inguinal Adenopathy Neurological: Cranial nerves II-XII grossly intact, Motor Exam 5/5 strength throughout Psych/Mental Status: Normal Affect, Appropriate, Alert and oriented to time, place, person, mood and affect Laboratory Results 08/23/20 23:35: Sodium 136, Potassium 5.1, Chloride 102, Carbon Dioxide 28.0, Anion Gap 6, BUN 24 H, Creatinine 0.76, Estim Creat Clear Calc 40.21, Est GFR (MDRD) Af Amer 95, Est GFR (MDRD) Non-Af 79, BUN/Creatinine Ratio 31.6 H, Glucose 132 H, Calcium 9.7, Troponin I < 0.015 08/23/20 23:45: Urine Color Yellow, Urine Clarity Clear, Urine pH 6.0, Ur Specific [place]win 1.025, Urine Protein 15 H, Urine Glucose (UA) Normal, Urine Ketones 5 H, Urine Occult Blood 10 H, Urine Nitrite Negative, Urine Bilirubin Negative, Urine Urobilinogen Normal, Ur Leukocyte Esterase 25 H, Urine RBC 0 SEEN, Urine WBC 0 SEEN, Ur Squamous Epith Cells 10-25 SEEN, Urine Bacteria 0 SEEN, Urine Mucus 2+ 08/23/20 23:55: WBC 9.8, RBC 3.97 L, Hgb 11.1 L, Hct 36.0 L, MCV 90.7, MCH 28.0, MCHC 30.8 L, RDW Std Deviation 42.8, RDW Coeff of Kimber[place] 13.0, Plt Count 258, MPV 9.2, Immature Gran % (Auto) 1.100 H, Neut % (Auto) 78.0 H, Lymph % (Auto) 9.6 L, Schleicher % (Auto) 9.1, Eos % (Auto) 1.6, Baso % (Auto) 0.6, Absolute Neuts (auto) 7.7, Absolute Lymphs (auto) 0.94, Nucleated RBC % 0 Assessment/Plan All Active Problems (Last Reviewed 08/21/20 @ 15:10 by Arleen Davila) Multiple falls (Acute) Debility (Acute) Contusion of pelvis (Acute) This is a 74 years old female patient presented to the medicine because of mechanical fall secondary to shakiness and tremors due to Parkinson's disease, came to the emergency department twice in the last 4 days with the same complaint and she is being admitted for PT OT and she will need placement to penitentiary facility. #1 physical debility/functional decline/multiple falls: Due to age, multiple medical problems including Parkinson's disease. Patient lives at the assisted living. She came to the ER twice in the last 4 days because of same complaint. She had left elbow laceration which was sutured and was discharged on Keflex and Bactrim. No fractures on the x-ray of the left elbow. Plan: Admit to [facility] floor for observation, Tylenol as needed, continue Keflex for left elbow laceration which was sutured and minimal erythema, discontinue Bactrim, PT OT evaluation and treatment, case management consult and patient will need placement to penitentiary facility. #2 Parkinson's disease: Continue carbidopa levodopa and donepezil. #3 type 2 diabetes mellitus: ADA diet, Accu-Cheks, insulin sliding scale, continue Lantus and Metformin as well as pioglitazone. #4 hypertension: Blood pressure elevated, continue valsartan/HCTZ, start IV hydralazine as needed. #5 hypothyroidism: Continue levothyroxine, TSH was normal on May,. #6 hyperlipidemia: Continue statins. #7 depression: Continue bupropion. #8 DVT prophylaxis: Subcu Lovenox. This note was generated with [employer] dictation software. It may contain incorrect words, spelling, and punctuation that were not noted in checking the note before signing. OBSV E&M: [id number] Initial observation care L2
[2020-08-24] MEDS: 0.9% Saline Lock 10 ML Syringe IV (02:14)
[2020-08-24] MEDS: Acetaminophen 325 MG Tablet 650 MG PO (02:35)
[2020-08-24] MEDS: Cephalexin 500 MG Capsule PO ×4 (07:03→22:54)
[2020-08-24] MEDS: Levothyroxine 125 MCG Tablet PO (07:03)
[2020-08-24] MEDS: Insulin Lispro 100 UNIT/ML INSULN.PEN SC ×4 (07:06→22:52)
[2020-08-24 07:11] LABS: Bedside Glucose 168 mg/dL (70-110)
[2020-08-24] MEDS: Losartan Potassium 100 MG Tablet PO (09:19)
[2020-08-24] MEDS: Calcium Carbonate 500 MG Tablet PO ×2 (09:19→22:48)
[2020-08-24] MEDS: Pioglitazone Hydrochloride 30 MG Tablet PO (09:20)
[2020-08-24] MEDS: metFORMIN HCl 1,000 MG Tablet 1000 MG PO ×2 (09:20→18:03)
[2020-08-24] MEDS: Bisacodyl 5 MG Tablet PO ×2 (09:20→22:50)
[2020-08-24] MEDS: Aspirin E.C. 81 MG Tablet PO (09:20)
[2020-08-24] MEDS: Enoxaparin 40 MG/0.4 ML Syringe SC (09:21)
[2020-08-24] MEDS: Venlafaxine XR 150 MG Capsule PO (09:21)
[2020-08-24] MEDS: hydroCHLOROthiazide 25 MG Tablet PO (09:22)
[2020-08-24] MEDS: buPROPion 75 MG Tablet 150 MG PO (09:24)
[2020-08-24] MEDS: Carbidopa/Levodopa 25/100 Tablet PO ×3 (12:03→22:49)
[2020-08-24 12:10] LABS: Bedside Glucose 222 mg/dL (70-110)
--- NOTE | 2020-08-24 12:33 | PCM.HOSP.N ---
Hospitalist Note He was seen and examined today, she voices no complaints to this examiner. Patient was placed into outpatient status due to frequent falls at her assisted living facility, she will need at least temporary placement in a long term facility. volunteer services manager will most likely see the patient tomorrow.
[2020-08-24 18:11] LABS: Bedside Glucose 186 mg/dL (70-110)
[2020-08-24 22:20] LABS: Bedside Glucose 178 mg/dL (70-110)
[2020-08-24] MEDS: Donepezil HCl 10 MG Tablet PO (22:49)
[2020-08-24] MEDS: Atorvastatin Calcium 40 MG Tablet PO (22:50)
[2020-08-25] VITALS (10 sets, daily range): BP systolic 147–190; BP diastolic 59–82; PULSE 68–88; RESP 16–18; TEMP 36.4–36.7; O2SAT 91–100
[2020-08-25] MEDS: 0.9% Saline Lock 10 ML Syringe IV ×2 (02:15→02:44)
[2020-08-25] MEDS: hydrALAZINE 20 MG/ML Vial 10 MG IV (02:43)
[2020-08-25] MEDS: Carbidopa/Levodopa 25/100 Tablet PO ×4 (06:42→22:12)
[2020-08-25] MEDS: Cephalexin 500 MG Capsule PO ×3 (06:42→16:52)
[2020-08-25] MEDS: Levothyroxine 125 MCG Tablet PO (06:42)
[2020-08-25 06:51] LABS: Bedside Glucose 88 mg/dL (70-110)
[2020-08-25] MEDS: Acetaminophen 325 MG Tablet 650 MG PO (08:55)
[2020-08-25] MEDS: Aspirin E.C. 81 MG Tablet PO (08:56)
[2020-08-25] MEDS: metFORMIN HCl 1,000 MG Tablet 1000 MG PO ×2 (08:57→16:51)
[2020-08-25] MEDS: Pioglitazone Hydrochloride 30 MG Tablet PO (08:58)
[2020-08-25] MEDS: hydroCHLOROthiazide 25 MG Tablet PO (08:59)
[2020-08-25] MEDS: Enoxaparin 40 MG/0.4 ML Syringe SC (08:59)
[2020-08-25] MEDS: Venlafaxine XR 150 MG Capsule PO (08:59)
[2020-08-25] MEDS: Bisacodyl 5 MG Tablet PO ×2 (08:59→22:12)
[2020-08-25] MEDS: Losartan Potassium 100 MG Tablet PO (09:00)
[2020-08-25] MEDS: Calcium Carbonate 500 MG Tablet PO ×2 (09:00→22:11)
[2020-08-25] MEDS: buPROPion 75 MG Tablet 150 MG PO (09:01)
[2020-08-25] MEDS: Insulin Lispro 100 UNIT/ML INSULN.PEN SC ×2 (11:37→22:14)
[2020-08-25 11:50] LABS: Bedside Glucose 253 mg/dL (70-110)
--- NOTE | 2020-08-25 12:25 | CASEMGMT ---
Social Work Met with patient in room. Introduced self and web content & social media manager role. Patient agreeable to speak with this web content & social media manager. Patient reports to currently live in an assisted living at [facility]. Patient states prior level of functioning was I could do everything. Patient current states I am weak. Patient interested in usp stay for strengthening and returning to [facility] assisted living after. Patient requesting [facility] as first choice and [facility] as second choice. Patient aware that insurance will need to approve SNF. Therapy is recommending continued skilled services for patient. Social work to follow up on Thursday. Social Work to continue to follow. Sabi STANLEY, NITIN
--- NOTE | 2020-08-25 12:40 | CASEMGMT ---
Intro role of CM to patient and [facility] form explained re: Observation status for treatment of physical debility, functional decline, and frequent falls. Explained hospitalization will be paid per insurance policy for Outpatient billing and condition will continue to be evaluated for Inpt necessity. Also let pt know that [facility] sends paper in the billing packet with their phone number if questions arise. Discussed Pharmacy section of [facility] form and self administered medication guideline. Pt verbalizes understanding and does not have further questions. Form signed, copy made and placed in chart, and original given to pt. Stew QUEZADAN RN CM
--- NOTE | 2020-08-25 15:40 | PN_ITS ---
Patient Problems: Active and Suspected Problems (Last Reviewed 08/21/20 @ 15:10 by Arleen Davila) Multiple falls (Acute) Debility (Acute) Contusion of pelvis (Acute) Subjective: Patient was seen and examined today, she has a yeast infection under her breasts and nursing requested medication for this, I have written for Mycostatin cream for the patient. Patient has no complaints of fever, chills, or shortness of breath. - Physical Exam Vitals/I&O's: Vital Signs Temp Pulse Resp BP Pulse Ox 97.9 F 80 18 159/79 H 95 08/25/20 08:10 08/25/20 13:57 08/25/20 08:10 08/25/20 08:10 08/25/20 08:10 Oxygen Delivery Method Room Air Weight: 102.4 kg Body Mass Index (BMI) 39.3 Finger Stick Blood Glucose 176 Intake and Output for Last 24 Hours 08/23/20 08/24/20 08/25/20 23:59 23:59 23:59 Intake Total 500 / 500 700 / 700 Output Total 1400 / 1400 700 / 700 Balance -900 / -900 0 / 0 General: Alert, Oriented x3, Cooperative, No apparent distress, Well developed HEENT: Atraumatic, PERRLA, EOMI, Normocephalic Oral: Moist Mucosa Neck: Supple, No JVD, Trachea Midline, Thyroid Normal Size and Texture Lungs: Clear to auscultation, Normal air movement Cardiovascular: Regular rate, Regular Rhythm, Normal S1, Normal S2, No murmurs, PMI Normal, No rub noted, No Gallop Abdomen: Bowel Sounds Present, Soft, Non Tender, Non-Distended, No hernias noted Extremities: No clubbing, No cyanosis, No edema, Capillary Refill Less than 3 Seconds Skin: No breakdown, Rash Present - There are reddened areas under the patient's breast bilaterally Musculoskeletal: No Tenderness to Palpation of Joints or Extremities Neurological: Cranial nerves II-XII grossly intact, Neuro grossly intact, Sensory exam intact to light touch and pain, Coordination normal Psych/Mental Status: Normal Affect, Appropriate, Alert and oriented to time, place, person, mood and affect Microbiology Past 72 Hours 08/24/20 00:45 Mucosa - Nose SARS-CoV-2 Antigen (Rapid) - Final Laboratory Results 08/24/20 18:01: POC Glucose 186 H 08/24/20 22:07: POC Glucose 178 H 08/25/20 06:39: POC Glucose 88 08/25/20 11:35: POC Glucose 253 H Current Medications Acetaminophen (Acetaminophen 325 Mg Tablet) 650 mg PO Q6H PRN PRN PRN Reason: Pain Score 1-10/Temp > 100.7 F Last Admin: 08/25/20 08:55 Dose: 650 mg Documented by: Aspirin (Aspirin E.C. 81 Mg Tablet) 81 mg PO [facility]ILY[facility] Last Admin: 08/25/20 08:56 Dose: 81 mg Documented by: Atorvastatin Calcium (Atorvastatin Calcium 40 Mg Tablet) 40 mg PO QHS [facility] Last Admin: 08/24/20 22:50 Dose: 40 mg Documented by: Bisacodyl (Bisacodyl 5 Mg Tablet) 5 mg PO BID [facility] Last Admin: 08/25/20 08:59 Dose: 5 mg Documented by: Bupropion HCl (Bupropion 75 Mg Tablet) 150 mg PO DAILY [facility] Last Admin: 08/25/20 09:01 Dose: 150 mg Documented by: Calcium Carbonate (Calcium Carbonate 500 Mg Tablet) 500 mg PO BID [facility] Last Admin: 08/25/20 09:00 Dose: 500 mg Documented by: Carbidopa/Levodopa (Carbidopa/Levodopa 25/100 Tablet) 2 tablet PO 0700,1100,1600,2200 [facility] Last Admin: 08/25/20 11:36 Dose: 2 tablet Documented by: Cephalexin (Cephalexin 500 Mg Capsule) 500 mg PO Q6 [facility] Last Admin: 08/25/20 11:37 Dose: 500 mg Documented by: Donepezil HCl (Donepezil Hcl 10 Mg Tablet) 10 mg PO QHS [facility] Last Admin: 08/24/20 22:49 Dose: 10 mg Documented by: Enoxaparin Sodium (Enoxaparin 40 Mg/0.4 Ml Syringe) 40 mg SC DAILY [facility] Last Admin: 08/25/20 08:59 Dose: 40 mg Documented by: Hydralazine HCl (Hydralazine 20 Mg/Ml Vial) 10 mg IV Q6H PRN PRN PRN Reason: for SBP>160 Last Admin: 08/25/20 02:43 Dose: 10 mg Documented by: Hydrochlorothiazide (Hydrochlorothiazide 25 Mg Tablet) 25 mg PO DAILY [facility] Last Admin: 08/25/20 08:59 Dose: 25 mg Documented by: Insulin Glargine (Insulin Glargine 100 Units/Ml Pen) 20 units SC QHS [facility] Last Admin: 08/24/20 22:51 Dose: 20 u Documented by: Insulin Human Lispro (Insulin Lispro 100 Unit/Ml Insuln.Pen) 0 unit SC ACHS [facility]; Protocol Last Admin: 08/25/20 11:37 Dose: 2 u Documented by: Levothyroxine Sodium (Levothyroxine 125 Mcg Tablet) 125 mcg PO DAILY@0600 [facility] Last Admin: 08/25/20 06:42 Dose: 125 mcg Documented by: Losartan Potassium (Losartan Potassium 100 Mg Tablet) 100 mg PO DAILY [facility] Last Admin: 08/25/20 09:00 Dose: 100 mg Documented by: Metformin HCl (Metformin Hcl 1,000 Mg Tablet) 1,000 mg PO BIDCM [facility] Last Admin: 08/25/20 08:57 Dose: 1,000 mg Documented by: Nystatin (Nystatin Ointment) 1 applic TOPICAL BID [facility]; Protocol Olopatadine HCl (Olopatadine Hcl 1 Drop Bottle) 1 drop EACH EYE BREAKFAST [facility] Last Admin: 08/25/20 12:01 Dose: Not Given Documented by: Ondansetron HCl (Ondansetron 4 Mg/2 Ml Vial) 4 mg IV Q8H PRN PRN PRN Reason: NAUSEA/VOMITING Pioglitazone HCl (Pioglitazone Hydrochloride 30 Mg Tablet) 30 mg PO DAILY [facility] Last Admin: 08/25/20 08:58 Dose: 30 mg Documented by: Senna/Docusate Sodium (Senna/Docusate Sodium 1 Tablet) 2 tablet PO BID PRN PRN PRN Reason: Constipation Sodium Chloride (0.9% Saline Lock 10 Ml Syringe) 10 - 40 ml IV UD PRN PRN Reason: SALINE FLUSH Last Admin: 08/25/20 02:44 Dose: 10 ml Documented by: Venlafaxine HCl (Venlafaxine Xr 150 Mg Capsule) 150 mg PO DAILY [facility] Last Admin: 08/25/20 08:59 Dose: 150 mg Documented by: Zolpidem Tartrate (Zolpidem Tartrate 5 Mg Tablet) 5 mg PO QHS PRN PRN PRN Reason: INSOMNIA Medical Necessity - Tobacco Use Smoking Status: Never smoker Assessment/Plan All Active Problems (Last Reviewed 08/21/20 @ 15:10 by Arleen Davila) Multiple falls (Acute) Debility (Acute) Contusion of pelvis (Acute) #1 generalized debility-secondary to Parkinson's disease and multiple medical problems, patient will need at least short-term alf, this will not be able to be set up until early in the week due to the holidays. #2 type 2 diabetes-blood sugars will be monitored, sliding scale insulin will be administered as needed #3 Parkinson's disease-PT and OT are seeing patient #4 contusion of pelvis #5 atherosclerotic heart disease #6 essential hypertension #7 hyperlipidemia #8 yeast infection under breasts-Mycostatin cream was ordered OBSV E&M: [id number] Subsequent observation care L3
[2020-08-25 17:00] LABS: Bedside Glucose 142 mg/dL (70-110)
[2020-08-25] MEDS: Donepezil HCl 10 MG Tablet PO (22:12)
[2020-08-25] MEDS: Atorvastatin Calcium 40 MG Tablet PO (22:12)
[2020-08-25] MEDS: Nystatin Ointment 1 APPLIC TOPICAL (22:16)
[2020-08-25 22:56] LABS: Bedside Glucose 231 mg/dL (70-110)
[2020-08-26] MEDS: Cephalexin 500 MG Capsule PO ×4 (00:10→17:58)
[2020-08-26 04:23] VITALS: BP 159/84; PULSE 72; RESP 18; TEMP 36.4; O2SAT 94
[2020-08-26] MEDS: Levothyroxine 125 MCG Tablet PO (06:27)
[2020-08-26] MEDS: Carbidopa/Levodopa 25/100 Tablet PO ×4 (06:27→21:34)
[2020-08-26 06:40] LABS: Bedside Glucose 116 mg/dL (70-110)
[2020-08-26 06:58] VITALS: O2SAT 89
[2020-08-26] MEDS: Aspirin E.C. 81 MG Tablet PO (09:19)
[2020-08-26] MEDS: metFORMIN HCl 1,000 MG Tablet 1000 MG PO ×2 (09:19→17:58)
[2020-08-26] MEDS: Pioglitazone Hydrochloride 30 MG Tablet PO (09:20)
[2020-08-26] MEDS: Nystatin Ointment 1 APPLIC TOPICAL ×2 (09:21→21:39)
[2020-08-26] MEDS: hydroCHLOROthiazide 25 MG Tablet PO (09:21)
[2020-08-26] MEDS: buPROPion 75 MG Tablet 150 MG PO (09:21)
[2020-08-26] MEDS: Venlafaxine XR 150 MG Capsule PO (09:22)
[2020-08-26] MEDS: Enoxaparin 40 MG/0.4 ML Syringe SC (09:22)
[2020-08-26] MEDS: Bisacodyl 5 MG Tablet PO ×2 (09:22→21:34)
[2020-08-26] MEDS: Calcium Carbonate 500 MG Tablet PO ×2 (09:22→21:34)
[2020-08-26] MEDS: Losartan Potassium 100 MG Tablet PO (09:22)
[2020-08-26] MEDS: Acetaminophen 325 MG Tablet 650 MG PO (09:24)
[2020-08-26 10:20] VITALS: BP 156/69; PULSE 71; RESP 18; TEMP 36.6; O2SAT 100
[2020-08-26 11:40] LABS: Bedside Glucose 154 mg/dL (70-110)
[2020-08-26] MEDS: Ondansetron 4 MG/2 ML Vial IV (12:58)
--- NOTE | 2020-08-26 13:01 | NURSING ---
pt up in chair, nauseated, belching, assisted back to bed w/2 assists+walker-medicated w/ zofran, given a warm blanket and pt fell asleep quickly-bed exit on, call light and phone in reach
[2020-08-26 13:25] VITALS: PULSE 88
--- NOTE | 2020-08-26 15:21 | PN_ITS ---
Patient Problems: Active and Suspected Problems (Last Reviewed 08/21/20 @ 15:10 by Arleen Davila) Multiple falls (Acute) Debility (Acute) Contusion of pelvis (Acute) Subjective: Patient was seen and examined today, she has no complaints of any chills, fever, shortness of breath, or chest discomfort. Objective: General: Alert, Oriented x3, Cooperative, No apparent distress, Well developed HEENT: Atraumatic, PERRLA, EOMI, Normocephalic Oral: Moist Mucosa Neck: Supple, No JVD, Trachea Midline, Thyroid Normal Size and Texture Lungs: Clear to auscultation, Normal air movement Cardiovascular: Regular rate, Regular Rhythm, Normal S1, Normal S2, No murmurs, PMI Normal, No rub noted, No Gallop Abdomen: Bowel Sounds Present, Soft, Non Tender, Non-Distended, No hernias noted Extremities: No clubbing, No cyanosis, No edema, Capillary Refill Less than 3 Seconds Skin: No breakdown, Rash Present - There are reddened areas under the patient's breast bilaterally Musculoskeletal: No Tenderness to Palpation of Joints or Extremities Neurological: Cranial nerves II-XII grossly intact, Neuro grossly intact, Sensory exam intact to light touch and pain, Coordination normal Psych/Mental Status: Normal Affect, Appropriate, Alert and oriented to time, place, person, mood and affect - Physical Exam Vitals/I&O's: Vital Signs Temp Pulse Resp BP Pulse Ox 97.9 F 88 18 156/69 H 100 08/26/20 10:20 08/26/20 13:25 08/26/20 10:20 08/26/20 10:20 08/26/20 10:20 Oxygen Delivery Method Room Air Weight: 102.4 kg Body Mass Index (BMI) 39.3 Finger Stick Blood Glucose 176 Intake and Output for Last 24 Hours 08/24/20 08/25/20 08/26/20 23:59 23:59 23:59 Intake Total 500 / 500 1300 / 1300 900 / 900 Output Total 1400 / 1400 1300 / 1300 1000 / 1000 Balance -900 / -900 0 / 0 -100 / -100 Microbiology Past 72 Hours 08/24/20 00:45 Mucosa - Nose SARS-CoV-2 Antigen (Rapid) - Final Laboratory Results 08/25/20 16:48: POC Glucose 142 H 08/25/20 22:09: POC Glucose 231 H 08/26/20 06:26: POC Glucose 116 H 08/26/20 11:33: POC Glucose 154 H Current Medications Acetaminophen (Acetaminophen 325 Mg Tablet) 650 mg PO Q6H PRN PRN PRN Reason: Pain Score 1-10/Temp > 100.7 F Last Admin: 08/26/20 09:24 Dose: 650 mg Documented by: Aspirin (A[facility]in E.C. 81 Mg Tablet) [facility] Last Admin: 08/26/20 09:19 Dose: 81 mg Documented by: Atorvastatin Calcium (Atorvastatin Calcium 40 Mg Tablet) 40 mg PO QHS [facility] Last Admin: 08/25/20 22:12 Dose: 40 mg Documented by: Bisacodyl (Bisacodyl 5 Mg Tablet) 5 mg PO BID [facility] Last Admin: 08/26/20 09:22 Dose: 5 mg Documented by: Bupropion HCl (Bupropion 75 Mg Tablet) 150 mg PO DAILY [facility] Last Admin: 08/26/20 09:21 Dose: 150 mg Documented by: Calcium Carbonate (Calcium Carbonate 500 Mg Tablet) 500 mg PO BID [facility] Last Admin: 08/26/20 09:22 Dose: 500 mg Documented by: Carbidopa/Levodopa (Carbidopa/Levodopa 25/100 Tablet) 2 tablet PO 0700,1100,1600,2200 [facility] Last Admin: 08/26/20 09:23 Dose: 2 tablet Documented by: Cephalexin (Cephalexin 500 Mg Capsule) 500 mg PO Q6 [facility] Last Admin: 08/26/20 12:30 Dose: 500 mg Documented by: Donepezil HCl (Donepezil Hcl 10 Mg Tablet) 10 mg PO QHS [facility] Last Admin: 08/25/20 22:12 Dose: 10 mg Documented by: Enoxaparin Sodium (Enoxaparin 40 Mg/0.4 Ml Syringe) 40 mg SC DAILY [facility] Last Admin: 08/26/20 09:22 Dose: 40 mg Documented by: Hydralazine HCl (Hydralazine 20 Mg/Ml Vial) 10 mg IV Q6H PRN PRN PRN Reason: for SBP>160 Last Admin: 08/25/20 02:43 Dose: 10 mg Documented by: Hydrochlorothiazide (Hydrochlorothiazide 25 Mg Tablet) 25 mg PO DAILY [facility] Last Admin: 08/26/20 09:21 Dose: 25 mg Documented by: Insulin Glargine (Insulin Glargine 100 Units/Ml Pen) 20 units SC QHS [facility] Last Admin: 08/25/20 22:13 Dose: 20 u Documented by: Insulin Human Lispro (Insulin Lispro 100 Unit/Ml Insuln.Pen) 0 unit SC ACHS [facility]; Protocol Last Admin: 08/26/20 12:30 Dose: Not Given Documented by: Levothyroxine Sodium (Levothyroxine 125 Mcg Tablet) 125 mcg PO DAILY@0600 [facility] Last Admin: 08/26/20 06:27 Dose: 125 mcg Documented by: Losartan Potassium (Losartan Potassium 100 Mg Tablet) 100 mg PO DAILY [facility] Last Admin: 08/26/20 09:22 Dose: 100 mg Documented by: Metformin HCl (Metformin Hcl 1,000 Mg Tablet) [facility] Last Admin: 08/26/20 09:19 Dose: 1,000 mg Documented by: Nystatin (Nystatin Ointment) 1 applic TOPICAL BID [facility]; Protocol Last Admin: 08/26/20 09:21 Dose: 1 applicatio Documented by: Olopatadine HCl (Olopatadine Hcl 1 Drop Bottle) 1 drop EACH EYE BREAKFAST [facility] Last Admin: 08/26/20 09:20 Dose: Not Given Documented by: Ondansetron HCl (Ondansetron 4 Mg/2 Ml Vial) 4 mg IV Q8H PRN PRN PRN Reason: NAUSEA/VOMITING Last Admin: 08/26/20 12:58 Dose: 4 mg Documented by: Pioglitazone HCl (Pioglitazone Hydrochloride 30 Mg Tablet) 30 mg PO DAILY [facility] Last Admin: 08/26/20 09:20 Dose: 30 mg Documented by: Senna/Docusate Sodium (Senna/Docusate Sodium 1 Tablet) 2 tablet PO BID PRN PRN PRN Reason: Constipation Sodium Chloride (0.9% Saline Lock 10 Ml Syringe) 10 - 40 ml IV UD PRN PRN Reason: SALINE FLUSH Last Admin: 08/25/20 02:44 Dose: 10 ml Documented by: Venlafaxine HCl (Venlafaxine Xr 150 Mg Capsule) 150 mg PO DAILY [facility] Last Admin: 08/26/20 09:22 Dose: 150 mg Documented by: Zolpidem Tartrate (Zolpidem Tartrate 5 Mg Tablet) 5 mg PO QHS PRN PRN PRN Reason: INSOMNIA Medical Necessity - Tobacco Use Smoking Status: Never smoker Assessment/Plan All Active Problems (Last Reviewed 08/21/20 @ 15:10 by Arleen Davila) Multiple falls (Acute) Debility (Acute) Contusion of pelvis (Acute) #1 generalized debility-secondary to Parkinson's disease and multiple medical problems, patient will need at least short-term residential, this will not be able to be set up until tomorrow. #2 type 2 diabetes-blood sugars will be monitored, sliding scale insulin will be administered as needed #3 Parkinson's disease-PT and OT are seeing patient #4 contusion of pelvis #5 atherosclerotic heart disease #6 essential hypertension #7 hyperlipidemia #8 yeast infection under breasts-Mycostatin cream is being given OBSV E&M: 55343 Subsequent observation care L3
[2020-08-26 16:20] VITALS: BP 154/77; PULSE 88; RESP 18; TEMP 36.7; O2SAT 95
[2020-08-26 16:35] LABS: Bedside Glucose 112 mg/dL (70-110)
[2020-08-26] MEDS: Atorvastatin Calcium 40 MG Tablet PO (21:34)
[2020-08-26] MEDS: Donepezil HCl 10 MG Tablet PO (21:34)
[2020-08-26] MEDS: Insulin Lispro 100 UNIT/ML INSULN.PEN SC (21:37)
[2020-08-26 21:44] VITALS: BP 149/62; PULSE 78; RESP 18; TEMP 36.2; O2SAT 96
[2020-08-27] VITALS (7 sets, daily range): BP systolic 139–166; BP diastolic 56–76; PULSE 65–82; RESP 18; TEMP 36.4–36.6; O2SAT 95–97
[2020-08-27 00:06] LABS: Bedside Glucose 195 mg/dL (70-110)
[2020-08-27] MEDS: Cephalexin 500 MG Capsule PO ×5 (00:47→23:20)
[2020-08-27] MEDS: hydrALAZINE 20 MG/ML Vial 10 MG IV (04:18)
[2020-08-27] MEDS: 0.9% Saline Lock 10 ML Syringe IV (04:21)
[2020-08-27] MEDS: Levothyroxine 125 MCG Tablet PO (06:21)
[2020-08-27] MEDS: Carbidopa/Levodopa 25/100 Tablet PO ×4 (06:52→21:00)
[2020-08-27 06:56] LABS: Bedside Glucose 131 mg/dL (70-110)
[2020-08-27] MEDS: metFORMIN HCl 1,000 MG Tablet 1000 MG PO ×2 (08:32→16:44)
[2020-08-27] MEDS: Aspirin E.C. 81 MG Tablet PO (08:33)
--- NOTE | 2020-08-27 08:55 | CASEMGMT ---
[facility] not taking admissions at this time. SW called [facility], spoke w/Meghan, they can take pt, will have a bed tomorrow, and will start precert. NITIN Jackson
--- NOTE | 2020-08-27 09:32 | CASEMGMT ---
SW spoke w/pt, let her know that [facility] does not have any beds, SW let her know [facility] will have a bed tomorrow and they will start precert. Pt states understanding and is in agreement with plan. SW also let pt know that pt's insurance will not cover her past day 20 in [facility] as her secondary insurance is Medicaid and [facility] does not take Medicaid(for the copay). Pt states understanding and she does not anticipate needing longer than 20 days. Plan: [facility]CU, pending precert and bed availability, it is anticipated she will be able to be discharged to [facility] tomorrow. NITIN Jackson
[2020-08-27] MEDS: hydroCHLOROthiazide 25 MG Tablet PO (10:44)
[2020-08-27] MEDS: Bisacodyl 5 MG Tablet PO ×2 (10:44→21:00)
[2020-08-27] MEDS: Venlafaxine XR 150 MG Capsule PO (10:45)
[2020-08-27] MEDS: Losartan Potassium 100 MG Tablet PO (10:45)
[2020-08-27] MEDS: Pioglitazone Hydrochloride 30 MG Tablet PO (10:45)
[2020-08-27] MEDS: Calcium Carbonate 500 MG Tablet PO ×2 (10:45→21:00)
[2020-08-27] MEDS: Nystatin Ointment 1 APPLIC TOPICAL ×2 (10:46→21:00)
[2020-08-27] MEDS: Enoxaparin 40 MG/0.4 ML Syringe SC (10:47)
[2020-08-27] MEDS: buPROPion 75 MG Tablet 150 MG PO (10:47)
[2020-08-27] MEDS: Insulin Lispro 100 UNIT/ML INSULN.PEN SC ×3 (11:11→22:01)
[2020-08-27 11:20] LABS: Bedside Glucose 186 mg/dL (70-110)
--- NOTE | 2020-08-27 15:00 | CASEMGMT ---
Addendum entered by Belinda Arellano 08/27/20 15:04: Green sheet in the chart in the event pt is discharged after this SW leaves for the day. NITIN Jackson Original Note: SW spoke w/Meghan in [facility], she states that they have precert and pt can come today. SW let physician know, and let pt know as well. Pt agreeable to discharge to [facility] today. Also, pt gave permission to call her sister. SW called pt's sister Hortencia Beltre, let her know pt can go to [facility]CU today. No further needs, pt to [facility]CU today. NITIN Jackson
--- NOTE | 2020-08-27 15:45 | PCM.PROGNOTE ---
Patient Problems: Active and Suspected Problems (Last Reviewed 08/21/20 @ 15:10 by Arleen Davila) Multiple falls (Acute) Debility (Acute) Contusion of pelvis (Acute) Subjective: Patient was seen and examined today, she does not complain of any fever, chills, or cough. We are awaiting placement for her in a senior care facility. Objective: General: Alert, Oriented x3, Cooperative, No apparent distress, Well developed HEENT: Atraumatic, PERRLA, EOMI, Normocephalic Oral: Moist Mucosa Neck: Supple, No JVD, Trachea Midline, Thyroid Normal Size and Texture Lungs: Clear to auscultation, Normal air movement Cardiovascular: Regular rate, Regular Rhythm, Normal S1, Normal S2, No murmurs, PMI Normal, No rub noted, No Gallop Abdomen: Bowel Sounds Present, Soft, Non Tender, Non-Distended, No hernias noted Extremities: No clubbing, No cyanosis, No edema, Capillary Refill Less than 3 Seconds Skin: No breakdown, Rash Present - There are reddened areas under the patient's breast bilaterally Musculoskeletal: No Tenderness to Palpation of Joints or Extremities Neurological: Cranial nerves II-XII grossly intact, Neuro grossly intact, Sensory exam intact to light touch and pain, Coordination normal Psych/Mental Status: Normal Affect, Appropriate, Alert and oriented to time, place, person, mood and affect - Physical Exam Vitals/I&O's: Vital Signs Temp Pulse Resp BP Pulse Ox 97.7 F L 82 18 148/76 H 97 08/27/20 15:24 08/27/20 15:24 08/27/20 15:24 08/27/20 15:24 08/27/20 15:24 Oxygen Delivery Method Room Air Weight: 102.4 kg Body Mass Index (BMI) 39.3 Finger Stick Blood Glucose 176 Intake and Output for Last 24 Hours 08/25/20 08/26/20 08/27/20 23:59 23:59 23:59 Intake Total 1300 / 1300 1800 / 1800 450 / 450 Output Total 1300 / 1300 1000 / 1000 Balance 0 / 0 800 / 800 450 / 450 Laboratory Results 08/26/20 16:30: POC Glucose 112 H 08/26/20 21:31: POC Glucose 195 H 08/27/20 06:51: POC Glucose 131 H 08/27/20 11:09: POC Glucose 186 H Current Medications Acetaminophen (Acetaminophen 325 Mg Tablet) 650 mg PO Q6H PRN PRN PRN Reason: Pain Score 1-10/Temp > 100.7 F Last Admin: 08/26/20 09:24 Dose: 650 mg Documented by: Aspirin (Aspirin E.C. 81 Mg Tablet) [facility] Last Admin: 08/27/20 08:33 Dose: 81 mg Documented by: Atorvastatin Calcium (Atorvastatin Calcium 40 Mg Tablet) 40 mg PO QHS [facility] Last Admin: 08/26/20 21:34 Dose: 40 mg Documented by: Bisacodyl (Bisacodyl 5 Mg Tablet) 5 mg PO BID [facility] Last Admin: 08/27/20 10:44 Dose: 5 mg Documented by: Bupropion HCl (Bupropion 75 Mg Tablet) 150 mg PO DAILY [facility] Last Admin: 08/27/20 10:47 Dose: 150 mg Documented by: Calcium Carbonate (Calcium Carbonate 500 Mg Tablet) 500 mg PO BID [facility] Last Admin: 08/27/20 10:45 Dose: 500 mg Documented by: Carbidopa/Levodopa (Carbidopa/Levodopa 25/100 Tablet) 2 tablet PO 0700,1100,1600,2200 [facility] Last Admin: 08/27/20 11:10 Dose: 2 tablet Documented by: Cephalexin (Cephalexin 500 Mg Capsule) 500 mg PO Q6 [facility] Last Admin: 08/27/20 11:51 Dose: 500 mg Documented by: Donepezil HCl (Donepezil Hcl 10 Mg Tablet) 10 mg PO QHS [facility] Last Admin: 08/26/20 21:34 Dose: 10 mg Documented by: Enoxaparin Sodium (Enoxaparin 40 Mg/0.4 Ml Syringe) 40 mg SC DAILY [facility] Last Admin: 08/27/20 10:47 Dose: 40 mg Documented by: Hydralazine HCl (Hydralazine 20 Mg/Ml Vial) 10 mg IV Q6H PRN PRN PRN Reason: for SBP>160 Last Admin: 08/27/20 04:18 Dose: 10 mg Documented by: Hydrochlorothiazide (Hydrochlorothiazide 25 Mg Tablet) 25 mg PO DAILY [facility] Last Admin: 08/27/20 10:44 Dose: 25 mg Documented by: Insulin Glargine (Insulin Glargine 100 Units/Ml Pen) [facility] Last Admin: 08/26/20 21:37 Dose: 20 u Documented by: Insulin Human Lispro (Insulin Lispro 100 Unit/Ml Insuln.Pen) 0 unit SC ACHS [facility]; Protocol Last Admin: 08/27/20 11:11 Dose: 1 u Documented by: Levothyroxine Sodium (Levothyroxine 125 Mcg Tablet) 125 mcg PO DAILY@0600 [facility] Last Admin: 08/27/20 06:21 Dose: 125 mcg Documented by: Losartan Potassium (Losartan Potassium 100 Mg Tablet) 100 mg PO DAILY [facility] Last Admin: 08/27/20 10:45 Dose: 100 mg Documented by: Metformin HCl (Metformin Hcl 1,000 Mg Tablet) [facility] Last Admin: 08/27/20 08:32 Dose: 1,000 mg Documented by: Nystatin (Nystatin Ointment) 1 applic TOPICAL BID [facility]; Protocol Last Admin: 08/27/20 10:46 Dose: 1 applicatio Documented by: Olopatadine HCl (Olopatadine Hcl 1 Drop Bottle) 1 drop EACH EYE BREAKFAST [facility] Last Admin: 08/27/20 08:33 Dose: Not Given Documented by: Ondansetron HCl (Ondansetron 4 Mg/2 Ml Vial) 4 mg IV Q8H PRN PRN PRN Reason: NAUSEA/VOMITING Last Admin: 08/26/20 12:58 Dose: 4 mg Documented by: Pioglitazone HCl (Pioglitazone Hydrochloride 30 Mg Tablet) 30 mg PO DAILY [facility] Last Admin: 08/27/20 10:45 Dose: 30 mg Documented by: Senna/Docusate Sodium (Senna/Docusate Sodium 1 Tablet) 2 tablet PO BID PRN PRN PRN Reason: Constipation Sodium Chloride (0.9% Saline Lock 10 Ml Syringe) 10 - 40 ml IV UD PRN PRN Reason: SALINE FLUSH Last Admin: 08/27/20 04:21 Dose: 10 ml Documented by: Venlafaxine HCl (Venlafaxine Xr 150 Mg Capsule) 150 mg PO DAILY [facility] Last Admin: 08/27/20 10:45 Dose: 150 mg Documented by: Zolpidem Tartrate (Zolpidem Tartrate 5 Mg Tablet) 5 mg PO QHS PRN PRN PRN Reason: INSOMNIA Medical Necessity - Tobacco Use Smoking Status: Never smoker Assessment/Plan All Active Problems (Last Reviewed 08/21/20 @ 15:10 by Arleen Davila) Multiple falls (Acute) Debility (Acute) Contusion of pelvis (Acute) #1 generalized debility-secondary to Parkinson's disease and multiple medical problems, patient will need at least short-term senior care, approval is pending for her to go to an extended care facility at this time #2 type 2 diabetes-blood sugars will be monitored, sliding scale insulin will be administered as needed #3 Parkinson's disease-PT and OT are seeing patient #4 contusion of pelvis #5 atherosclerotic heart disease #6 essential hypertension #7 hyperlipidemia #8 yeast infection under breasts-Mycostatin cream is being given OBSV E&M: 90644 Subsequent observation care L3
[2020-08-27 16:51] LABS: Bedside Glucose 156 mg/dL (70-110)
[2020-08-27] MEDS: Donepezil HCl 10 MG Tablet PO (21:00)
[2020-08-27] MEDS: Atorvastatin Calcium 40 MG Tablet PO (21:00)
[2020-08-27 22:05] LABS: Bedside Glucose 169 mg/dL (70-110)
[2020-08-28 02:00] VITALS: BP 132/69; PULSE 98; RESP 16; TEMP 36.4; O2SAT 98
[2020-08-28] MEDS: Acetaminophen 325 MG Tablet 650 MG PO ×2 (02:03→08:36)
[2020-08-28] MEDS: Levothyroxine 125 MCG Tablet PO (06:34)
[2020-08-28] MEDS: Cephalexin 500 MG Capsule PO ×2 (06:34→11:29)
[2020-08-28] MEDS: Carbidopa/Levodopa 25/100 Tablet PO ×2 (06:34→11:16)
[2020-08-28 06:41] LABS: Bedside Glucose 102 mg/dL (70-110)
[2020-08-28] MEDS: metFORMIN HCl 1,000 MG Tablet 1000 MG PO (08:31)
[2020-08-28] MEDS: Aspirin E.C. 81 MG Tablet PO (08:32)
--- NOTE | 2020-08-28 08:34 | PCM.TXEXTCAR ---
- Diet 08/24/20 01:43 Diet: Cardiac - Heart Healthy Food consistency:: Regular Liquid Consistency:: Regular/Thin Diet: Consistent Carb - Calorie Controlled Food consistency:: Regular Liquid Consistency:: Regular/Thin How many daily calories?: 1800 calorie - Routine Orders/Code Status Routine Lab Work: - - fingerstick blood sugars ACQHS: coverage with Humalog SQ per protocol- 200-250: 5 units, 251-300: 8 units, 301-350: 12 units - Wound(s) L elbow Wound Type: sutures from previous fall - Therapies Weight Bearing: Full weight bearing Physical Therapy: Eval and Treat Occupational Therapy: Eval and Treat - Problem/Diagnosis (1) Multiple falls Status: Acute (2) Type 2 diabetes mellitus Status: Chronic (3) Essential hypertension Status: Chronic (4) Atherosclerotic heart disease of [place] coronary artery without angina pectoris Status: Chronic Comment: Mild (5) Parkinsons disease Status: Chronic (6) Hyperlipemia Status: Chronic (7) Cutaneous mycosis Status: Acute Comment: under breasts (8) Contusion of pelvis Status: Acute - Allergies/Procedures Done in Hospital Allergies/Adverse Reactions: Allergies Penicillins Allergy (Verified 08/22/20 18:54) Rash hydrocodone Adverse Reaction (Verified 08/22/20 18:54) hallucinations Procedures: None - Type of Care/Length of Stay Estimated LOS: Convalescent Care Less Than 30 days Type of Care Needed: Skilled Rehab Potential: Good Prognosis: Good - Additional Orders/Day of Discharge H&P will serve as current which was dated: 08/24/20 Day of Discharge: 08/28/20 - Follow Up Care Primary Care Physician: Messi Valencia MD [Primary Care Provider] -
[2020-08-28 08:55] VITALS: BP 156/65; PULSE 69; RESP 16; TEMP 36.6; O2SAT 95
--- NOTE | 2020-08-28 09:28 | CASEMGMT ---
Pt will be able to go to TCU today. There is now one case of COVID in TCU, SW let pt know. Pt agreeable still to go to TCU today. NITIN Jackson
--- NOTE | 2020-08-28 10:17 | CASEMGMT ---
ISAEL faxed discharge instructions to TCU, pt is ready today. ISAEL spoke w/pt, asked if she would like SW to call her sister again, she states it's not necessary. No further needs, pt to TCU today. NITIN Jackson
[2020-08-28] MEDS: buPROPion 75 MG Tablet 150 MG PO (10:47)
[2020-08-28] MEDS: Pioglitazone Hydrochloride 30 MG Tablet PO (10:47)
[2020-08-28] MEDS: Bisacodyl 5 MG Tablet PO (10:47)
[2020-08-28] MEDS: hydroCHLOROthiazide 25 MG Tablet PO (10:48)
[2020-08-28] MEDS: Venlafaxine XR 150 MG Capsule PO (10:48)
[2020-08-28] MEDS: Calcium Carbonate 500 MG Tablet PO (10:48)
[2020-08-28] MEDS: Losartan Potassium 100 MG Tablet PO (10:48)
[2020-08-28] MEDS: Enoxaparin 40 MG/0.4 ML Syringe SC (10:48)
[2020-08-28] MEDS: Nystatin Ointment 1 APPLIC TOPICAL (10:49)
[2020-08-28] MEDS: Insulin Lispro 100 UNIT/ML INSULN.PEN SC (11:16)
[2020-08-28 11:36] LABS: Bedside Glucose 160 mg/dL (70-110)
--- NOTE | 2020-08-28 12:12 | NURSING ---
report called to [facility]cu
--- NOTE | 2020-08-28 14:23 | PCM.DC.SUM ---
Discharge Date and Diagnosis - Problem List Patient Problems: Active and Suspected Problems (Last Reviewed 08/21/20 @ 15:10 by Arleen Davila) Multiple falls (Acute) Debility (Acute) Contusion of pelvis (Acute) Cutaneous mycosis (Acute) under breasts Date of Admission: 08/24/20 Date of Discharge: 08/28/20 - Primary Discharge Diagnosis Acute Problems: Active Problems (Last Reviewed 08/21/20 @ 15:10 by Arleen Davila) #1 generalized debility-secondary to Parkinson's disease and multiple medical problems #2 type 2 diabetes #3 Parkinson's disease #4 contusion of pelvis #5 atherosclerotic heart disease #6 essential hypertension #7 hyperlipidemia #8 yeast infection under breasts - Secondary Discharge Diagnosis Chronic Problems: Chronic Problems (Last Reviewed 08/21/20 @ 15:10 by Arleen Davila) Hyperlipemia (Chronic) Type 2 diabetes mellitus (Chronic) Mixed hyperlipidemia (Chronic) Essential hypertension (Chronic) Atherosclerotic heart disease of [place] coronary artery without angina pectoris (Chronic) Mild Parkinsons disease (Chronic) Basal cell carcinoma of right cheek (Chronic) Hospital Course and Treatment Operations: None Procedures: None Summary of Care Provided: The patient is a 74 year old F was seen in the emergency room at [facility] after sustaining a fall at her assisted living room, she had had a series of falls recently and this was her third visit to the emergency room for falls over 1 week.. Work-up in the emergency room included x-rays which did not reveal any acute fracture, it was felt that she had a pelvic contusion labs were unremarkable except for a slight elevation in her BUN and a glucose of 132. Urinalysis was unremarkable. It was felt that the patient could not return to assisted living and she was placed into observation status on [facility] 3 and seen by PT and OT. It was recommended that she go to a senior living facility for short-term rehab services. On 08/28/2020, patient was seen and examined: On examination she appeared her stated age, she does not appear to be in any distress. Vital signs as documented. Skin warm and dry and without overt rashes. Neck without JVD, thyroid appears normal, trachea is midline, neck is supple. Lungs clear, normal air movement was noted. Heart exam notable for regular rhythm, normal sounds and absence of murmurs, rubs or gallops. Abdomen unremarkable and without evidence of organomegaly, masses, or abdominal aortic enlargement, bowel sounds are present in all 4 quadrants, no abdominal tenderness was noted. Extremities nonedematous, no cyanosis was noted, no clubbing was noted. Neuro: Cranial nerves II through XII are grossly intact, no focal motor deficits were noted, sensation to light touch and pinprick is intact, motor exam 5/5 throughout. Psych: Patient is alert and oriented x3, she does not appear anxious or depressed, she does not appear agitated. Patient appeared to be in stable condition for discharge on 08/28/2020. Patient Problems: Active and Suspected Problems (Last Reviewed 08/21/20 @ 15:10 by Arleen Davila) Multiple falls (Acute) Debility (Acute) Contusion of pelvis (Acute) Cutaneous mycosis (Acute) under breasts - Physical Exam Vitals/I&O's: Vital Signs Temp Pulse Resp BP Pulse Ox 97.8 F 69 16 156/65 H 95 08/28/20 08:55 08/28/20 08:55 08/28/20 08:55 08/28/20 08:55 08/28/20 08:55 Oxygen Delivery Method Room Air Weight: 102.4 kg Body Mass Index (BMI) 39.3 Finger Stick Blood Glucose 176 Intake and Output for Last 24 Hours 08/26/20 08/27/20 08/28/20 23:59 23:59 23:59 Intake Total 1800 / 1800 950 / 950 Output Total 1000 / 1000 Balance 800 / 800 950 / 950 Laboratory Results 08/27/20 16:42: POC Glucose 156 H 08/27/20 22:00: POC Glucose 169 H 08/28/20 06:33: POC Glucose 102 08/28/20 11:12: POC Glucose 160 H Home Medications: Medications to take at Discharge Aspirin [Aspir 81] 81 mg PO DAILY 03/28/19 Atorvastatin Calcium [Lipitor] 40 mg PO QHS 03/28/19 Calcium Carbonate [Calcium] 600 mg PO BID 03/28/19 Levothyroxine [Synthroid] 125 mcg PO DAILY 03/28/19 Metformin HCl 1,000 mg PO BID 03/28/19 Pioglitazone [Actos] 30 mg PO DAILY 03/28/19 Venlafaxine HCl [Effexor Xr] 150 mg PO DAILY 03/28/19 Acetaminophen [Tylenol Tablet] 650 mg PO Q4H PRN PRN tab 04/01/19 bisacodyl 5 mg tablet,delayed release 10 mg PO BID PRN tab 12/15/19 insulin glargine 100 unit/mL subcutaneous solution 20 unit SC QHS ml 12/15/19 sennosides 8.6 mg-docusate sodium 50 mg tablet 2 tab-cap PO QHS tab 02/07/20 donepezil 10 mg tablet 10 mg PO QHS #30 tab 02/16/20 Ergocalciferol [Vitamin D] 50,000 unit PO SA 08/19/20 Olopatadine HCl [Patanol] 1 drp EACH EYE BREAKFAST 08/19/20 Valsartan/Hydrochlorothiazide [Valsartan-Hctz 320-25 mg Tab] 1 ea PO DAILY 08/19/20 bupropion HCl 75 mg tablet 150 mg PO DAILY tab 08/21/20 carbidopa 25 mg-levodopa 100 mg tablet 2 tab PO 4X/DAY #240 tab 08/21/20 Nystatin [Mycostatin] 1 applic TOPICAL BID tube 08/28/20 Primary Care Physician: Messi Valencia MD [Primary Care Provider] - Disposition: Nursing Home facility Minutes spent on discharge:: 30 Patient Condition:: Stable Medical Necessity - Tobacco Use Smoking Status: Never smoker Meaningful Use Info Meaningful Use Diagnoses (Choose all that apply): None applicable OBSV E&M: 79289 Observation care discharge
== END 2020-08-28 13:59 | disposition skilled nursing facility (03) ==
LOC: ED 08-24 00:32 → MS3 08-24 01:28
PROVIDERS: Admitting Provider Hospitalist; Emergency Provider Emergency Medicine; PCP Family Medicine; Referring Provider Hospitalist; Visit Provider Internal Medicine
DX: S30.0XXA Contusion of lower back and pelvis, initial encounter (principal); W18.30XA Fall on same level, unspecified, initial encounter; Y93.01 Activity, walking, marching and hiking; Y92.098 Other place in other non-institutional residence as the place of occurrence of the external cause; R29.6 Repeated falls; E11.9 Type 2 diabetes mellitus without complications; G20 Parkinson's disease; I25.10 Atherosclerotic heart disease of native coronary artery without angina pectoris; I10 Essential (primary) hypertension; E78.2 Mixed hyperlipidemia; B37.2 Candidiasis of skin and nail; R53.1 Weakness; Z79.4 Long term (current) use of insulin; Z79.899 Other long term (current) drug therapy; M19.90 Unspecified osteoarthritis, unspecified site; F32.9 Major depressive disorder, single episode, unspecified; E03.9 Hypothyroidism, unspecified; S51.012D Laceration without foreign body of left elbow, subsequent encounter; W19.XXXD Unspecified fall, subsequent encounter
CPT/HCPCS: 71045; 73502; 80048; 81001; 82962; 84484; 85025; 87426; 93005; 96372; 96374; 96375; 96376; 97110; 97116; 97162; 97166; 97530; 97533; 99218; 99251; 99285; A4216; G0378; G0463; J2405

== ENCOUNTER 2020-08-28 14:13 | Inpatient (IN) | payer MEDICARE, MEDICAID, SELFPAY ==
[2020-08-24 01:44] VITALS: BMI 39.3
[2020-08-28 14:26] VITALS: BP 167/62; PULSE 73; RESP 16; TEMP 35.7; O2SAT 93
[2020-08-28 14:32] VITALS: BMI 41.0
[2020-08-28 14:37] VITALS: BMI 41.0
--- NOTE | 2020-08-28 15:47 | CASEMGMT ---
Social Work Discussed code status with pt. Pt wishes to bed DNR-CCA, no intubation. Nursing notified. MOLST form reviewed, communication with , placed in chart. Lakshmi Crawley MSW [employer]
[2020-08-28] MEDS: Calcium Carbonate 500 MG Tablet PO (17:36)
[2020-08-28] MEDS: Carbidopa/Levodopa 25/100 Tablet PO ×2 (17:36→20:36)
[2020-08-28] MEDS: metFORMIN HCl 1,000 MG Tablet 1000 MG PO (17:37)
[2020-08-28 17:46] LABS: Bedside Glucose 114 mg/dL (70-110)
--- NOTE | 2020-08-28 19:45 | PCM.HP.STD ---
Problem List (1) Left hip pain Status: Acute (2) Coronary artery disease Status: Chronic (3) Hypertension Status: Chronic (4) Diabetes mellitus Status: Chronic (5) Hypothyroidism Status: Chronic (6) Allergic rhinitis Status: Chronic (7) Hypokalemia Status: Chronic (8) Depression Status: Chronic (9) Multiple falls Status: Acute (10) Debility Status: Acute (11) Hyperlipemia Status: Chronic (12) Parkinsons disease Status: Chronic (13) Dementia, unspecified, without behavioral disturbance Status: Chronic (14) Laceration of left elbow Status: Acute History of Present Illness Date of Admission: 08/28/20 Chief Complaint: Here for rehabilitation, strengthening, prior to disposition determination. 08/23/20 The patient is a 74 year old Female with below past medical history presented to [facility] Emergency Department with fall. 08/23/20 Chest X-ray low volume with interstitial and vascular crowding, negative focal airspace disease. 08/23/20 X-ray pelvis, left hip negative fracture, dislocation, consider MRI left hip if non weight bearing. Weak and tired x 2 weeks. Third visit to ER for falls in 1 week. Previous visit with left elbow laceration requiring suture repair. Standing with walker, shaking badly, fell. Evaluation negative for pneumonia, negative urinary tract infection, negative for metabolic disturbance. 08/24/20 Admit to Hospital. PT/OT for [facility]. 08/25/20 Mycostatin cream for tinea corporis under breasts. 08/28/20 Admit to TCU with debility, here for rehabilitation, strengthening, prior to disposition determination. Past Medical History Past Medical History (Chronic Problems): Chronic Problems (Last Reviewed 08/21/20 @ 15:10 by Arleen Davila) Hyperlipemia (Chronic) Coronary artery disease (Chronic) Hypertension (Chronic) Diabetes mellitus (Chronic) Hypothyroidism (Chronic) Allergic rhinitis (Chronic) Hypokalemia (Chronic) Depression (Chronic) Dementia, unspecified, without behavioral disturbance (Chronic) Type 2 diabetes mellitus (Chronic) Mixed hyperlipidemia (Chronic) Essential hypertension (Chronic) Atherosclerotic heart disease of [place] coronary artery without angina pectoris (Chronic) Mild Parkinsons disease (Chronic) Basal cell carcinoma of right cheek (Chronic) Medical History: Medical History (Last Reviewed 08/21/20 @ 15:10 by Arleen Davila) Type 2 diabetes mellitus (Chronic) E11.9 Mixed hyperlipidemia (Chronic) E78.2 Essential hypertension (Chronic) I10 Atherosclerotic heart disease of [place] coronary artery without angina pectoris (Chronic) I25.10 Mild Parkinsons disease (Chronic) G20 Arthritis M19.90 Vitamin deficiency E56.9 Depression F32.9 History of back problems Allergies Penicillins Allergy (Verified 08/22/20 18:54) Rash hydrocodone Adverse Reaction (Verified 08/22/20 18:54) hallucinations Home Medications: Ambulatory Orders Medication Instructions Recorded Aspirin [Aspir 81] 81 mg PO DAILY 03/28/19 Atorvastatin Calcium [Lipitor] 40 mg PO QHS 03/28/19 Calcium Carbonate [Calcium] 600 mg PO BID 03/28/19 Levothyroxine [Synthroid] 125 mcg PO DAILY 03/28/19 Metformin HCl 1,000 mg PO BID 03/28/19 Pioglitazone [Actos] 30 mg PO DAILY 03/28/19 Venlafaxine HCl [Effexor Xr] 150 mg PO DAILY 03/28/19 Acetaminophen [Tylenol Tablet] 650 mg PO Q4H PRN PRN tab 04/01/19 bisacodyl 5 mg tablet,delayed 10 mg PO BID PRN tab 12/15/19 release insulin glargine 100 unit/mL 20 unit SC QHS ml 12/15/19 subcutaneous solution sennosides 8.6 mg-docusate sodium 2 tab-cap PO QHS tab 02/07/20 50 mg tablet Ergocalciferol [Vitamin D] 50,000 unit PO SA 08/19/20 Olopatadine HCl [Patanol] 1 drp EACH EYE BREAKFAST 08/19/20 Valsartan/Hydrochlorothiazide 1 ea PO DAILY 08/19/20 [Valsartan-Hctz 320-25 mg Tab] bupropion HCl 75 mg tablet 150 mg PO DAILY tab 08/21/20 Aspirin E.C. [Ecotrin] 81 mg PO DAILY@0800 08/28/20 Calcium Carbonate [Elemental 600 mg PO BID 08/28/20 Calcium] Carbidopa/Levodopa 25 [Sinemet 2 tab PO 4X/DAY 08/28/20 25/100] Donepezil HCl 10 mg PO QHS 08/28/20 Nystatin [Mycostatin] 1 applic TOPICAL BID 08/28/20 Surgical History: Surgical History (Last Reviewed 08/21/20 @ 15:10 by Arleen Davila) History of bilateral knee replacement Z96.653 History of cataract surgery Z98.49 History of cholecystectomy Z90.49 Surgical History: cataract, cholecystectomy, total knee arthroplasty - Bilateral. Psychiatric History: Depression MANAGER DOMESTIC History: No pertinent MANAGER DOMESTIC history Lives: Care Home - [facility]. Smoking Status: Never smoker Tobacco Use: Non-smoker Alcohol: None Drugs: None - *Family History Maternal Family History: Family History (Last Reviewed 08/21/20 @ 15:10 by Arleen Davila) Father CVA (cerebral vascular accident) Mother Congestive heart failure (CHF) Brother CAD (coronary artery disease) Hypertension History of coronary artery bypass surgery History of mitral valve repair Sister CAD (coronary artery disease) Brother Hypertension Sister Cancer History Items: No pertinent history Paternal Family History: Family History (Last Reviewed 08/21/20 @ 15:10 by Arleen Davila) Father CVA (cerebral vascular accident) Mother Congestive heart failure (CHF) Brother CAD (coronary artery disease) Hypertension History of coronary artery bypass surgery History of mitral valve repair Sister CAD (coronary artery disease) Brother Hypertension Sister Cancer History Items: No pertinent history Review of Systems Constitutional: Denies: Chills, Fever, Weight Change HEENT: Denies: Head Aches, Sinus Congestion, Sinus Drainage Cardiovascular: Denies: Chest Pain, Palpitations Respiratory: Denies: Cough, Shortness of breath at rest, Sputum production Gastrointestinal: Denies: Abdominal Pain, Nausea, Vomiting Genitourinary: Denies: Dysuria Musculoskeletal: Denies: Joint Pain, Joint Tenderness Skin: Denies: Rash, Wounds Neurological: Denies: Numbness, Tingling, Focal weakness Psychiatric: Denies: Anxiety, Depression, Homicidal Ideations, Suicidal Ideations Hematologic/ Lymphatic: Denies: Easy Bruising, Easy Bleeding VTE Information - Inpt Only VTE Present on Admission: No VTE Mechan Device Prophylaxis: Knee High OIRANA Hose VTE Pharm Prophylaxis ordered?: Yes Patient Problems: Active and Suspected Problems (Last Reviewed 08/21/20 @ 15:10 by Arleen Davila) Multiple falls (Acute) Debility (Acute) Left hip pain (Acute) Laceration of left elbow (Acute) - Physical Exam Vitals/I&O's: Vital Signs Temp Pulse Resp BP Pulse Ox 96.3 F L 73 16 167/62 H 93 08/28/20 14:26 08/28/20 14:26 08/28/20 14:26 08/28/20 14:26 08/28/20 14:26 Oxygen Delivery Method Room Air Weight: 105 kg Body Mass Index (BMI) 41.0 Finger Stick Blood Glucose 176 General: Alert, Oriented x3, Cooperative HEENT: Atraumatic, PERRLA, EOMI, Normocephalic Neck: Supple, No JVD, Negative Carotid Bruits Lungs: Clear to auscultation, Normal air movement Cardiovascular: Regular rate, No murmurs Abdomen: Bowel Sounds Present, Soft, Non Tender Extremities: No edema, Capillary Refill Less than 3 Seconds Skin: No rashes, No breakdown, - - Left elbow laceration, sutures intact. Musculoskeletal: No Tenderness to Palpation of Joints or Extremities Neurological: Cranial nerves II-XII grossly intact Psych/Mental Status: Normal Affect, Appropriate Laboratory Results 08/28/20 17:34: POC Glucose 114 H Current Medications Acetaminophen (Acetaminophen 325 Mg Tablet) 650 mg PO Q4H PRN PRN PRN Reason: Pain Score 1-10 Aspirin (Aspirin E.C. 81 Mg Tablet) 81 mg PO DAILY@0800 [facility] Atorvastatin Calcium (Atorvastatin Calcium 40 Mg Tablet) 40 mg PO QHS [facility] Bisacodyl (Bisacodyl 5 Mg Tablet) 10 mg PO BID PRN PRN Reason: Constipation Bupropion HCl (Bupropion 75 Mg Tablet) 150 mg PO DAILY [facility] Calcium Carbonate (Calcium Carbonate 500 Mg Tablet) 500 mg PO BID [facility] Last Admin: 08/28/20 17:36 Dose: 500 mg Documented by: Carbidopa/Levodopa (Carbidopa/Levodopa 25/100 Tablet) 2 tablet PO 0700,1100,1600,2200 [facility] Last Admin: 08/28/20 17:36 Dose: 2 tablet Documented by: Donepezil HCl (Donepezil Hcl 10 Mg Tablet) 10 mg PO QHS [facility] Ergocalciferol (Ergocalciferol 50,000 Unit Capsule) 50,000 unit PO Sa@1000 [facility] Hydrochlorothiazide (Hydrochlorothiazide 25 Mg Tablet) 25 mg PO DAILY [facility] Insulin Glargine (Insulin Glargine 100 Units/Ml Pen) 20 units SC QHS [facility] Insulin Human Lispro (Insulin Lispro 100 Unit/Ml Insuln.Pen) 0 unit SC ACHS [facility]; Protocol Last Admin: 08/28/20 17:35 Dose: Not Given Documented by: Levothyroxine Sodium (Levothyroxine 125 Mcg Tablet) 125 mcg PO DAILY [facility] Losartan Potassium (Losartan Potassium 100 Mg Tablet) 100 mg PO DAILY [facility] Metformin HCl (Met[facility] Hcl 1,000 Mg Tablet) [facility] Last Admin: 08/28/20 17:37 Dose: 1,000 mg Documented by: Nystatin (Nystatin Powder 15gm Bottle) 1 applic TOPICAL BID [facility]; Protocol Pioglitazone HCl (Pioglitazone Hydrochloride 30 Mg Tablet) 30 mg PO DAILY [facility] Senna/Docusate Sodium (Senna/Docusate Sodium 1 Tablet) 2 tablet PO QHS [facility] Tuberculin PPD (Tuberculin,Purif.Prot.Deriv. 50 Tu/Ml Vial) 5 tu ID X1 ONE Stop: 08/29/20 10:01 Tuberculin PPD (Tuberculin,Purif.Prot.Deriv. 50 Tu/Ml Vial) 5 tu ID X1 ONE Stop: 09/05/20 10:01 Venlafaxine HCl (Venlafaxine Xr 150 Mg Capsule) 150 mg PO DAILY [facility] Assessment/Plan All Active Problems (Last Reviewed 08/21/20 @ 15:10 by Arleen Davila) Multiple falls (Acute) Debility (Acute) Contusion of pelvis (Acute) Cutaneous mycosis (Acute) Left hip pain (Acute) Laceration of left elbow (Acute) 74 year old female with below past medical history significant for Parkinson Disease, hospitalized for frequent falls, admitted to TCU with debility, here for rehabilitation, strengthening, prior to disposition determination. Debility - PT/OT. Pain - Tylenol 1000MG Q6H PRN pain (1-10). Bowel - Miralax 17GM daily, Senna/colace 1 tablet BID, MOM 30ML daily PRN, Dulcolax 10MG [place] daily PRN. Adult immunization - Administer Prevnar 13, Pneumovax 23, Fluzone as appropriate. DVT prophylaxis - Lovenox 40MG SC daily. Coronary Artery Disease - Losartan 100MG daily, Aspirin 81MG daily. Hyperlipidemia - Atorvastatin 40MG QHS. Depression - Venlafaxine 150MG daily, Bupropion 150MG daily, stable chronic terminal operations manager use, GDR not recommended. Indigestion - TUMS 500MG BID. Parkinson Disease - Sinemet 25/100MG 2 tablets 4x/day. Dementia NOS - Donepezil 10MG QHS. Vitamin D deficiency - D2 50,000 units per week. Hypertension - Losartan 100MG daily, HCTZ 25MG daily. Diabetes Mellitus II - Metformin 1000MG BID, Pioglitazone 30MG QHS, Lantus 20 units QHS. Hypothyroidism - Levothyroxine 125MCG daily. Tinea Corporis - Nystatin powder topical BID.
[2020-08-28] MEDS: Donepezil HCl 10 MG Tablet PO (20:35)
[2020-08-28] MEDS: Atorvastatin Calcium 40 MG Tablet PO (20:37)
[2020-08-28] MEDS: Nystatin Powder 15gm Bottle 1 APPLIC TOPICAL (20:39)
[2020-08-28 21:15] LABS: Bedside Glucose 116 mg/dL (70-110)
[2020-08-29 02:14] VITALS: BP 189/51; PULSE 84; RESP 16; TEMP 36.6; O2SAT 95
[2020-08-29] MEDS: Acetaminophen 500 MG Tablet 1000 MG PO (02:18)
[2020-08-29] MEDS: Losartan Potassium 100 MG Tablet PO (04:55)
[2020-08-29] MEDS: buPROPion 75 MG Tablet 150 MG PO (04:55)
[2020-08-29] MEDS: Venlafaxine XR 150 MG Capsule PO (04:55)
[2020-08-29] MEDS: Levothyroxine 125 MCG Tablet PO (04:55)
[2020-08-29] MEDS: Carbidopa/Levodopa 25/100 Tablet PO ×4 (04:55→21:38)
[2020-08-29] MEDS: Enoxaparin 40 MG/0.4 ML Syringe SC (04:56)
[2020-08-29] MEDS: Senna/Docusate Sodium 1 Tablet PO ×2 (04:56→16:17)
[2020-08-29] MEDS: Polyethylene Glycol 3350 17 GM PACKET PO (04:56)
[2020-08-29] MEDS: Pioglitazone Hydrochloride 30 MG Tablet PO (04:56)
[2020-08-29] MEDS: Calcium Carbonate 500 MG Tablet PO ×2 (04:57→17:50)
[2020-08-29] MEDS: Nystatin Powder 15gm Bottle 1 APPLIC TOPICAL ×2 (04:59→16:17)
[2020-08-29] MEDS: hydroCHLOROthiazide 25 MG Tablet PO (05:01)
[2020-08-29 06:07] LABS: Absolute Neutrophil Count 6.3 X10^3/uL (2.0-7.7); Basophil# 0.05 X10^3/uL; Basophil% 0.5 % (0-1); Eosinophil# 0.22 X10^3/uL; Eosinophils% 2.4 % (0-5); Hematocrit 35.3 % (37-47); Hemoglobin 10.7 g/dL (12.0-15.0); Lymphocyte % 19.6 % (19-41); Mean Corp Hgb Conc 30.3 g/dL (32-36); Mean Corpuscular Hgb 27.7 pg (27.0-32.0); Mean Corpuscular Volume 91.5 fL (81-99); Mean Platelet Vol. 9.4 fl (6.2-12.0); Monocyte# 0.77 X10^3/uL; Monocyte% 8.4 % (0-10); NRBC Flagged by Analyzer 0 % (0-5); Neutrophil # 6.28 X10^3/uL (2.7-7.7); Neutrophil % 68.6 % (47-70); Platelet Count 287 K/mm3 (150-450); RBC Distribution Width CV 13.2 % (11.6-14.6); RBC Distribution Width SD 44.1 fl (35.1-43.9); Red Blood Count 3.86 M/mm3 (4.2-5.4); White Blood Count 9.2 K/mm3 (4.4-11.0)
[2020-08-29 06:25] LABS: Bedside Glucose 151 mg/dL (70-110)
[2020-08-29 06:30] LABS: Anion Gap 5 (5-15); BUN 23 mg/dL (7-18); Calcium,Total 9.3 mg/dL (8.5-10.1); Chloride 101 mmol/L (98-107); Creatinine, Serum 0.64 mg/dL (0.55-1.02); EST Glomerular Filtration Rate 96 mL/min (>60); Est Glom Filt Rate - Afr Amer 116 mL/min (>60); Estimated Creatinine Clearance 40.21 ml/min; Glucose 151 mg/dL (74-106); Potassium 3.5 mmol/L (3.5-5.1); Sodium Level 136 mmol/L (136-145)
[2020-08-29] MEDS: metFORMIN HCl 1,000 MG Tablet 1000 MG PO ×2 (08:31→16:17)
[2020-08-29] MEDS: Aspirin E.C. 81 MG Tablet PO (08:31)
[2020-08-29] MEDS: Tuberculin,Purif.prot.deriv. 50 TU/ML Vial 5 ML ID (09:35)
[2020-08-29 10:55] LABS: Bedside Glucose 174 mg/dL (70-110)
--- NOTE | 2020-08-29 13:57 | PHA.CONS_ITS ---
<Juany Mendez - Last Filed: 08/29/20 13:57> Progress Note - Pharmacy Subjective: TCU Admission Objective: Allergies Penicillins Allergy (Verified 08/22/20 18:54) Rash hydrocodone Adverse Reaction (Verified 08/22/20 18:54) hallucinations Current Medications Generic Name Dose Route Start Last Admin Trade Name Freq PRN Reason Stop Dose Admin Acetaminophen 1,000 mg 08/28/20 20:04 08/29/20 02:18 Acetaminophen 500 Mg Tablet PO 1,000 mg Q6H PRN PRN Administration Pain Score 1-10 Aspirin 81 mg 08/29/20 08:00 08/29/20 08:31 Aspirin E.C. 81 Mg Tablet PO 81 mg DAILY@0800 [facility] Administration Atorvastatin Calcium 40 mg 08/28/20 22:00 08/28/20 20:37 Atorvastatin Calcium 40 Mg Tablet PO 40 mg QHS [facility] Administration Bisacodyl 10 mg 08/28/20 20:04 Bisacodyl 10 Mg Suppository RECTAL DAILY PRN Constipation Bupropion HCl 150 mg 08/29/20 06:00 08/29/20 04:55 Bupropion 75 Mg Tablet PO 150 mg DAILY [facility] Administration Calcium Carbonate 500 mg 08/28/20 18:00 08/29/20 04:57 Calcium Carbonate 500 Mg Tablet PO 500 mg BID [facility] Administration Carbidopa/Levodopa 2 tablet 08/28/20 16:00 08/29/20 11:05 Carbidopa/Levodopa 25/100 Tablet PO 2 tablet 0700,1100,1600,2200 [facility] Administration Donepezil HCl 10 mg 08/28/20 22:00 08/28/20 20:35 Donepezil Hcl 10 Mg Tablet PO 10 mg QHS [facility] Administration Enoxaparin Sodium 40 mg 08/29/20 06:00 08/29/20 04:56 Enoxaparin 40 Mg/0.4 Ml Syringe SC 40 mg DAILY@0600 [facility] Administration Ergocalciferol 50,000 unit 09/01/20 10:00 Ergocalciferol 50,000 Unit Capsule PO Sa@1000 [facility] Hydrochlorothiazide 25 mg 08/29/20 06:00 08/29/20 05:01 Hydrochlorothiazide 25 Mg Tablet PO 25 mg DAILY [facility] Administration Insulin Glargine 20 units 08/28/20 22:00 08/28/20 21:43 Insulin Glargine 100 Units/Ml Pen SC 20 units QHS [facility] Administration Levothyroxine Sodium 125 mcg 08/29/20 06:00 08/29/20 04:55 Levothyroxine 125 Mcg Tablet PO 125 mcg DAILY [facility] Administration Losartan Potassium 100 mg 08/29/20 06:00 08/29/20 04:55 Losartan Potassium 100 Mg Tablet PO 100 mg DAILY [facility] Administration Magnesium Hydroxide 30 ml 08/28/20 20:05 Magnesium Hydroxide 30 Ml Udc PO DAILY PRN Constipation Metformin HCl 1,000 mg 08/28/20 17:00 08/29/20 08:31 Metformin Hcl 1,000 Mg Tablet PO 1,000 mg BIDCM [facility] Administration Nystatin 1 applic 08/28/20 18:00 08/29/20 04:59 Nystatin Powder 15gm Bottle TOPICAL 1 applicatio BID [facility] Administration Protocol Pioglitazone HCl 30 mg 08/29/20 06:00 08/29/20 04:56 Pioglitazone Hydrochloride 30 Mg Tablet PO 30 mg DAILY [facility] Administration Polyethylene Glycol 17 gm 08/29/20 06:00 08/29/20 04:56 Polyethylene Glycol 3350 17 Gm Packet PO 17 gm DAILY [facility] Administration Senna/Docusate Sodium 1 tablet 08/29/20 06:00 08/29/20 04:56 Senna/Docusate Sodium 1 Tablet PO 1 tablet BID [facility] Administration Tuberculin PPD 5 tu 09/05/20 10:00 Tuberculin,Purif.Prot.Deriv. 50 Tu/Ml Vial ID 09/05/20 10:01 X1 ONE Venlafaxine HCl 150 mg 08/29/20 06:00 08/29/20 04:55 Venlafaxine Xr 150 Mg Capsule PO 150 mg DAILY [facility] Administration Problem List (Last Reviewed 08/21/20 @ 15:10 by Arleen Davila) Multiple falls (Acute) Debility (Acute) Hyperlipemia (Chronic) Left hip pain (Acute) Coronary artery disease (Chronic) Hypertension (Chronic) Diabetes mellitus (Chronic) Hypothyroidism (Chronic) Allergic rhinitis (Chronic) Hypokalemia (Chronic) Depression (Chronic) Dementia, unspecified, without behavioral disturbance (Chronic) Laceration of left elbow (Acute) Parkinsons disease (Chronic) Vital Signs Temp Pulse Resp BP Pulse Ox 97.9 F 84 16 189/51 H 95 08/29/20 02:14 08/29/20 02:14 08/29/20 02:14 08/29/20 02:14 08/29/20 02:14 Oxygen Delivery Method Room Air Weight: 105 kg Body Mass Index (BMI) 41.0 Finger Stick Blood Glucose 176 Sodium 136 mmol/L (136-145) 08/29/20 05:35 Potassium 3.5 mmol/L (3.5-5.1) 08/29/20 05:35 Chloride 101 mmol/L (98-107) 08/29/20 05:35 Carbon Dioxide 30.0 mmol/L (21.0-32.0) 08/29/20 05:35 Anion Gap 5 (5-15) 08/29/20 05:35 BUN 23 mg/dL (7-18) H 08/29/20 05:35 Creatinine 0.64 mg/dL (0.55-1.02) 08/29/20 05:35 Est GFR (MDRD) Af Amer 116 mL/min (>60) 08/29/20 05:35 Est GFR (MDRD) Non-Af 96 mL/min (>60) 08/29/20 05:35 BUN/Creatinine Ratio 36.0 RATIO (10-20) H 08/29/20 05:35 Glucose 151 mg/dL (74-106) H 08/29/20 05:35 Assessment/Plan: 1. Pain: acetaminophen 1000mg PO Q6H PRN pain 1-06/09. Please continue to monitor for pain and PRN usage. 2. DVT prophylaxis: enoxaparin 40mg SC daily. Please continue to monitor for S/S of bleeding/DVT, hemoglobin (last 10.7 g/dL), and platelets (last 287,000). 3. CAD/hypertension: losartan 100mg PO daily, aspirin 81mg PO DAILYCM, hydrochlorothiazide 25mg PO daily. Please continue to monitor BP (last 189/51), renal function, S/S of bleeding, and electrolytes. *4. Hyperlipidemia: atorvastatin 40mg PO QHS. Please consider ordering a lipid panel now and then annually as clinically appropriate. Last panel from 01/2019. Thanks. Please continue to monitor for muscle pain. 5. Indigestion: calcium carbonate 500mg PO BID. Please continue to monitor calcium levels (last 9.3 mg/dL). 6. Parkinson disease: carbidopa/levodopa 25mg/100mg 2T PO 4x/day. Please continue to monitor for dyskinesia. 7. Dementia NOS: donepezil 10mg PO QHS. Please continue to monitor for GI side effects. *8. Diabetes mellitus: insulin glargine 20units SC QHS, metformin 1000mg PO BIDCM, and pioglitazone 30mg PO daily. Please consider ordering a hemoglobin A1c. Last A1c was 9.6% in 08/2018. Please continue to monitor renal function, S/S of hypo/hyperglycemia, and blood glucose (last 174 mg/dL). 9. Hypothyroidism: levothyroxine 125mcg PO daily. Please continue to monitor TSH (last 05/2020) and S/S of hypo/hyperthyroidism. 10. Vitamin D deficiency: ergocalciferol 50,000 units PO weekly. Please continue to monitor vitamin D levels (last 05/2020). Psychotropic Medications: 1. Depression: bupropion 150mg PO daily and venlafaxine XR 150mg PO daily. Please see physician note regarding GDR. Unnecessary Medications: None Bowel Regimen: Miralax 17gm PO daily, senna/docusate 1T PO BID, MOM 30mL PO daily PRN constipation, and bisacodyl 10mg AR daily PRN constipation. Please continue to monitor for constipation and PRN usage. Date of Note:: 08/29/20 - Provider Comments Provider responsibility: Provider responsible to enter orders to implement recommendations <Evens Munoz Chi - Last Filed: 08/29/20 17:15> Progress Note - Pharmacy Subjective: [] Objective: Allergies Penicillins Allergy (Verified 08/22/20 18:54) Rash hydrocodone Adverse Reaction (Verified 08/22/20 18:54) hallucinations Current Medications Generic Name Dose Route Start Last Admin Trade Name Freq PRN Reason Stop Dose Admin Acetaminophen 1,000 mg 08/28/20 20:04 08/29/20 02:18 Acetaminophen 500 Mg Tablet PO 1,000 mg Q6H PRN PRN Administration Pain Score 1-10 Aspirin 81 mg 08/29/20 08:00 08/29/20 08:31 Aspirin E.C. 81 Mg Tablet PO 81 mg DAILY@0800 [facility] Administration Atorvastatin Calcium 40 mg 08/28/20 22:00 08/28/20 20:37 Atorvastatin Calcium 40 Mg Tablet PO 40 mg QHS [facility] Administration Bisacodyl 10 mg 08/28/20 20:04 Bisacodyl 10 Mg Suppository RECTAL DAILY PRN Constipation Bupropion HCl 150 mg 08/29/20 06:00 08/29/20 04:55 Bupropion 75 Mg Tablet PO 150 mg DAILY [facility] Administration Calcium Carbonate 500 mg 08/28/20 18:00 08/29/20 04:57 Calcium Carbonate 500 Mg Tablet PO 500 mg BID [facility] Administration Carbidopa/Levodopa 2 tablet 08/28/20 16:00 08/29/20 16:16 Carbidopa/Levodopa 25/100 Tablet PO 2 tablet 0700,1100,1600,2200 [facility] Administration Donepezil HCl 10 mg 08/28/20 22:00 08/28/20 20:35 Donepezil Hcl 10 Mg Tablet PO 10 mg QHS [facility] Administration Enoxaparin Sodium 40 mg 08/29/20 06:00 08/29/20 04:56 Enoxaparin 40 Mg/0.4 Ml Syringe SC 40 mg DAILY@0600 [facility] Administration Ergocalciferol 50,000 unit 09/01/20 10:00 Ergocalciferol 50,000 Unit Capsule PO Sa@1000 [facility] Hydrochlorothiazide 25 mg 08/29/20 06:00 08/29/20 05:01 Hydrochlorothiazide 25 Mg Tablet PO 25 mg DAILY [facility] Administration Insulin Glargine 20 units 08/28/20 22:00 08/28/20 21:43 Insulin Glargine 100 Units/Ml Pen SC 20 units QHS [facility] Administration Levothyroxine Sodium 125 mcg 08/29/20 06:00 08/29/20 04:55 Levothyroxine 125 Mcg Tablet PO 125 mcg DAILY [facility] Administration Losartan Potassium 100 mg 08/29/20 06:00 08/29/20 04:55 Losartan Potassium 100 Mg Tablet PO 100 mg DAILY [facility] Administration Magnesium Hydroxide 30 ml 08/28/20 20:05 Magnesium Hydroxide 30 Ml Udc PO DAILY PRN Constipation Metformin HCl 1,000 mg 08/28/20 17:00 08/29/20 16:17 Metformin Hcl 1,000 Mg Tablet PO 1,000 mg BIDCM [facility] Administration Nystatin 1 applic 08/28/20 18:00 08/29/20 16:17 Nystatin Powder 15gm Bottle TOPICAL 1 applicatio BID [facility] Administration Protocol Pioglitazone HCl 30 mg 08/29/20 06:00 08/29/20 04:56 Pioglitazone Hydrochloride 30 Mg Tablet PO 30 mg DAILY [facility] Administration Polyethylene Glycol 17 gm 08/29/20 06:00 08/29/20 04:56 Polyethylene Glycol 3350 17 Gm Packet PO 17 gm DAILY [facility] Administration Senna/Docusate Sodium 1 tablet 08/29/20 06:00 08/29/20 16:17 Senna/Docusate Sodium 1 Tablet PO 1 tablet BID [facility] Administration Tuberculin PPD 5 tu 09/05/20 10:00 Tuberculin,Purif.Prot.Deriv. 50 Tu/Ml Vial ID 09/05/20 10:01 X1 ONE Venlafaxine HCl 150 mg 08/29/20 06:00 08/29/20 04:55 Venlafaxine Xr 150 Mg Capsule PO 150 mg DAILY [facility] Administration Problem List (Last Reviewed 08/21/20 @ 15:10 by Arleen Davila) Multiple falls (Acute) Debility (Acute) Hyperlipemia (Chronic) Left hip pain (Acute) Coronary artery disease (Chronic) Hypertension (Chronic) Diabetes mellitus (Chronic) Hypothyroidism (Chronic) Allergic rhinitis (Chronic) Hypokalemia (Chronic) Depression (Chronic) Dementia, unspecified, without behavioral disturbance (Chronic) Laceration of left elbow (Acute) Parkinsons disease (Chronic) Vital Signs Temp Pulse Resp BP Pulse Ox 97.8 F 72 18 158/67 H 95 08/29/20 14:14 08/29/20 14:16 08/29/20 14:16 08/29/20 14:14 08/29/20 14:16 Oxygen Delivery Method Room Air Weight: 105 kg Body Mass Index (BMI) 41.0 Finger Stick Blood Glucose 176 Sodium 136 mmol/L (136-145) 08/29/20 05:35 Potassium 3.5 mmol/L (3.5-5.1) 08/29/20 05:35 Chloride 101 mmol/L (98-107) 08/29/20 05:35 Carbon Dioxide 30.0 mmol/L (21.0-32.0) 08/29/20 05:35 Anion Gap 5 (5-15) 08/29/20 05:35 BUN 23 mg/dL (7-18) H 08/29/20 05:35 Creatinine 0.64 mg/dL (0.55-1.02) 08/29/20 05:35 Est GFR (MDRD) Af Amer 116 mL/min (>60) 08/29/20 05:35 Est GFR (MDRD) Non-Af 96 mL/min (>60) 08/29/20 05:35 BUN/Creatinine Ratio 36.0 RATIO (10-20) H 08/29/20 05:35 Glucose 151 mg/dL (74-106) H 08/29/20 05:35 Assessment/Plan: Psychotropic Medications: Unnecessary Medications: Bowel Regimen: - Provider Comments Provider responsibility: Provider responsible to enter orders to implement recommendations Provider Comments to Recommendations by Pharmacy: Agree
[2020-08-29 14:14] VITALS: BP 158/67; PULSE 72; RESP 18; TEMP 36.6; O2SAT 95
[2020-08-29 14:16] VITALS: PULSE 72; RESP 18; O2SAT 95
--- NOTE | 2020-08-29 15:40 | NURSING ---
Patient's given update on patient status. Appreciative of update.
[2020-08-29 16:41] LABS: Bedside Glucose 147 mg/dL (70-110)
[2020-08-29 21:35] LABS: Bedside Glucose 145 mg/dL (70-110)
[2020-08-29] MEDS: Donepezil HCl 10 MG Tablet PO (21:39)
[2020-08-29] MEDS: Atorvastatin Calcium 40 MG Tablet PO (21:39)
[2020-08-30 04:09] VITALS: BP 162/69; PULSE 70; RESP 18; TEMP 36.4; O2SAT 94
[2020-08-30] MEDS: Polyethylene Glycol 3350 17 GM PACKET PO (04:11)
[2020-08-30] MEDS: Pioglitazone Hydrochloride 30 MG Tablet PO (04:11)
[2020-08-30] MEDS: Senna/Docusate Sodium 1 Tablet PO ×2 (04:11→17:06)
[2020-08-30] MEDS: Enoxaparin 40 MG/0.4 ML Syringe SC (04:11)
[2020-08-30] MEDS: buPROPion 75 MG Tablet 150 MG PO (04:11)
[2020-08-30] MEDS: hydroCHLOROthiazide 25 MG Tablet PO (04:12)
[2020-08-30] MEDS: Levothyroxine 125 MCG Tablet PO (04:12)
[2020-08-30] MEDS: Venlafaxine XR 150 MG Capsule PO (04:12)
[2020-08-30] MEDS: Calcium Carbonate 500 MG Tablet PO ×2 (04:12→17:06)
[2020-08-30] MEDS: Losartan Potassium 100 MG Tablet PO (04:12)
[2020-08-30] MEDS: Acetaminophen 500 MG Tablet 1000 MG PO (04:15)
[2020-08-30] MEDS: Nystatin Powder 15gm Bottle 1 APPLIC TOPICAL ×2 (04:18→17:06)
[2020-08-30 06:36] LABS: Bedside Glucose 137 mg/dL (70-110)
[2020-08-30] MEDS: Carbidopa/Levodopa 25/100 Tablet PO ×4 (06:43→20:49)
[2020-08-30] MEDS: metFORMIN HCl 1,000 MG Tablet 1000 MG PO ×2 (08:00→17:06)
[2020-08-30] MEDS: Aspirin E.C. 81 MG Tablet PO (08:00)
[2020-08-30 11:16] LABS: Bedside Glucose 149 mg/dL (70-110)
--- NOTE | 2020-08-30 12:01 | NURSING ---
Offered to contact family for update, pt denies need, stating she talks with them daily.
[2020-08-30 16:00] VITALS: BP 155/53; PULSE 65; RESP 18; TEMP 36.3; O2SAT 98
[2020-08-30 16:16] LABS: Bedside Glucose 212 mg/dL (70-110)
[2020-08-30] MEDS: Donepezil HCl 10 MG Tablet PO (20:49)
[2020-08-30] MEDS: Atorvastatin Calcium 40 MG Tablet PO (20:49)
[2020-08-30 21:31] LABS: Bedside Glucose 132 mg/dL (70-110)
[2020-08-31] MEDS: Calcium Carbonate 500 MG Tablet PO ×2 (04:45→16:39)
[2020-08-31] MEDS: Venlafaxine XR 150 MG Capsule PO (04:45)
[2020-08-31] MEDS: Senna/Docusate Sodium 1 Tablet PO ×2 (04:46→16:40)
[2020-08-31] MEDS: buPROPion 75 MG Tablet 150 MG PO (04:46)
[2020-08-31] MEDS: Nystatin Powder 15gm Bottle 1 APPLIC TOPICAL ×2 (04:46→16:40)
[2020-08-31] MEDS: Polyethylene Glycol 3350 17 GM PACKET PO (04:47)
[2020-08-31] MEDS: Enoxaparin 40 MG/0.4 ML Syringe SC (04:47)
[2020-08-31] MEDS: Losartan Potassium 100 MG Tablet PO (04:48)
[2020-08-31] MEDS: Levothyroxine 125 MCG Tablet PO (04:49)
[2020-08-31] MEDS: hydroCHLOROthiazide 25 MG Tablet PO (04:49)
[2020-08-31] MEDS: Pioglitazone Hydrochloride 30 MG Tablet PO (04:50)
[2020-08-31 06:11] LABS: Bedside Glucose 99 mg/dL (70-110)
[2020-08-31] MEDS: Carbidopa/Levodopa 25/100 Tablet PO ×4 (08:12→22:45)
[2020-08-31] MEDS: Aspirin E.C. 81 MG Tablet PO (08:12)
[2020-08-31] MEDS: metFORMIN HCl 1,000 MG Tablet 1000 MG PO ×2 (08:13→16:39)
[2020-08-31 10:56] LABS: Bedside Glucose 147 mg/dL (70-110)
[2020-08-31 13:43] VITALS: BP 155/60; PULSE 82; RESP 18; TEMP 36.4; O2SAT 94
[2020-08-31 16:26] LABS: Bedside Glucose 114 mg/dL (70-110)
[2020-08-31 21:30] LABS: Bedside Glucose 156 mg/dL (70-110)
[2020-08-31] MEDS: Acetaminophen 500 MG Tablet 1000 MG PO (22:41)
[2020-08-31] MEDS: Donepezil HCl 10 MG Tablet PO (22:43)
[2020-08-31] MEDS: Atorvastatin Calcium 40 MG Tablet PO (22:45)
[2020-09-01 05:00] VITALS: BP 156/69; PULSE 73; RESP 18; TEMP 36.6; O2SAT 96
[2020-09-01] MEDS: Pioglitazone Hydrochloride 30 MG Tablet PO (06:29)
[2020-09-01] MEDS: Polyethylene Glycol 3350 17 GM PACKET PO (06:29)
[2020-09-01] MEDS: Enoxaparin 40 MG/0.4 ML Syringe SC (06:30)
[2020-09-01] MEDS: Senna/Docusate Sodium 1 Tablet PO ×2 (06:30→17:00)
[2020-09-01] MEDS: Levothyroxine 125 MCG Tablet PO (06:30)
[2020-09-01] MEDS: Venlafaxine XR 150 MG Capsule PO (06:30)
[2020-09-01] MEDS: Carbidopa/Levodopa 25/100 Tablet PO ×4 (06:30→20:51)
[2020-09-01] MEDS: Losartan Potassium 100 MG Tablet PO (06:30)
[2020-09-01] MEDS: Calcium Carbonate 500 MG Tablet PO ×2 (06:30→17:01)
[2020-09-01] MEDS: buPROPion 75 MG Tablet 150 MG PO (06:30)
[2020-09-01] MEDS: hydroCHLOROthiazide 25 MG Tablet PO (06:30)
[2020-09-01] MEDS: Nystatin Powder 15gm Bottle 1 APPLIC TOPICAL ×2 (06:31→17:01)
[2020-09-01 06:36] LABS: Bedside Glucose 90 mg/dL (70-110)
[2020-09-01] MEDS: Aspirin E.C. 81 MG Tablet PO (08:02)
[2020-09-01] MEDS: metFORMIN HCl 1,000 MG Tablet 1000 MG PO ×2 (08:02→17:01)
[2020-09-01 10:56] LABS: Bedside Glucose 177 mg/dL (70-110)
[2020-09-01 13:51] VITALS: BP 159/53; PULSE 85; RESP 15; TEMP 36.3; O2SAT 92
[2020-09-01 16:50] LABS: Bedside Glucose 167 mg/dL (70-110)
[2020-09-01] MEDS: Donepezil HCl 10 MG Tablet PO (20:52)
[2020-09-01] MEDS: Atorvastatin Calcium 40 MG Tablet PO (20:52)
[2020-09-01 21:10] LABS: Bedside Glucose 171 mg/dL (70-110)
[2020-09-01] MEDS: Acetaminophen 500 MG Tablet 1000 MG PO (22:29)
[2020-09-02 03:59] VITALS: BP 155/67; PULSE 80; RESP 18; TEMP 36; O2SAT 98
[2020-09-02] MEDS: Polyethylene Glycol 3350 17 GM PACKET PO (04:04)
[2020-09-02] MEDS: Carbidopa/Levodopa 25/100 Tablet PO ×4 (04:05→21:40)
[2020-09-02] MEDS: Enoxaparin 40 MG/0.4 ML Syringe SC (04:05)
[2020-09-02] MEDS: Pioglitazone Hydrochloride 30 MG Tablet PO (04:05)
[2020-09-02] MEDS: Losartan Potassium 100 MG Tablet PO (04:06)
[2020-09-02] MEDS: Levothyroxine 125 MCG Tablet PO (04:06)
[2020-09-02] MEDS: Calcium Carbonate 500 MG Tablet PO ×2 (04:06→16:30)
[2020-09-02] MEDS: hydroCHLOROthiazide 25 MG Tablet PO (04:06)
[2020-09-02] MEDS: Senna/Docusate Sodium 1 Tablet PO (04:06)
[2020-09-02] MEDS: buPROPion 75 MG Tablet 150 MG PO (04:06)
[2020-09-02] MEDS: Venlafaxine XR 150 MG Capsule PO (04:06)
[2020-09-02] MEDS: Nystatin Powder 15gm Bottle 1 APPLIC TOPICAL ×2 (04:07→16:31)
[2020-09-02 06:16] LABS: Bedside Glucose 92 mg/dL (70-110)
[2020-09-02] MEDS: Aspirin E.C. 81 MG Tablet PO (08:02)
[2020-09-02] MEDS: metFORMIN HCl 1,000 MG Tablet 1000 MG PO ×2 (08:02→16:30)
[2020-09-02 10:56] LABS: Bedside Glucose 219 mg/dL (70-110)
[2020-09-02 14:04] VITALS: BP 142/62; PULSE 75; RESP 18; TEMP 36; O2SAT 9
[2020-09-02 16:41] LABS: Bedside Glucose 158 mg/dL (70-110)
[2020-09-02] MEDS: Atorvastatin Calcium 40 MG Tablet PO (21:40)
[2020-09-02] MEDS: Donepezil HCl 10 MG Tablet PO (21:40)
[2020-09-02 21:56] LABS: Bedside Glucose 147 mg/dL (70-110)
[2020-09-03 05:57] VITALS: BP 175/70; PULSE 69; RESP 16; TEMP 36.2; O2SAT 93
[2020-09-03] MEDS: Pioglitazone Hydrochloride 30 MG Tablet PO (05:59)
[2020-09-03] MEDS: Levothyroxine 125 MCG Tablet PO (05:59)
[2020-09-03] MEDS: buPROPion 75 MG Tablet 150 MG PO (05:59)
[2020-09-03] MEDS: Calcium Carbonate 500 MG Tablet PO ×2 (05:59→16:34)
[2020-09-03] MEDS: Carbidopa/Levodopa 25/100 Tablet PO ×4 (05:59→21:39)
[2020-09-03] MEDS: Enoxaparin 40 MG/0.4 ML Syringe SC (05:59)
[2020-09-03] MEDS: Polyethylene Glycol 3350 17 GM PACKET PO (05:59)
[2020-09-03] MEDS: Losartan Potassium 100 MG Tablet PO (06:00)
[2020-09-03] MEDS: Venlafaxine XR 150 MG Capsule PO (06:00)
[2020-09-03] MEDS: Senna/Docusate Sodium 1 Tablet PO (06:00)
[2020-09-03] MEDS: Nystatin Powder 15gm Bottle 1 APPLIC TOPICAL ×2 (06:00→16:36)
[2020-09-03] MEDS: hydroCHLOROthiazide 25 MG Tablet PO (06:00)
[2020-09-03 06:10] LABS: Bedside Glucose 106 mg/dL (70-110)
[2020-09-03] MEDS: metFORMIN HCl 1,000 MG Tablet 1000 MG PO ×2 (07:30→16:34)
[2020-09-03] MEDS: Aspirin E.C. 81 MG Tablet PO (07:30)
[2020-09-03 10:51] LABS: Bedside Glucose 188 mg/dL (70-110)
[2020-09-03 14:31] VITALS: BP 156/53; PULSE 72; RESP 18; TEMP 36.3; O2SAT 94
[2020-09-03 16:30] LABS: Bedside Glucose 166 mg/dL (70-110)
[2020-09-03 21:11] LABS: Bedside Glucose 141 mg/dL (70-110)
[2020-09-03] MEDS: Donepezil HCl 10 MG Tablet PO (21:28)
[2020-09-03] MEDS: Atorvastatin Calcium 40 MG Tablet PO (21:29)
[2020-09-03] MEDS: CARBIDOPA/LEVODOPA CR 50/200 Tablet PO (21:39)
[2020-09-04 03:36] VITALS: BP 164/69; PULSE 78; RESP 18; TEMP 36.2; O2SAT 99
[2020-09-04] MEDS: Pioglitazone Hydrochloride 30 MG Tablet PO (05:20)
[2020-09-04] MEDS: Losartan Potassium 100 MG Tablet PO (05:21)
[2020-09-04] MEDS: Venlafaxine XR 150 MG Capsule PO (05:21)
[2020-09-04] MEDS: Enoxaparin 40 MG/0.4 ML Syringe SC (05:22)
[2020-09-04] MEDS: Nystatin Powder 15gm Bottle 1 APPLIC TOPICAL ×2 (05:22→18:02)
[2020-09-04] MEDS: hydroCHLOROthiazide 25 MG Tablet PO (05:22)
[2020-09-04] MEDS: buPROPion 75 MG Tablet 150 MG PO (05:23)
[2020-09-04] MEDS: Levothyroxine 125 MCG Tablet PO (05:23)
[2020-09-04] MEDS: Senna/Docusate Sodium 1 Tablet PO ×2 (05:23→18:01)
[2020-09-04] MEDS: Calcium Carbonate 500 MG Tablet PO ×2 (05:23→18:01)
[2020-09-04 06:15] LABS: Bedside Glucose 65 mg/dL (70-110)
--- NOTE | 2020-09-04 07:08 | NURSING ---
0630 SN to room. Pt in restroom with aide. Pt states blood sugar is 65. Pt denies any symptoms, currently asymptomatic. Aide had given Oj and two shortbread cookies. This SN gave another shortbread cookie. Pt requesting candy bar (milky [address]) from her purse and milk. Therapy here with Pt for AM care. RN notified.
[2020-09-04 07:20] LABS: Bedside Glucose 142 mg/dL (70-110)
[2020-09-04] MEDS: Aspirin E.C. 81 MG Tablet PO (07:56)
[2020-09-04] MEDS: metFORMIN HCl 1,000 MG Tablet 1000 MG PO ×2 (07:57→18:02)
[2020-09-04] MEDS: Carbidopa/Levodopa 25/100 Tablet PO ×4 (07:57→19:50)
[2020-09-04 11:06] LABS: Bedside Glucose 211 mg/dL (70-110)
[2020-09-04 14:07] VITALS: BP 160/79; PULSE 76; RESP 18; TEMP 36.6; O2SAT 92
[2020-09-04 16:51] LABS: Bedside Glucose 134 mg/dL (70-110)
[2020-09-04] MEDS: Donepezil HCl 10 MG Tablet PO (19:50)
[2020-09-04] MEDS: Atorvastatin Calcium 40 MG Tablet PO (19:50)
[2020-09-04] MEDS: CARBIDOPA/LEVODOPA CR 50/200 Tablet PO (19:51)
[2020-09-04 21:35] LABS: Bedside Glucose 210 mg/dL (70-110)
[2020-09-05 05:13] LABS: Absolute Lymphocyte Count 1.72 X10^3/uL (0.83-4.51); Absolute Neutrophil Count 7.4 X10^3/uL (2.0-7.7); Basophil# 0.07 X10^3/uL; Basophil% 0.7 % (0-1); Hematocrit 33.7 % (37-47); Hemoglobin 10.5 g/dL (12.0-15.0); Lymphocyte # 1.72 X10^3/ul (4.0); Lymphocyte % 16.8 % (19-41); Mean Corp Hgb Conc 31.2 g/dL (32-36); Mean Corpuscular Hgb 28.3 pg (27.0-32.0); Mean Corpuscular Volume 90.8 fL (81-99); Mean Platelet Vol. 9.6 fl (6.2-12.0); Monocyte# 0.79 X10^3/uL; Monocyte% 7.7 % (0-10); NRBC Flagged by Analyzer 0 % (0-5); Neutrophil # 7.37 X10^3/uL (2.7-7.7); Neutrophil % 72.1 % (47-70); Platelet Count 301 K/mm3 (150-450); RBC Distribution Width CV 13.2 % (11.6-14.6); RBC Distribution Width SD 43.6 fl (35.1-43.9); Red Blood Count 3.71 M/mm3 (4.2-5.4); White Blood Count 10.2 K/mm3 (4.4-11.0)
[2020-09-05 05:27] LABS: Anion Gap 5 (5-15); BUN 23 mg/dL (7-18); BUN/Creat Ratio 39.7 RATIO (10-20); Calcium,Total 9.4 mg/dL (8.5-10.1); Chloride 101 mmol/L (98-107); Creatinine, Serum 0.58 mg/dL (0.55-1.02); EST Glomerular Filtration Rate 108 mL/min (>60); Est Glom Filt Rate - Afr Amer 130 mL/min (>60); Estimated Creatinine Clearance 40.21 ml/min; Glucose 86 mg/dL (74-106); Potassium 3.6 mmol/L (3.5-5.1); Sodium Level 138 mmol/L (136-145)
[2020-09-05 06:30] LABS: Bedside Glucose 76 mg/dL (70-110)
[2020-09-05 06:50] VITALS: BP 134/62; PULSE 80; RESP 16; TEMP 36.9; O2SAT 98
[2020-09-05] MEDS: Enoxaparin 40 MG/0.4 ML Syringe SC (06:51)
[2020-09-05] MEDS: Carbidopa/Levodopa 25/100 Tablet PO ×4 (06:52→21:43)
[2020-09-05] MEDS: hydroCHLOROthiazide 25 MG Tablet PO (06:52)
[2020-09-05] MEDS: Levothyroxine 125 MCG Tablet PO (06:52)
[2020-09-05] MEDS: Losartan Potassium 100 MG Tablet PO (06:52)
[2020-09-05] MEDS: Calcium Carbonate 500 MG Tablet PO ×2 (06:52→17:34)
[2020-09-05] MEDS: Pioglitazone Hydrochloride 30 MG Tablet PO (06:52)
[2020-09-05] MEDS: Venlafaxine XR 150 MG Capsule PO (06:52)
[2020-09-05] MEDS: buPROPion 75 MG Tablet 150 MG PO (06:52)
[2020-09-05] MEDS: Nystatin Powder 15gm Bottle 1 APPLIC TOPICAL ×2 (06:54→17:36)
[2020-09-05] MEDS: metFORMIN HCl 1,000 MG Tablet 1000 MG PO ×2 (08:27→17:34)
[2020-09-05] MEDS: Aspirin E.C. 81 MG Tablet PO (08:27)
--- NOTE | 2020-09-05 09:17 | CASEMGMT ---
Social Work IDT met with patient and brother via conference call for care plan meeting. Discussed patient's progress in therapy. Pt is CGA for transfers, ambulating 30-60 ft with FWW and w/c follow for safety due to shakiness and fall hx, min for bed mobility. Pt is set up for grooming, SBA for UE ADLS, min for LE ADLS, max for toileting tasks, CGA for toilet tx, using 1 and 2# wts on UE. ST to eval this date for possible decrease in cognition. Pt is 1800 gina, cardiac diet, good intake, weight stable. Pt is out of isolation 09/11. Explained [facility] NRD 09/05, EDC 09/12. Provided and explained insurance care plan. The goal is for pt to return to [facility]. Will send updated clinicals to verify return. Will continue to follow. Lakshmi Crawley, ECO INDUSTRIAL DEVELOPMENT CONSULTANT ACTIVATED SLUDGE OPERATOR
[2020-09-05] MEDS: Tuberculin,Purif.prot.deriv. 50 TU/ML Vial 5 ML ID (10:53)
[2020-09-05 11:16] LABS: Bedside Glucose 129 mg/dL (70-110)
[2020-09-05 15:42] VITALS: BP 158/64; PULSE 75; RESP 18; TEMP 36.7; O2SAT 95
[2020-09-05 16:45] LABS: Bedside Glucose 113 mg/dL (70-110)
[2020-09-05] MEDS: Senna/Docusate Sodium 1 Tablet PO (17:34)
[2020-09-05 21:30] LABS: Bedside Glucose 173 mg/dL (70-110)
[2020-09-05] MEDS: Donepezil HCl 10 MG Tablet PO (21:43)
[2020-09-05] MEDS: Atorvastatin Calcium 40 MG Tablet PO (21:43)
[2020-09-05] MEDS: CARBIDOPA/LEVODOPA CR 50/200 Tablet PO (21:44)
[2020-09-06 06:11] VITALS: BP 166/66; PULSE 88; RESP 16; TEMP 36.8; O2SAT 98
[2020-09-06] MEDS: Venlafaxine XR 150 MG Capsule PO (06:13)
[2020-09-06] MEDS: buPROPion 75 MG Tablet 150 MG PO (06:13)
[2020-09-06] MEDS: Carbidopa/Levodopa 25/100 Tablet PO ×4 (06:13→21:10)
[2020-09-06] MEDS: hydroCHLOROthiazide 25 MG Tablet PO (06:14)
[2020-09-06] MEDS: Levothyroxine 125 MCG Tablet PO (06:14)
[2020-09-06] MEDS: Nystatin Powder 15gm Bottle 1 APPLIC TOPICAL ×2 (06:14→16:12)
[2020-09-06] MEDS: Pioglitazone Hydrochloride 30 MG Tablet PO (06:14)
[2020-09-06] MEDS: Senna/Docusate Sodium 1 Tablet PO ×2 (06:14→16:11)
[2020-09-06] MEDS: Losartan Potassium 100 MG Tablet PO (06:14)
[2020-09-06 06:15] LABS: Bedside Glucose 83 mg/dL (70-110)
[2020-09-06] MEDS: Enoxaparin 40 MG/0.4 ML Syringe SC (06:15)
[2020-09-06] MEDS: Calcium Carbonate 500 MG Tablet PO ×2 (06:15→16:11)
[2020-09-06] MEDS: metFORMIN HCl 1,000 MG Tablet 1000 MG PO ×2 (08:23→16:11)
[2020-09-06] MEDS: Aspirin E.C. 81 MG Tablet PO (08:23)
--- NOTE | 2020-09-06 08:56 | MDS.RN ---
Information for the mds was obtained from review of the clinical record, interview of resident, staff, and direct observation of resident's care.
[2020-09-06 10:55] LABS: Bedside Glucose 130 mg/dL (70-110)
--- NOTE | 2020-09-06 14:31 | CASEMGMT ---
Social Work Insurance approved additional days with NRD 09/10 and [facility] likely at review. Sent updated clinicals to [facility] to ensure pt can return. Will continue to follow. JADEN ArguetaW
--- NOTE | 2020-09-06 14:34 | NURSING ---
Resident and family updated on current COVID status on the unit.
[2020-09-06 15:03] VITALS: BP 142/70; PULSE 75; RESP 18; TEMP 36.7; O2SAT 96
--- NOTE | 2020-09-06 15:27 | NURSING ---
R' UPDATED ON COVID STATUS ON UNIT.
[2020-09-06 16:56] LABS: Bedside Glucose 152 mg/dL (70-110)
[2020-09-06 20:36] LABS: Bedside Glucose 219 mg/dL (70-110)
[2020-09-06] MEDS: Donepezil HCl 10 MG Tablet PO (20:47)
[2020-09-06] MEDS: Atorvastatin Calcium 40 MG Tablet PO (20:47)
[2020-09-06] MEDS: CARBIDOPA/LEVODOPA CR 50/200 Tablet PO (21:10)
[2020-09-07 03:30] VITALS: BP 159/57; PULSE 81; RESP 16; TEMP 36.6; O2SAT 94
--- NOTE | 2020-09-07 03:31 | NURSING ---
Patient c/o left knee pain. Patient states that it has hurt me since I fell, and it yousuf wants to give away. Will update Dr. Munoz
[2020-09-07] MEDS: Carbidopa/Levodopa 25/100 Tablet PO ×4 (06:10→22:02)
[2020-09-07] MEDS: Calcium Carbonate 500 MG Tablet PO ×2 (06:10→16:30)
[2020-09-07] MEDS: buPROPion 75 MG Tablet 150 MG PO (06:10)
[2020-09-07] MEDS: Pioglitazone Hydrochloride 30 MG Tablet PO (06:10)
[2020-09-07] MEDS: Enoxaparin 40 MG/0.4 ML Syringe SC (06:10)
[2020-09-07] MEDS: Losartan Potassium 100 MG Tablet PO (06:11)
[2020-09-07] MEDS: Venlafaxine XR 150 MG Capsule PO (06:11)
[2020-09-07] MEDS: Levothyroxine 125 MCG Tablet PO (06:11)
[2020-09-07] MEDS: Senna/Docusate Sodium 1 Tablet PO (06:11)
[2020-09-07] MEDS: hydroCHLOROthiazide 25 MG Tablet PO (06:11)
[2020-09-07] MEDS: Nystatin Powder 15gm Bottle 1 APPLIC TOPICAL ×2 (06:14→16:31)
[2020-09-07 08:33] LABS: Bedside Glucose 61 mg/dL (70-110)
[2020-09-07] MEDS: Aspirin E.C. 81 MG Tablet PO (08:56)
[2020-09-07] MEDS: metFORMIN HCl 1,000 MG Tablet 1000 MG PO ×2 (08:56→16:30)
--- NOTE | 2020-09-07 10:50 | RAD_ITS ---
STUDY: X-RAY - LEFT KNEE REASON FOR EXAM: Female, 74 years old. Resident feels knee is giving out, ANTERIOR PAIN TECHNIQUE: 4 view(s) of the knee. COMPARISON: 10/06/2011. FINDINGS: Status post total knee arthroplasty. Surgical hardware intact/well aligned. No postoperative complications. Vascular calcifications. Minimal swelling. Small joint effusion. RAD/Knee 4 or More Views IMPRESSION: Uncomplicated left knee arthroplasty Minimal swelling with small joint effusion Electronically Signed: Darren Mc DO at 11:07 EST Tel , Service support ,
[2020-09-07 11:11] LABS: Bedside Glucose 185 mg/dL (70-110)
[2020-09-07 15:16] VITALS: BP 159/54; PULSE 65; RESP 18; TEMP 36.8; O2SAT 94
--- NOTE | 2020-09-07 16:32 | CASEMGMT ---
Social Work Left message with Ronnie at [facility] to inquire about pt return. Will await outcome. Lakshmi Crawley, TELEVISION SERVICE ENGINEER ICE CREAM VAN VENDOR
[2020-09-07 16:40] LABS: Bedside Glucose 110 mg/dL (70-110)
[2020-09-07 21:36] LABS: Bedside Glucose 214 mg/dL (70-110)
[2020-09-07] MEDS: Donepezil HCl 10 MG Tablet PO (22:02)
[2020-09-07] MEDS: CARBIDOPA/LEVODOPA CR 50/200 Tablet PO (22:02)
[2020-09-07] MEDS: Atorvastatin Calcium 40 MG Tablet PO (22:02)
[2020-09-08 06:02] VITALS: BP 160/66; PULSE 81; RESP 20; TEMP 36.4; O2SAT 95
[2020-09-08] MEDS: buPROPion 75 MG Tablet 150 MG PO (06:04)
[2020-09-08] MEDS: Calcium Carbonate 500 MG Tablet PO ×2 (06:04→16:49)
[2020-09-08] MEDS: Pioglitazone Hydrochloride 30 MG Tablet PO (06:04)
[2020-09-08] MEDS: Venlafaxine XR 150 MG Capsule PO (06:04)
[2020-09-08] MEDS: Levothyroxine 125 MCG Tablet PO (06:04)
[2020-09-08] MEDS: Senna/Docusate Sodium 1 Tablet PO (06:04)
[2020-09-08] MEDS: Carbidopa/Levodopa 25/100 Tablet PO ×4 (06:05→21:25)
[2020-09-08] MEDS: Nystatin Powder 15gm Bottle 1 APPLIC TOPICAL ×2 (06:06→16:50)
[2020-09-08] MEDS: Losartan Potassium 100 MG Tablet PO (06:08)
[2020-09-08] MEDS: Enoxaparin 40 MG/0.4 ML Syringe SC (06:08)
[2020-09-08] MEDS: hydroCHLOROthiazide 25 MG Tablet PO (06:08)
[2020-09-08 06:25] LABS: Bedside Glucose 80 mg/dL (70-110)
[2020-09-08] MEDS: metFORMIN HCl 1,000 MG Tablet 1000 MG PO ×2 (08:08→16:49)
[2020-09-08] MEDS: Aspirin E.C. 81 MG Tablet PO (08:08)
[2020-09-08 11:21] LABS: Bedside Glucose 124 mg/dL (70-110)
[2020-09-08 16:40] LABS: Bedside Glucose 169 mg/dL (70-110)
[2020-09-08 19:32] VITALS: BP 160/64; PULSE 71; RESP 18; TEMP 36.5; O2SAT 90
[2020-09-08] MEDS: Atorvastatin Calcium 40 MG Tablet PO (21:26)
[2020-09-08] MEDS: CARBIDOPA/LEVODOPA CR 50/200 Tablet PO (21:26)
[2020-09-08] MEDS: Donepezil HCl 10 MG Tablet PO (21:26)
[2020-09-08 21:36] LABS: Bedside Glucose 190 mg/dL (70-110)
[2020-09-09 06:22] VITALS: BP 195/66; PULSE 68; RESP 16; TEMP 36.2; O2SAT 92
[2020-09-09] MEDS: Senna/Docusate Sodium 1 Tablet PO ×2 (06:25→16:39)
[2020-09-09] MEDS: Carbidopa/Levodopa 25/100 Tablet PO ×4 (06:25→20:48)
[2020-09-09] MEDS: Venlafaxine XR 150 MG Capsule PO (06:25)
[2020-09-09] MEDS: Calcium Carbonate 500 MG Tablet PO ×2 (06:25→16:40)
[2020-09-09] MEDS: Enoxaparin 40 MG/0.4 ML Syringe SC (06:25)
[2020-09-09] MEDS: Pioglitazone Hydrochloride 30 MG Tablet PO (06:25)
[2020-09-09] MEDS: hydroCHLOROthiazide 25 MG Tablet PO (06:26)
[2020-09-09] MEDS: buPROPion 75 MG Tablet 150 MG PO (06:26)
[2020-09-09] MEDS: Losartan Potassium 100 MG Tablet PO (06:26)
[2020-09-09] MEDS: Levothyroxine 125 MCG Tablet PO (06:27)
[2020-09-09] MEDS: Nystatin Powder 15gm Bottle 1 APPLIC TOPICAL ×2 (06:30→16:40)
[2020-09-09 06:36] LABS: Bedside Glucose 100 mg/dL (70-110)
[2020-09-09 06:36] LABS: Bedside Glucose 66 mg/dL (70-110)
[2020-09-09] MEDS: Aspirin E.C. 81 MG Tablet PO (07:56)
[2020-09-09] MEDS: metFORMIN HCl 1,000 MG Tablet 1000 MG PO ×2 (07:56→16:39)
[2020-09-09 11:26] LABS: Bedside Glucose 136 mg/dL (70-110)
[2020-09-09 15:49] VITALS: BP 155/68; PULSE 68; RESP 16; TEMP 36.9; O2SAT 95
[2020-09-09 16:50] LABS: Bedside Glucose 130 mg/dL (70-110)
[2020-09-09] MEDS: Donepezil HCl 10 MG Tablet PO (20:48)
[2020-09-09] MEDS: CARBIDOPA/LEVODOPA CR 50/200 Tablet PO (20:48)
[2020-09-09] MEDS: Atorvastatin Calcium 40 MG Tablet PO (20:48)
[2020-09-09 21:25] LABS: Bedside Glucose 268 mg/dL (70-110)
[2020-09-10 02:49] VITALS: BP 173/66; PULSE 78; RESP 16; TEMP 36.7; O2SAT 95
[2020-09-10] MEDS: Acetaminophen 500 MG Tablet 1000 MG PO (02:51)
[2020-09-10] MEDS: Enoxaparin 40 MG/0.4 ML Syringe SC (05:09)
[2020-09-10] MEDS: Polyethylene Glycol 3350 17 GM PACKET PO (05:09)
[2020-09-10] MEDS: Carbidopa/Levodopa 25/100 Tablet PO ×4 (05:09→20:21)
[2020-09-10] MEDS: Senna/Docusate Sodium 1 Tablet PO ×2 (05:09→17:29)
[2020-09-10] MEDS: buPROPion 75 MG Tablet 150 MG PO (05:09)
[2020-09-10] MEDS: Venlafaxine XR 150 MG Capsule PO (05:10)
[2020-09-10] MEDS: Pioglitazone Hydrochloride 30 MG Tablet PO (05:10)
[2020-09-10] MEDS: Levothyroxine 125 MCG Tablet PO (05:10)
[2020-09-10] MEDS: Losartan Potassium 100 MG Tablet PO (05:10)
[2020-09-10] MEDS: hydroCHLOROthiazide 25 MG Tablet PO (05:10)
[2020-09-10] MEDS: Calcium Carbonate 500 MG Tablet PO ×2 (05:10→17:29)
[2020-09-10] MEDS: Nystatin Powder 15gm Bottle 1 APPLIC TOPICAL ×2 (05:14→16:05)
[2020-09-10 06:35] LABS: Bedside Glucose 88 mg/dL (70-110)
[2020-09-10] MEDS: metFORMIN HCl 1,000 MG Tablet 1000 MG PO ×2 (08:02→17:29)
[2020-09-10] MEDS: Aspirin E.C. 81 MG Tablet PO (08:02)
[2020-09-10 11:15] LABS: Bedside Glucose 107 mg/dL (70-110)
--- NOTE | 2020-09-10 14:08 | CASEMGMT ---
Social Work Received voicemail from Ronnie at [facility] requesting updated therapy notes. The team is reviewing pt information to determine if she needs to go to [facility] side for additional assistance before returning to [place] or if they can have [facility] therapy in [place] to continue working with pt. Updated notes sent. Attempted to return phone call but voicemail box was full. Will continue to follow. JADEN ArguetaW
[2020-09-10 14:35] VITALS: BP 148/51; PULSE 77; RESP 24; TEMP 36.2; O2SAT 93
[2020-09-10] MEDS: Bisacodyl 10 MG Suppository RECTAL (16:03)
[2020-09-10 17:15] LABS: Bedside Glucose 97 mg/dL (70-110)
--- NOTE | 2020-09-10 18:44 | NURSING ---
dr kirkpatrick notified of pts AM Blood sugars running low, new order to decrease lantus QHS
--- NOTE | 2020-09-10 20:15 | PCM.DC ---
- Discharge Diagnoses Current Active Problems: Current Active and Chronic Problems (Last Reviewed 08/21/20 @ 15:10 by Arleen Davila) Multiple falls (Acute) Debility (Acute) Hyperlipemia (Chronic) Left hip pain (Acute) Coronary artery disease (Chronic) Hypertension (Chronic) Diabetes mellitus (Chronic) Hypothyroidism (Chronic) Allergic rhinitis (Chronic) Hypokalemia (Chronic) Depression (Chronic) Dementia, unspecified, without behavioral disturbance (Chronic) Laceration of left elbow (Acute) Parkinsons disease (Chronic) You will use the following diet at home:: No restrictions, Regular Your food should be the consistency of: Regular Your liquids should be the consistency of: Regular/Thin Discharge Activity: Return to Normal Activity, May Shower, Use Walker Weight Bearing Status: Weight bearing as tolerated Call your doctor if you observe: Fever of 101 or Higher, Inability to urinate, Inability to have a bowel movement, Shortness of breath, Chest pain, Uncontrolled pain Allergies/Adverse Reactions: Allergies Penicillins Allergy (Verified 08/22/20 18:54) Rash hydrocodone Adverse Reaction (Verified 08/22/20 18:54) hallucinations Medications to take at Discharge Aspirin [Aspir 81] 81 mg PO DAILY 03/28/19 Atorvastatin Calcium [Lipitor] 40 mg PO QHS 03/28/19 Calcium Carbonate [Calcium] 600 mg PO BID 03/28/19 Levothyroxine [Synthroid] 125 mcg PO DAILY 03/28/19 Metformin HCl 1,000 mg PO BID 03/28/19 Pioglitazone [Actos] 30 mg PO DAILY 03/28/19 Venlafaxine HCl [Effexor Xr] 150 mg PO DAILY 03/28/19 bisacodyl 5 mg tablet,delayed release 10 mg PO BID PRN tab 12/15/19 insulin glargine 100 unit/mL subcutaneous solution 20 unit SC QHS ml 12/15/19 Ergocalciferol [Vitamin D] 50,000 unit PO SA 08/19/20 Olopatadine HCl [Patanol] 1 drp EACH EYE BREAKFAST 08/19/20 Valsartan/Hydrochlorothiazide [Valsartan-Hctz 320-25 mg Tab] 1 ea PO DAILY 08/19/20 bupropion HCl 75 mg tablet 150 mg PO DAILY tab 08/21/20 Aspirin E.C. [Ecotrin] 81 mg PO DAILY@0800 08/28/20 Calcium Carbonate [Calcium] 600 mg PO BID 08/28/20 Carbidopa/Levodopa 25/100 [Sinemet 25/100] 2 tab PO 4X/DAY 08/28/20 Donepezil HCl 10 mg PO QHS 08/28/20 Nystatin [Mycostatin] 1 applic TOPICAL BID 08/28/20 Acetaminophen [Tylenol] 1,000 mg PO Q6H PRN PRN tablet 09/10/20 Carbidopa/Levodopa 50/200 [Sinemet CR 50/200] 1 tablet PO QHS tablet.sa 09/10/20 Nystatin Powder [Mycostatin Powder] 1 applic TOPICAL BID bottle 09/10/20 Primary Care Physician: Messi Valencia MD [Primary Care Provider] - Please follow up with your Primary Care Physician in: 1 week. Test Results: Test results from this visit will be discussed in further detail at your follow-up appointment, if applicable. Proposed Discharge Date: 09/13/20
--- NOTE | 2020-09-10 20:17 | DS.PCM_ITS ---
Discharge Date and Diagnosis - Problem List Patient Problems: Active and Suspected Problems (Last Reviewed 08/21/20 @ 15:10 by Arleen Davila) Multiple falls (Acute) Debility (Acute) Left hip pain (Acute) Laceration of left elbow (Acute) Date of Admission: 08/28/20 Date of Discharge: 09/13/20 - Primary Discharge Diagnosis Acute Problems: Active Problems (Last Reviewed 08/21/20 @ 15:10 by Arleen Davila) Multiple falls (Acute) Debility (Acute) Left hip pain (Acute) Laceration of left elbow (Acute) - Secondary Discharge Diagnosis Chronic Problems: Chronic Problems (Last Reviewed 08/21/20 @ 15:10 by Arleen Davila) Hyperlipemia (Chronic) Coronary artery disease (Chronic) Hypertension (Chronic) Diabetes mellitus (Chronic) Hypothyroidism (Chronic) Allergic rhinitis (Chronic) Hypokalemia (Chronic) Depression (Chronic) Dementia, unspecified, without behavioral disturbance (Chronic) Type 2 diabetes mellitus (Chronic) Mixed hyperlipidemia (Chronic) Essential hypertension (Chronic) Atherosclerotic heart disease of [place] coronary artery without angina pectoris (Chronic) Mild Parkinsons disease (Chronic) Basal cell carcinoma of right cheek (Chronic) Hospital Course and Treatment Imaging Results: 08/29/20 11:01 Diet: Cardiac: Calorie-Controlled Food consistency:: Regular Liquid Consistency:: Regular/Thin Is pt able to select menu?: Yes How many daily calories?: 1800 calorie Clinical Impression(s) from Imaging Studies Knee X-Ray 09/07/20 10:50 IMPRESSION: Uncomplicated left knee arthroplasty Minimal swelling with small joint effusion Electronically Signed: Darren Mc DO at 11:07 EST Tel , Service support , Labs (Last 48 Hours) 09/08/20 09/09/20 09/09/20 21:23 06:04 06:29 POC Glucose 190 H 66 L 100 09/09/20 09/09/20 09/09/20 11:17 16:46 20:46 POC Glucose 136 H 130 H 268 H 09/10/20 09/10/20 09/10/20 06:14 11:10 16:25 POC Glucose 88 107 97 Microbiology 09/10/20 11:45 Nasal Secretion SARS-CoV-2 Antigen (Rapid) - Final Operations: None Procedures: None Summary of Care Provided: The patient is a 74 year old Female with below past medical history significant for Parkinson Disease, hospitalized for frequent falls, admitted to TCU with debility, here for rehabilitation, strengthening, prior to disposition determination. [facility]charge to [facility], Home Health Care PT/OT/ST. Patient Problems: Active and Suspected Problems (Last Reviewed 08/21/20 @ 15:10 by Arleen Davila) Multiple falls (Acute) Debility (Acute) Left hip pain (Acute) Laceration of left elbow (Acute) - Physical Exam Vitals/I&O's: Vital Signs Temp Pulse Resp BP Pulse Ox 97.2 F L 77 24 H 148/51 H 93 09/10/20 14:35 09/10/20 14:35 09/10/20 14:35 09/10/20 14:35 09/10/20 14:35 Oxygen Delivery Method Room Air Weight: 105.829 kg Body Mass Index (BMI) 41.0 Finger Stick Blood Glucose 176 Intake and Output for Last 24 Hours 09/08/20 09/09/20 09/10/20 23:59 23:59 23:59 Intake Total 660 / 660 500 / 500 480 / 480 Balance 660 / 660 500 / 500 480 / 480 Microbiology Past 72 Hours 09/10/20 11:45 Nasal Secretion SARS-CoV-2 Antigen (Rapid) - Final Laboratory Results 09/09/20 20:46: POC Glucose 268 H 09/10/20 06:14: POC Glucose 88 09/10/20 11:10: POC Glucose 107 09/10/20 16:25: POC Glucose 97 Current Medications Acetaminophen (Acetaminophen 500 Mg Tablet) 1,000 mg PO Q6H PRN PRN PRN Reason: Pain Score 1-10 Last Admin: 09/10/20 02:51 Dose: 1,000 mg Documented by: Aspirin (Aspirin E.C. 81 Mg Tablet) 81 mg PO DAILY@0800 [facility] Last Admin: 09/10/20 08:02 Dose: 81 mg Documented by: Atorvastatin Calcium (Atorvastatin Calcium 40 Mg Tablet) 40 mg PO QHS [facility] Last Admin: 09/09/20 20:48 Dose: 40 mg Documented by: Bisacodyl (Bisacodyl 10 Mg Suppository) 10 mg RECTAL DAILY PRN PRN Reason: Constipation Last Admin: 09/10/20 16:03 Dose: 10 mg Documented by: Bupropion HCl (Bupropion 75 Mg Tablet) 150 mg PO DAILY [facility] Last Admin: 09/10/20 05:09 Dose: 150 mg Documented by: Calcium Carbonate (Calcium Carbonate 500 Mg Tablet) 500 mg PO BID [facility] Last Admin: 09/10/20 17:29 Dose: 500 mg Documented by: Carbidopa/Levodopa (Carbidopa/Levodopa 25/100 Tablet) 2 tablet PO 0700,1100,1600,2200 [facility] Last Admin: 09/10/20 15:57 Dose: 2 tablet Documented by: Carbidopa/Levodopa (Carbidopa/Levodopa Cr 50/200 Tablet) 1 tablet PO QHS [facility] Last Admin: 09/09/20 20:48 Dose: 1 tablet Documented by: Donepezil HCl (Donepezil Hcl 10 Mg Tablet) 10 mg PO QHS [facility] Last Admin: 09/09/20 20:48 Dose: 10 mg Documented by: Enoxaparin Sodium (Enoxaparin 40 Mg/0.4 Ml Syringe) 40 mg SC DAILY@0600 [facility] Last Admin: 09/10/20 05:09 Dose: 40 mg Documented by: Ergocalciferol (Ergocalciferol 50,000 Unit Capsule) 50,000 unit PO Sa@1000 [facility] Last Admin: 09/08/20 10:26 Dose: 50,000 unit Documented by: Hydrochlorothiazide (Hydrochlorothiazide 25 Mg Tablet) 25 mg PO DAILY [facility] Last Admin: 09/10/20 05:10 Dose: 25 mg Documented by: Insulin Glargine (Insulin Glargine 100 Units/Ml Pen) [facility] Levothyroxine Sodium (Levothyroxine 125 Mcg Tablet) 125 mcg PO DAILY [facility] Last Admin: 09/10/20 05:10 Dose: 125 mcg Documented by: Losartan Potassium (Losartan Potassium 100 Mg Tablet) 100 mg PO DAILY [facility] Last Admin: 09/10/20 05:10 Dose: 100 mg Documented by: Magnesium Hydroxide (Magnesium Hydroxide 30 Ml Udc) 30 ml PO DAILY PRN PRN Reason: Constipation Metformin HCl (Metformin Hcl 1,000 Mg Tablet) 1,000 mg PO BIDCM [facility] Last Admin: 09/10/20 17:29 Dose: 1,000 mg Documented by: Nystatin (Nystatin Powder 15gm Bottle) 1 applic TOPICAL BID [facility]; Protocol Last Admin: 09/10/20 16:05 Dose: 1 applicatio Documented by: Pioglitazone HCl (Pioglitazone Hydrochloride 30 Mg Tablet) 30 mg PO DAILY [facility] Last Admin: 09/10/20 05:10 Dose: 30 mg Documented by: Polyethylene Glycol (Polyethylene Glycol 3350 17 Gm Packet) 17 gm PO DAILY [facility] Last Admin: 09/10/20 05:09 Dose: 17 gm Documented by: Senna/Docusate Sodium (Senna/Docusate Sodium 1 Tablet) 1 tablet PO BID [facility] Last Admin: 09/10/20 17:29 Dose: 1 tablet Documented by: Venlafaxine HCl (Venlafaxine Xr 150 Mg Capsule) 150 mg PO DAILY [facility] Last Admin: 09/10/20 05:10 Dose: 150 mg Documented by: Discharge Diet: No Restrictions Discharge Activity: Return to Normal Activity, May Shower, Use Walker Weight Bearing Status: Weight bearing as tolerated Call your doctor if you observe: Fever of 101 or Higher, Inability to urinate, Inability to have a bowel movement, Shortness of breath, Chest pain, Uncontrolled pain Home Medications: Medications to take at Discharge Aspirin [Aspir 81] 81 mg PO DAILY 03/28/19 Atorvastatin Calcium [Lipitor] 40 mg PO QHS 03/28/19 Calcium Carbonate [Calcium] 600 mg PO BID 03/28/19 Levothyroxine [Synthroid] 125 mcg PO DAILY 03/28/19 Metformin HCl 1,000 mg PO BID 03/28/19 Pioglitazone [Actos] 30 mg PO DAILY 03/28/19 Venlafaxine HCl [Effexor Xr] 150 mg PO DAILY 03/28/19 bisacodyl 5 mg tablet,delayed release 10 mg PO BID PRN tab 12/15/19 insulin glargine 100 unit/mL subcutaneous solution 20 unit SC QHS ml 12/15/19 Ergocalciferol [Vitamin D] 50,000 unit PO SA 08/19/20 Olopatadine HCl [Patanol] 1 drp EACH EYE BREAKFAST 08/19/20 Valsartan/Hydrochlorothiazide [Valsartan-Hctz 320-25 mg Tab] 1 ea PO DAILY 08/19/20 bupropion HCl 75 mg tablet 150 mg PO DAILY tab 08/21/20 Aspirin E.C. [Ecotrin] 81 mg PO DAILY@0800 08/28/20 Calcium Carbonate [Calcium] 600 mg PO BID 08/28/20 Carbidopa/Levodopa 25/100 [Sinemet 25/100] 2 tab PO 4X/DAY 08/28/20 Donepezil HCl 10 mg PO QHS 08/28/20 Nystatin [Mycostatin] 1 applic TOPICAL BID 08/28/20 Acetaminophen [Tylenol] 1,000 mg PO Q6H PRN PRN tablet 09/10/20 Carbidopa/Levodopa 50/200 [Sinemet CR 50/200] 1 tablet PO QHS tablet.sa 09/10/20 Nystatin Powder [Mycostatin Powder] 1 applic TOPICAL BID bottle 09/10/20 Primary Care Physician: Messi Valencia MD [Primary Care Provider] - Please follow up with your Primary Care Physician in: 1 week. Disposition: Asstd Living/Non-Skill NH Minutes spent on discharge:: 35 Patient Condition:: Stable Medical Necessity - Tobacco Use Smoking Status: Never smoker Tobacco Use: Non-smoker Meaningful Use Info Meaningful Use Diagnoses (Choose all that apply): None applicable
--- NOTE | 2020-09-10 20:20 | TREXTCAR_ITS ---
- Diet 08/29/20 11:01 Diet: Cardiac: Calorie-Controlled Food consistency:: Regular Liquid Consistency:: Regular/Thin Is pt able to select menu?: Yes How many daily calories?: 1800 calorie - Routine Orders/Code Status Suppository Type: Dulcolax 10mg Suppository Frequency: Daily PRN Code Status: DNRCC-A - No intubation. - Wound(s) Rt abdominal fold Wound Type: Moisture related opening Left elbow Wound Type: Abrasion Dressing Change: Dry Sterile Dressing - Therapies Weight Bearing: Weight bearing as tolerated Extremity Affected:: Bilateral Lower Physical Therapy: Eval and Treat Occupational Therapy: Eval and Treat Speech Therapy: Eval and Treat - Problem/Diagnosis (1) Left hip pain Status: Acute (2) Coronary artery disease Status: Chronic (3) Hypertension Status: Chronic (4) Diabetes mellitus Status: Chronic (5) Hypothyroidism Status: Chronic (6) Allergic rhinitis Status: Chronic (7) Hypokalemia Status: Chronic (8) Depression Status: Chronic (9) Multiple falls Status: Acute (10) Debility Status: Acute (11) Hyperlipemia Status: Chronic (12) Parkinsons disease Status: Chronic (13) Dementia, unspecified, without behavioral disturbance Status: Chronic (14) Laceration of left elbow Status: Acute - Allergies/Procedures Done in Hospital Allergies/Adverse Reactions: Allergies Penicillins Allergy (Verified 08/22/20 18:54) Rash hydrocodone Adverse Reaction (Verified 08/22/20 18:54) hallucinations - Type of Care/Length of Stay Estimated LOS: More Than 30 Days Type of Care Needed: [facility]/Assisted Living Rehab Potential: Fair Prognosis: Fair - Additional Orders/Day of Discharge Day of Discharge: 09/13/20 - Dietary and Speech Recommendations Dietitian Recommendations/Changes: Will continue 1800 gina Cardiac diet d/t pmhx - Follow Up Care Primary Care Physician: Messi Valencia MD [Primary Care Provider] - Please follow up with your Primary Care Physician in: 1 week.
[2020-09-10] MEDS: CARBIDOPA/LEVODOPA CR 50/200 Tablet PO (20:21)
[2020-09-10] MEDS: Atorvastatin Calcium 40 MG Tablet PO (20:22)
[2020-09-10] MEDS: Donepezil HCl 10 MG Tablet PO (20:22)
[2020-09-10 21:31] LABS: Bedside Glucose 113 mg/dL (70-110)
[2020-09-11 04:44] VITALS: BP 167/80; PULSE 78; RESP 16; TEMP 36.4; O2SAT 95
[2020-09-11] MEDS: buPROPion 75 MG Tablet 150 MG PO (04:46)
[2020-09-11] MEDS: Levothyroxine 125 MCG Tablet PO (04:46)
[2020-09-11] MEDS: Carbidopa/Levodopa 25/100 Tablet PO ×4 (04:46→21:21)
[2020-09-11] MEDS: Enoxaparin 40 MG/0.4 ML Syringe SC (04:47)
[2020-09-11] MEDS: Pioglitazone Hydrochloride 30 MG Tablet PO (04:47)
[2020-09-11] MEDS: Venlafaxine XR 150 MG Capsule PO (04:47)
[2020-09-11] MEDS: Calcium Carbonate 500 MG Tablet PO ×2 (04:47→16:30)
[2020-09-11] MEDS: Losartan Potassium 100 MG Tablet PO (04:47)
[2020-09-11] MEDS: Nystatin Powder 15gm Bottle 1 APPLIC TOPICAL ×2 (04:48→16:31)
[2020-09-11] MEDS: hydroCHLOROthiazide 25 MG Tablet PO (04:48)
[2020-09-11 06:15] LABS: Bedside Glucose 161 mg/dL (70-110)
[2020-09-11] MEDS: metFORMIN HCl 1,000 MG Tablet 1000 MG PO ×2 (08:12→16:30)
[2020-09-11] MEDS: Aspirin E.C. 81 MG Tablet PO (08:12)
[2020-09-11 10:46] LABS: Bedside Glucose 167 mg/dL (70-110)
--- NOTE | 2020-09-11 13:01 | CASEMGMT ---
Social Work Spoke with Ronnie at [facility] and he expressed concerns about pt's gait as reason for her to [facility] before returning to [place]. Explained SW spoke with pt the day prior and provided that option, but pt declined and wants to go to [place]. IDT does not have concerns with [place]. Inquired [facility] PT/OT - he stated [facility] therapists can provide therapy under Part B. SW referred to [facility] for FWW. No other issues noted. Brother to transport pt home. Plan: DC to [facility] 09/13 JADEN ArguetaW
[2020-09-11 15:35] VITALS: BP 157/78; PULSE 75; RESP 16; TEMP 36.6; O2SAT 93
[2020-09-11 16:15] LABS: Bedside Glucose 116 mg/dL (70-110)
[2020-09-11] MEDS: Donepezil HCl 10 MG Tablet PO (21:21)
[2020-09-11] MEDS: CARBIDOPA/LEVODOPA CR 50/200 Tablet PO (21:22)
[2020-09-11] MEDS: Atorvastatin Calcium 40 MG Tablet PO (21:22)
[2020-09-11 21:25] LABS: Bedside Glucose 158 mg/dL (70-110)
[2020-09-12 05:45] LABS: Absolute Lymphocyte Count 1.99 X10^3/uL (0.83-4.51); Absolute Neutrophil Count 6.4 X10^3/uL (2.0-7.7); Basophil# 0.05 X10^3/uL; Basophil% 0.5 % (0-1); Eosinophil# 0.22 X10^3/uL; Eosinophils% 2.3 % (0-5); Hematocrit 35.6 % (37-47); Lymphocyte # 1.99 X10^3/ul (4.0); Lymphocyte % 20.9 % (19-41); Mean Corp Hgb Conc 30.9 g/dL (32-36); Mean Corpuscular Hgb 27.7 pg (27.0-32.0); Mean Corpuscular Volume 89.7 fL (81-99); Mean Platelet Vol. 9.3 fl (6.2-12.0); Monocyte# 0.75 X10^3/uL; Monocyte% 7.9 % (0-10); NRBC Flagged by Analyzer 0 % (0-5); Neutrophil # 6.42 X10^3/uL (2.7-7.7); Neutrophil % 67.6 % (47-70); Platelet Count 355 K/mm3 (150-450); RBC Distribution Width CV 13.2 % (11.6-14.6); RBC Distribution Width SD 43.7 fl (35.1-43.9); Red Blood Count 3.97 M/mm3 (4.2-5.4); White Blood Count 9.5 K/mm3 (4.4-11.0)
[2020-09-12 06:06] LABS: Anion Gap 6 (5-15); BUN 22 mg/dL (7-18); BUN/Creat Ratio 37.7 RATIO (10-20); Chloride 99 mmol/L (98-107); Creatinine, Serum 0.58 mg/dL (0.55-1.02); EST Glomerular Filtration Rate 107 mL/min (>60); Est Glom Filt Rate - Afr Amer 129 mL/min (>60); Estimated Creatinine Clearance 40.21 ml/min; Glucose 121 mg/dL (74-106); Potassium 3.5 mmol/L (3.5-5.1); Sodium Level 136 mmol/L (136-145)
[2020-09-12 06:21] LABS: Bedside Glucose 131 mg/dL (70-110)
[2020-09-12 06:28] VITALS: BP 167/59; PULSE 72; RESP 16; TEMP 36.6; O2SAT 94
[2020-09-12] MEDS: Senna/Docusate Sodium 1 Tablet PO (06:30)
[2020-09-12] MEDS: Calcium Carbonate 500 MG Tablet PO ×2 (06:30→16:28)
[2020-09-12] MEDS: Levothyroxine 125 MCG Tablet PO (06:31)
[2020-09-12] MEDS: Enoxaparin 40 MG/0.4 ML Syringe SC (06:31)
[2020-09-12] MEDS: Losartan Potassium 100 MG Tablet PO (06:31)
[2020-09-12] MEDS: Carbidopa/Levodopa 25/100 Tablet PO ×4 (06:31→21:01)
[2020-09-12] MEDS: Polyethylene Glycol 3350 17 GM PACKET PO (06:31)
[2020-09-12] MEDS: buPROPion 75 MG Tablet 150 MG PO (06:31)
[2020-09-12] MEDS: hydroCHLOROthiazide 25 MG Tablet PO (06:33)
[2020-09-12] MEDS: Pioglitazone Hydrochloride 30 MG Tablet PO (06:33)
[2020-09-12] MEDS: Venlafaxine XR 150 MG Capsule PO (06:34)
[2020-09-12] MEDS: Nystatin Powder 15gm Bottle 1 APPLIC TOPICAL ×2 (06:39→16:29)
[2020-09-12] MEDS: Aspirin E.C. 81 MG Tablet PO (08:30)
[2020-09-12] MEDS: metFORMIN HCl 1,000 MG Tablet 1000 MG PO ×2 (08:30→16:28)
[2020-09-12 10:41] LABS: Bedside Glucose 180 mg/dL (70-110)
[2020-09-12 13:59] VITALS: BP 159/65; PULSE 76; RESP 16; TEMP 36.4; O2SAT 93
[2020-09-12 16:50] LABS: Bedside Glucose 171 mg/dL (70-110)
[2020-09-12] MEDS: Atorvastatin Calcium 40 MG Tablet PO (21:01)
[2020-09-12] MEDS: CARBIDOPA/LEVODOPA CR 50/200 Tablet PO (21:01)
[2020-09-12] MEDS: Donepezil HCl 10 MG Tablet PO (21:01)
[2020-09-12 21:16] LABS: Bedside Glucose 158 mg/dL (70-110)
[2020-09-13 06:25] LABS: Bedside Glucose 104 mg/dL (70-110)
[2020-09-13 06:29] VITALS: BP 178/73; PULSE 90; RESP 16; TEMP 35.9; O2SAT 95
[2020-09-13] MEDS: Carbidopa/Levodopa 25/100 Tablet PO ×2 (06:31→11:06)
[2020-09-13] MEDS: buPROPion 75 MG Tablet 150 MG PO (06:31)
[2020-09-13] MEDS: Enoxaparin 40 MG/0.4 ML Syringe SC (06:31)
[2020-09-13] MEDS: Levothyroxine 125 MCG Tablet PO (06:32)
[2020-09-13] MEDS: Pioglitazone Hydrochloride 30 MG Tablet PO (06:32)
[2020-09-13] MEDS: hydroCHLOROthiazide 25 MG Tablet PO (06:32)
[2020-09-13] MEDS: Venlafaxine XR 150 MG Capsule PO (06:32)
[2020-09-13] MEDS: Losartan Potassium 100 MG Tablet PO (06:32)
[2020-09-13] MEDS: Calcium Carbonate 500 MG Tablet PO (06:32)
[2020-09-13] MEDS: Nystatin Powder 15gm Bottle 1 APPLIC TOPICAL (06:33)
[2020-09-13] MEDS: Aspirin E.C. 81 MG Tablet PO (08:10)
[2020-09-13] MEDS: metFORMIN HCl 1,000 MG Tablet 1000 MG PO (08:11)
[2020-09-13 09:25] VITALS: PULSE 85; RESP 18; O2SAT 92
[2020-09-13 12:38] VITALS: BP 152/50; PULSE 85; RESP 16; TEMP 36.2; O2SAT 92
== END 2020-09-13 11:15 | disposition home health service (06) | DRG 950 ==
PROVIDERS: Admitting Provider Family Medicine Geriatric Medicine; PCP Family Medicine; Visit Provider Family Medicine Geriatric Medicine
DX: S51.012D Laceration without foreign body of left elbow, subsequent encounter (principal); R29.6 Repeated falls; W19.XXXD Unspecified fall, subsequent encounter; F02.80 Dementia in other diseases classified elsewhere, unspecified severity, without behavioral disturbance, psychotic disturbance, mood disturbance, and anxiety; G20 Parkinson's disease; F32.9 Major depressive disorder, single episode, unspecified; E03.9 Hypothyroidism, unspecified; E11.9 Type 2 diabetes mellitus without complications; I10 Essential (primary) hypertension; I25.10 Atherosclerotic heart disease of native coronary artery without angina pectoris; B35.4 Tinea corporis; E78.2 Mixed hyperlipidemia; M19.90 Unspecified osteoarthritis, unspecified site; M25.552 Pain in left hip
CPT/HCPCS: 36415; 73564; 80048; 82962; 85025; 87426; 87635; 92507; 92523; 97110; 97116; 97162; 97166; 97530; 97535; 97542; 97802; U0003

== ENCOUNTER 2020-10-16 16:30 | Inpatient (IN) | payer MEDICARE, MEDICAID, SELFPAY ==
[2020-10-16] VITALS (9 sets, daily range): BP systolic 147–183; BP diastolic 56–94; PULSE 65–89; RESP 16–19; TEMP 36–36.5; O2SAT 96–99; BMI 40.3; BMI 37.2; BMI 37.3
--- NOTE | 2020-10-16 16:54 | EKG12_ITS ---
Test Reason : CONFUSED Blood Pressure : / mmHG Vent. Rate : 071 BPM Atrial Rate : 071 BPM P-R Int : 164 ms QRS Dur : 082 ms QT Int : 388 ms P-R-T Axes : 010 018 009 degrees QTc Int : 421 ms Somatic vs. Motion Artifact Normal sinus rhythm with sinus arrhythmia Confirmed by MARLO MCNALLY, JOANN ([id number]), news assignment editor RIP ROONEY ([id number]) on 10/18/2020 1:51:16 PM Referred By: BARBRA Confirmed By:JOANN SELLERS MD
--- NOTE | 2020-10-16 16:57 | ED.DCSUM_ITS ---
- ER Visit Summary Date of Service: 10/16/20 Chief Complaint: Shaking History of Present Illness: The patient is a 74 F history of insulin-dependent diabetes, hypertension high cholesterol. Prior cholecystectomy and 2 knee replacements. Reportedly patient was sent in from extended care facility today because she had nausea vomiting x1 and reportedly confused. She herself though does not seem confused. She does admit that she threw up once today. She denies any fevers. She denies any headache, chest pain or shortness of breath. She denies any abdominal pain, diarrhea or dysuria. States she had a normal bowel movement yesterday. Physical Examination: Well-appearing older female. Vital signs are stable. Pulse ox 9 9% on oxygen. HEENT exam unremarkable atraumatic. Pupils round reactive laser motions are intact. No facial droop. Normal speech. Moist mucous membranes. Neck nontender no lymphadenopathy no meningismus. Lungs clear to auscultation bilaterally. Heart regular rhythm rate about 70 no murmur. Abdomen soft nontender normal bowel sounds no peritoneal signs. Patient moving all 4 extremities. No significant edema. No tenderness. Normal range of motion. Normal rehabilitation nurse strength. Normal dorsi plantarflexion. Neurologically patient is awake and alert. She is answering her own questions. She knew it was 2020 when I gave her different years to pick from. She knew the president night states he was recently elected. She thought the day of the week was Thursday but then when I told her it was Thursday she said all that is correct she has no focal motor deficits. Test Results: EKG normal sinus rhythm rate of 71 no acute abnormality. CBC white count 1.5 hemoglobin 10.8 which is patient's baseline. Chemistries gap of 4 glucose 63 it was rechecked was 65 BUN of 27 creatinine 0.54 liver enzymes normal. UA negative. COVID-19 negative. Blood cultures x2 pending. Chest x- ray portable 1 view shows no acute abnormality read both by myself and radiologist. CT of the brain with and without IV contrast showed old lacunar infarcts but no acute abnormality. No bleed or mass. Emergency department around 6:25 PM the patient had acute tonic-clonic seizure was given 1 dose of Ativan and the seizure stopped. Emergency Department Course and Treatment: Older female from a fpc sent in for confusion. Benign exam. Labs are being obtained. Along with a chest x-ray. Treatment Plan: Patient will be admitted and started on IV Keppra for the acute seizure. She was also given 1 mg of IV Ativan when she was having active seizure. And previously a liter of fluid. Hospitalist is on page. Patient also be given half an amp of D50 for the low blood sugar. Disposition: Admit to the PCU for new onset seizure Impression: New onset seizure History of insulin-dependent diabetes Mild dehydration This note was generated with [employer] dictation software. It may contain incorrect words, spelling, and punctuation that were not noted in review of the chart prior to signing ED Disposition - Plan for ED Patient:
[2020-10-16] MEDS: 0.9% Normal Saline 1,000 ML 1000 ML IV (17:26)
[2020-10-16 17:37] LABS: Absolute Lymphocyte Count 1.04 X10^3/uL (0.83-4.51); Absolute Neutrophil Count 9.5 X10^3/uL (2.0-7.7); Basophil# 0.06 X10^3/uL; Basophil% 0.5 % (0-1); Eosinophil# 0.12 X10^3/uL; Hematocrit 34.7 % (37-47); Hemoglobin 10.8 g/dL (12.0-15.0); Lymphocyte # 1.04 X10^3/ul (4.0); Mean Corp Hgb Conc 31.1 g/dL (32-36); Mean Corpuscular Hgb 27.5 pg (27.0-32.0); Mean Corpuscular Volume 88.3 fL (81-99); Mean Platelet Vol. 9.8 fl (6.2-12.0); Monocyte# 0.79 X10^3/uL; Monocyte% 6.8 % (0-10); NRBC Flagged by Analyzer 0 % (0-5); Neutrophil # 9.49 X10^3/uL (2.7-7.7); Neutrophil % 82.4 % (47-70); Platelet Count 339 K/mm3 (150-450); RBC Distribution Width CV 13.2 % (11.6-14.6); RBC Distribution Width SD 42.5 fl (35.1-43.9); Red Blood Count 3.93 M/mm3 (4.2-5.4); White Blood Count 11.5 K/mm3 (4.4-11.0)
--- NOTE | 2020-10-16 17:43 | RAD_ITS ---
STUDY: X-RAY CHEST REASON FOR EXAM: Female, 74 years old. CONFUSION; SORE THROAT FOR A COUPLE DAYS TECHNIQUE: Single AP portable view of the chest. COMPARISON: 08/24/2020. FINDINGS: The lungs are clear and expanded. There is no demonstrated pleural abnormality. Normal size heart. Normal mediastinum and divina. Normal visualized pulmonary arteries. Normal visualized aortic arch and descending thoracic aorta. Normal visualized thoracic spine. Normal visualized ribs, clavicles, and shoulders. There is no demonstrated abnormality of the visualized soft tissue structures of the upper abdomen. RAD/Chest 1 View (Portable) IMPRESSION: No definite acute or significant abnormality seen. Electronically Signed: Jonathan Gomes MD at 18:23 EST , Service support ,
[2020-10-16 18:00] LABS: ALB/GLOB Ratio 0.9 RATIO (0.9-2.4); AST(SGOT) 17 U/L (15-37); Alanine Aminotransfer ALT/SGPT 7 U/L (13-56); Alkaline Phosphatase 84 U/L (45-117); Anion Gap 4 (5-15); BUN 27 mg/dL (7-18); BUN/Creat Ratio 49.6 RATIO (10-20); Calcium,Total 9.7 mg/dL (8.5-10.1); Chloride 100 mmol/L (98-107); Creatinine, Serum 0.54 mg/dL (0.55-1.02); EST Glomerular Filtration Rate 116 mL/min (>60); Est Glom Filt Rate - Afr Amer 140 mL/min (>60); Estimated Creatinine Clearance 40.21 ml/min; Globulin 3.5 g/dL (2.2-4.2); Glucose 63 mg/dL (74-106); Potassium 3.9 mmol/L (3.5-5.1); Protein, Total 6.5 g/dL (6.4-8.2); Sodium Level 137 mmol/L (136-145)
[2020-10-16 18:02] LABS: Bacteria 0 SEEN /hpf (None Seen); Mucous, Urine 0 SEEN /hpf (<or=2+); Red Blood Cells-Urine 0 SEEN /hpf (0-5); Squamous Epithelial Cells - UA 0 SEEN /hpf (5-10); White Blood Cells 0 SEEN /hpf (0-5)
[2020-10-16 18:05] LABS: Color, Urine Yellow (Yellow); Glucose, Dipstick Normal (Normal); Ketone-Dipstick 15 mg/dl (Negative); Leukocyte Esterase-Dipstick Negative /ul (Negative); Nitrite-Dipstick Negative (Negative); Occult Blood-Urine Negative /ul (Negative); Protein-Dipstick 15 mg/dl (Negative); Urine Bilirubin Dipstick Negative (Negative); Urine Clarity Clear (Clear); Urine Urobilinogen Normal (Normal)
[2020-10-16] MEDS: LORazepam 2 MG/ML Syringe 1 MG IV (18:34)
--- NOTE | 2020-10-16 18:34 | CT_ITS ---
STUDY: CT BRAIN WITH AND WITHOUT CONTRAST REASON FOR EXAM: Female, 74 years old. NEW ONSET SEIZURE TODAY. Hx of diabetes and Parkinson''s RADIATION DOSAGE (If Supplied By Facility): CTDIvol = ( 44.99 ) mGy, DLP = ( 1583.78 ) mGycm TECHNIQUE: Transaxial CT imaging of the brain was performed pre and post contrast administration. The examination was performed with intravenous administration of Isovue 370 100ml. Individualized dose optimization techniques were used for this CT. COMPARISON: 02/29/2020. FINDINGS: Normal soft tissue structures. Normal calvarium. There is mild cerebral atrophy with widening of the extra-axial spaces and ventricular dilatation. There are areas of decreased attenuation within the white matter tracts of the supratentorial brain, consistent with microvascular disease changes. Normal basal ganglia and thalami. Normal brainstem. There is mild cerebellar atrophy. There is no intracranial hemorrhage. There are no findings of an acute ischemic infarction. Normal visualized paranasal sinuses. CT/Brain/Head W/WO Contrast IMPRESSION: No change and no acute abnormality. Atrophy, white matter disease, and old lacunar infarcts. Electronically Signed: Jonathan Gomes MD at 19:34 EST , Service support ,
--- NOTE | 2020-10-16 18:51 | ED.RN ---
1828 this nurse called to pt's room. pt was having a seizure with total body clenching and shaking, DR. BELLE called to room, pt's sister present, pt then medicated with ativan 1mg ivp, padded side rails added. pt was suctioned by elvia Simpson. pt was incontinent of stool, pt was cleaned by this nurse, Kerri Galvez, and Malick Lopez. pt's sheets changed, new attends applied, pericare completed. pt resting quietly with eyes closed at this time.
[2020-10-16 19:50] LABS: Bedside Glucose 65 mg/dL (70-110)
[2020-10-16] MEDS: levETIRAcetam IV 1,000 MG/100 ML BAG 400 MG IV (20:02)
--- NOTE | 2020-10-16 20:49 | HP.PCM_ITS ---
Problem List (1) Seizure Status: Acute (2) Multiple falls Status: Chronic (3) Debility Status: Chronic (4) Hyperlipemia Status: Chronic (5) Cutaneous mycosis Status: Chronic Comment: under breasts (6) Left hip pain Status: Chronic (7) Coronary artery disease Status: Chronic (8) Hypertension Status: Chronic (9) Diabetes mellitus Status: Chronic (10) Hypothyroidism Status: Chronic (11) Allergic rhinitis Status: Chronic (12) Hypokalemia Status: Chronic (13) Depression Status: Chronic (14) Dementia, unspecified, without behavioral disturbance Status: Chronic Qualifiers: (15) Type 2 diabetes mellitus Status: Chronic (16) Mixed hyperlipidemia Status: Chronic (17) Essential hypertension Status: Chronic (18) Atherosclerotic heart disease of [place] coronary artery without angina pectoris Status: Chronic Comment: Mild (19) Parkinsons disease Status: Chronic (20) Basal cell carcinoma of right cheek Status: Chronic History of Present Illness Date of Admission: 10/16/20 Chief Complaint: confusion History was taken for emergent department doctor and nurse as by the time of examination patient was sleeping heavily after a seizure following which she was given Ativan. The patient is a 74 year old F with hypertension; Parkinson disease and diabetes mellitus who lives at a alf and who presented to the emergency department with confusion. Also when patient was lucid she reportedly told emergent department doctor that she was shaking. Also patient had a one-time episode of vomiting on the same day of presentation. Reportedly patient was incontinent of stool a day before presentation. While at emergency department patient went into a full-blown tonic clonic seizure activity. Patient was given Ativan which stopped the seizure activity. Nurse reported that with the seizure activity patient was incontinent of stool. Per conversation with emergency department doctor and patient sister, patient sister had no knowledge of prior seizure activity of patient. Further, at emergency department her blood glucose was found to be 63. Past Medical History Past Medical History (Chronic Problems): Chronic Problems (Last Reviewed 10/17/20 @ 04:[address] Robert Nieto MD) Multiple falls (Chronic) Debility (Chronic) Hyperlipemia (Chronic) Cutaneous mycosis (Chronic) under breasts Left hip pain (Chronic) Coronary artery disease (Chronic) Hypertension (Chronic) Diabetes mellitus (Chronic) Hypothyroidism (Chronic) Allergic rhinitis (Chronic) Hypokalemia (Chronic) Depression (Chronic) Dementia, unspecified, without behavioral disturbance (Chronic) Type 2 diabetes mellitus (Chronic) Mixed hyperlipidemia (Chronic) Essential hypertension (Chronic) Atherosclerotic heart disease of [place] coronary artery without angina pectoris (Chronic) Mild Parkinsons disease (Chronic) Basal cell carcinoma of right cheek (Chronic) Medical History: Medical History (Last Reviewed 10/17/20 @ 04:[address] Robert Nieto MD) Type 2 diabetes mellitus (Chronic) E11.9 Mixed hyperlipidemia (Chronic) E78.2 Essential hypertension (Chronic) I10 Atherosclerotic heart disease of [place] coronary artery without angina pectoris (Chronic) I25.10 Mild Parkinsons disease (Chronic) G20 Arthritis M19.90 Vitamin deficiency E56.9 Depression F32.9 History of back problems Allergies Penicillins Allergy (Verified 10/11/20 14:46) Rash hydrocodone Adverse Reaction (Verified 10/11/20 14:46) hallucinations Home Medications: Ambulatory Orders Medication Instructions Recorded Levothyroxine [Synthroid] 125 mcg PO DAILY 03/28/19 Metformin HCl 1,000 mg PO BID 03/28/19 Pioglitazone [Actos] 30 mg PO DAILY 03/28/19 Venlafaxine HCl [Effexor Xr] 150 mg PO DAILY 03/28/19 Ergocalciferol [Vitamin D] 50,000 unit PO SA 08/19/20 Valsartan/Hydrochlorothiazide 1 tab PO DAILY 08/19/20 [Valsartan-Hctz 320-25 mg Tab] Aspirin E.C. [Ecotrin] 81 mg PO DAILY@0800 08/28/20 Donepezil HCl 10 mg PO QHS 08/28/20 Acetaminophen [Tylenol] 1,000 mg PO Q6H PRN PRN tab 09/10/20 carbidopa 25 mg-levodopa 100 mg 2 tab PO 5X/DAY tab 09/25/20 tablet cyanocobalamin (vitamin B-12) 1,000 mcg IM QMONTH 09/25/20 1,000 mcg/mL injection solution olopatadine 0.1 % eye drops 1 drp OPHTHALMIC DAILY ml 09/25/20 Atorvastatin Calcium [Lipitor] 20 mg PO QHS 10/16/20 Bupropion HCl [Bupropion HCl Sr] 150 mg PO DAILY 10/16/20 Insulin Glargine,Hum.rec.anlog 20 unit SQ LUNCH 10/16/20 [Basaglar Kwikpen U-100] Loratadine 10 mg PO QHS 10/16/20 Tobramycin Sulf 0.3% [Tobrex] 2 drp RIGHT EYE TID 10/16/20 Surgical History: Surgical History (Last Reviewed 10/17/20 @ 04:[address] Robert Nieto MD) History of bilateral knee replacement Z96.653 History of cataract surgery Z98.49 History of cholecystectomy Z90.49 Surgical History: cataract, cholecystectomy, total knee arthroplasty - Bilateral. 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 Robert Nieto MD) Father CVA (cerebral vascular accident) Mother Congestive heart failure (CHF) Brother CAD (coronary artery disease) Hypertension History of coronary artery bypass surgery History of mitral valve repair Sister CAD (coronary artery disease) Brother Hypertension Sister Cancer Paternal Family History: Family History (Last Reviewed 10/17/20 @ 04:[address] Robert Nieto MD) Father CVA (cerebral vascular accident) Mother Congestive heart failure (CHF) Brother CAD (coronary artery disease) Hypertension History of coronary artery bypass surgery History of mitral valve repair Sister CAD (coronary artery disease) Brother Hypertension Sister Cancer History Items: No pertinent history Review of Systems Constitutional: Denies: Chills, Fever, Weight Change HEENT: Denies: Head Aches, Sinus Congestion, Sinus Drainage Cardiovascular: Denies: Chest Pain, Palpitations Respiratory: Denies: Cough, Shortness of breath at rest, Sputum production Gastrointestinal: Reports: Nausea. Denies: Abdominal Pain, Vomiting Genitourinary: Denies: Dysuria Musculoskeletal: Denies: Joint Pain, Joint Tenderness Skin: Denies: Rash, Wounds Neurological: Reports: Tremor. Denies: Focal weakness, Numbness, Tingling Psychiatric: Denies: Anxiety, Depression, Homicidal Ideations, Suicidal Ideations Hematologic/ Lymphatic: Denies: Easy Bruising, Easy Bleeding VTE Information - Inpt Only VTE Present on Admission: No VTE Mechan Device Prophylaxis: None VTE Pharm Prophylaxis ordered?: Yes Patient Problems: Active and Suspected Problems (Last Reviewed 10/17/20 @ 04:[address] Robert Nieto MD) Seizure (Acute) - Physical Exam Vitals/I&O's: Vital Signs Temp Pulse Resp BP Pulse Ox 97.7 F L 89 18 156/94 H 96 10/16/20 16:32 10/16/20 19:00 10/16/20 19:00 10/16/20 19:00 10/16/20 19:00 Oxygen Flow Rate (L/min) 2 Oxygen Delivery Method Nasal Cannula Weight: 103.2 kg Body Mass Index (BMI) 40.3 Finger Stick Blood Glucose 65 Intake and Output for Last 24 Hours 10/14/20 10/15/20 10/16/20 23:59 23:59 23:59 Intake Total 1000 / 1000 Balance 1000 / 1000 General: - - Obtunded at the time of examination. HEENT: Atraumatic, Normocephalic Neck: Supple, No JVD, Negative Carotid Bruits Lungs: Clear to auscultation, Normal air movement Cardiovascular: Regular rate, Normal S1, Normal S2, No murmurs Abdomen: Bowel Sounds Present, Soft, Non Tender Extremities: No edema, Capillary Refill Less than 3 Seconds Skin: No rashes, No breakdown Musculoskeletal: No Tenderness to Palpation of Joints or Extremities Neurological: Cranial nerves II-XII grossly intact Psych/Mental Status: - - Obtunded Microbiology Past 72 Hours 10/16/20 17:30 Mucosa - Nose SARS-CoV-2 Antigen (Rapid) - Final Laboratory Results 10/16/20 17:15: WBC 11.5 H, RBC 3.93 L, Hgb 10.8 L, Hct 34.7 L, MCV 88.3, MCH 27.5, MCHC 31.1 L, RDW Std Deviation 42.5, RDW Coeff of Kimberly 13.2, Plt Count 339, MPV 9.8, Immature Gran % (Auto) 0.300, Neut % (Auto) 82.4 H, Lymph % (Auto) 9.0 L, [place] % (Auto) 6.8, Eos % (Auto) 1.0, Baso % (Auto) 0.5, Absolute Neuts (auto) 9.5 H, Absolute Lymphs (auto) 1.04, Nucleated RBC % 0 10/16/20 17:15: Sodium 137, Potassium 3.9, Chloride 100, Carbon Dioxide 33.0 H, Anion Gap 4 L, BUN 27 H, Creatinine 0.54 L, Estim Creat Clear Calc 40.21, Est GFR (MDRD) Af Amer 140, Est GFR (MDRD) Non-Af 116, BUN/Creatinine Ratio 49.6 H, Glucose 63 L, Calcium 9.7, Total Bilirubin 0.60, AST 17, ALT 7 L, Alkaline Phosphatase 84, Total Protein 6.5, Albumin 3.0 L, Globulin 3.5, Albumin/Globulin Ratio 0.9 10/16/20 17:55: Urine Color Yellow, Urine Clarity Clear, Urine pH 6.0, Ur Specific [place] 1.020, Urine Protein 15 H, Urine Glucose (UA) Normal, Urine Ketones 15 H, Urine Occult Blood Negative, Urine Nitrite Negative, Urine Bilirubin Negative, Urine Urobilinogen Normal, Ur Leukocyte Esterase Negative, Urine RBC 0 SEEN, Urine WBC 0 SEEN, Ur Squamous Epith Cells 0 SEEN, Urine Bacteria 0 SEEN, Urine Mucus 0 SEEN 10/16/20 19:44: POC Glucose 65 L Assessment/Plan All Active Problems (Last Reviewed 10/17/20 @ 04:[address] Robert Nieto MD) Seizure (Acute) The patient is a 74 year old F with hypertension; Parkinson disease and diabetes mellitus who lives at a alf and was sent emergency departments because of confusion and full who developed a full-blown tonic clonic seizure at emergency department. New onset seizure Impression of brain CT by radiologist: No change and no acute abnormality. Atrophy, white matter disease and old lacunar infarcts. Brain CT was independently interpreted. I agree with radiologist interpretation. Patient received Ativan and loaded with Keppra at the emergency department. Ativan as needed ordered. Keppra IV as needed ordered. We will check EEG. N.p.o. as patient was lethargic. Hypoglycemia Blood glucose of 63 on BMP at the emergency department. 25 g of D50 received at the ED. Will start patient on gentle dextrose infusion and check Accu-Cheks every 4 hours. Hold home Lantus. Hold home Actos. Hypertension Blood pressure is not within goal In the setting of n.p.o. hold home p.o. blood pressure medications. As needed hydralazine ordered. Trend blood pressure . Hypothyroidism On home Synthroid. Held secondary to n.p.o. status at this time. DVT prophylaxis Subcutaneous Lovenox Inpatient E&M: 55981 Init Hosp L3
[2020-10-16] MEDS: Dextrose 50%-Water 25 GM/50 ML DISP.SYRIN IV (21:16)
--- NOTE | 2020-10-16 21:57 | PCS.PANDOC ---
PANDEMIC DOCUMENTATION INITIATED: Date: 10/16/20 Time: 21:35
[2020-10-16 22:11] LABS: Bedside Glucose 92 mg/dL (70-110)
--- NOTE | 2020-10-16 22:58 | NURSING ---
Update called to Jillian [facility] at [facility]. Jillian reports pt.'s baseline is A&Ox3, on RA, is able to transfer with one assist.
[2020-10-17] VITALS (10 sets, daily range): BP systolic 141–153; BP diastolic 49–81; PULSE 60–81; RESP 18; TEMP 36.2–36.8; O2SAT 94–100
[2020-10-17 02:11] LABS: Bedside Glucose 74 mg/dL (70-110)
[2020-10-17] MEDS: Dextrose 50%-Water 25 GM/50 ML DISP.SYRIN IV (06:12)
[2020-10-17] MEDS: 0.9% Saline Lock 10 ML Syringe IV (06:13)
[2020-10-17 06:59] LABS: Absolute Lymphocyte Count 1.12 X10^3/uL (0.83-4.51); Absolute Neutrophil Count 7.5 X10^3/uL (2.0-7.7); Basophil# 0.06 X10^3/uL; Basophil% 0.6 % (0-1); Eosinophil# 0.16 X10^3/uL; Eosinophils% 1.7 % (0-5); Hematocrit 38.2 % (37-47); Hemoglobin 11.5 g/dL (12.0-15.0); Lymphocyte # 1.12 X10^3/ul (4.0); Lymphocyte % 11.7 % (19-41); Mean Corp Hgb Conc 30.1 g/dL (32-36); Mean Corpuscular Hgb 26.9 pg (27.0-32.0); Mean Corpuscular Volume 89.5 fL (81-99); Mean Platelet Vol. 9.1 fl (6.2-12.0); Monocyte# 0.68 X10^3/uL; Monocyte% 7.1 % (0-10); NRBC Flagged by Analyzer 0 % (0-5); Neutrophil % 78.5 % (47-70); Platelet Count 318 K/mm3 (150-450); RBC Distribution Width CV 13.1 % (11.6-14.6); RBC Distribution Width SD 42.9 fl (35.1-43.9); Red Blood Count 4.27 M/mm3 (4.2-5.4); White Blood Count 9.6 K/mm3 (4.4-11.0)
[2020-10-17 07:00] LABS: Bedside Glucose 135 mg/dL (70-110)
[2020-10-17 07:00] LABS: Bedside Glucose 67 mg/dL (70-110)
[2020-10-17 07:20] LABS: Anion Gap 2 (5-15); BUN 12 mg/dL (7-18); BUN/Creat Ratio 24.1 RATIO (10-20); Calcium,Total 9.5 mg/dL (8.5-10.1); Chloride 103 mmol/L (98-107); EST Glomerular Filtration Rate 128 mL/min (>60); Est Glom Filt Rate - Afr Amer 155 mL/min (>60); Estimated Creatinine Clearance 40.21 ml/min; Glucose 174 mg/dL (74-106); Potassium 3.3 mmol/L (3.5-5.1); Sodium Level 140 mmol/L (136-145)
--- NOTE | 2020-10-17 08:28 | TELEMED_ITS ---
[facility] Telemed has confirmed receipt of a request for visit. This document confirms receipt of the order initiating the consult. To find the results of the consultation, please view the patient's reports for the scanned Telemed Consult.
[2020-10-17] MEDS: levETIRAcetam IV 1,000 MG/100 ML BAG 400 MG IV (09:33)
[2020-10-17] MEDS: Enoxaparin 40 MG/0.4 ML Syringe SC (09:46)
[2020-10-17 10:16] LABS: Bedside Glucose 181 mg/dL (70-110)
--- NOTE | 2020-10-17 13:42 | PCM.PROGNOTE ---
<AlexanderZabrina SENIOR UNDERWRITER - Last Filed: 10/17/20 14:39> Patient Problems: Active and Suspected Problems (Last Reviewed 10/17/20 @ 04:[address] Robert Nieto MD) Seizure (Acute) Subjective: Patient seen and examined. Denies further seizure activity. Complains of sore throat. Denies other symptoms or complaints. - Physical Exam Vitals/I&O's: Vital Signs Temp Pulse Resp BP Pulse Ox 97.2 F L 67 18 153/49 H 97 10/17/20 09:45 10/17/20 11:00 10/17/20 09:45 10/17/20 09:45 10/17/20 09:45 Oxygen Flow Rate (L/min) 1 Oxygen Delivery Method Nasal Cannula Weight: 210 lb 5.136 oz Body Mass Index (BMI) 37.2 Finger Stick Blood Glucose 65 Intake and Output for Last 24 Hours 10/15/20 10/16/20 10/17/20 23:59 23:59 23:59 Intake Total 1100 / 1100 962.5 / 962.5 Output Total 2100 / 2100 Balance 1100 / 1100 -1137.5 / -1137.5 General: Alert, Oriented x3, Cooperative HEENT: Atraumatic, PERRLA, EOMI, Normocephalic Oral: Dry Mucosa Neck: Supple, No JVD, Negative Carotid Bruits Lungs: Clear to auscultation, Normal air movement Cardiovascular: Regular rate, No murmurs Abdomen: Bowel Sounds Present, Soft, Non Tender, Non-Distended Extremities: No clubbing, No cyanosis, No edema, Capillary Refill Less than 3 Seconds Skin: No rashes, No breakdown Musculoskeletal: No Tenderness to Palpation of Joints or Extremities Neurological: Cranial nerves II-XII grossly intact, Neuro grossly intact Psych/Mental Status: Normal Affect, Appropriate Microbiology Past 72 Hours 10/16/20 17:30 Mucosa - Nose SARS-CoV-2 Antigen (Rapid) - Final Laboratory Results 10/16/20 17:15: WBC 11.5 H, RBC 3.93 L, Hgb 10.8 L, Hct 34.7 L, MCV 88.3, MCH 27.5, MCHC 31.1 L, RDW Std Deviation 42.5, RDW Coeff of Kimberly 13.2, Plt Count 339, MPV 9.8, Immature Gran % (Auto) 0.300, Neut % (Auto) 82.4 H, Lymph % (Auto) 9.0 L, [place] % (Auto) 6.8, Eos % (Auto) 1.0, Baso % (Auto) 0.5, Absolute Neuts (auto) 9.5 H, Absolute Lymphs (auto) 1.04, Nucleated RBC % 0 10/16/20 17:15: Sodium 137, Potassium 3.9, Chloride 100, Carbon Dioxide 33.0 H, Anion Gap 4 L, BUN 27 H, Creatinine 0.54 L, Estim Creat Clear Calc 40.21, Est GFR (MDRD) Af Amer 140, Est GFR (MDRD) Non-Af 116, BUN/Creatinine Ratio 49.6 H, Glucose 63 L, Calcium 9.7, Total Bilirubin 0.60, AST 17, ALT 7 L, Alkaline Phosphatase 84, Total Protein 6.5, Albumin 3.0 L, Globulin 3.5, Albumin/Globulin Ratio 0.9 10/16/20 17:55: Urine Color Yellow, Urine Clarity Clear, Urine pH 6.0, Ur Specific [place] 1.020, Urine Protein 15 H, Urine Glucose (UA) Normal, Urine Ketones 15 H, Urine Occult Blood Negative, Urine Nitrite Negative, Urine Bilirubin Negative, Urine Urobilinogen Normal, Ur Leukocyte Esterase Negative, Urine RBC 0 SEEN, Urine WBC 0 SEEN, Ur Squamous Epith Cells 0 SEEN, Urine Bacteria 0 SEEN, Urine Mucus 0 SEEN 10/16/20 19:44: POC Glucose 65 L 10/16/20 22:04: POC Glucose 92 10/17/20 02:05: POC Glucose 74 10/17/20 06:07: POC Glucose 67 L 10/17/20 06:52: WBC 9.6, RBC 4.27, Hgb 11.5 L, Hct 38.2, MCV 89.5, MCH 26.9 L, MCHC 30.1 L, RDW Std Deviation 42.9, RDW Coeff of [place] 13.1, Plt Count 318, MPV 9.1, Immature Gran % (Auto) 0.400, Neut % (Auto) 78.5 H, Lymph % (Auto) 11.7 L, [place] % (Auto) 7.1, Eos % (Auto) 1.7, Baso % (Auto) 0.6, Absolute Neuts (auto) 7.5, Absolute Lymphs (auto) 1.12, Nucleated RBC % 0 10/17/20 06:52: Sodium 140, Potassium 3.3 L, Chloride 103, Carbon Dioxide 35.0 H, Anion Gap 2 L, BUN 12, Creatinine 0.50 L, Estim Creat Clear Calc 40.21, Est GFR (MDRD) Af Amer 155, Est GFR (MDRD) Non-Af 128, BUN/Creatinine Ratio 24.1 H, Glucose 174 H, Calcium 9.5 10/17/20 06:55: POC Glucose 135 H 10/17/20 09:57: POC Glucose 181 H Current Medications Dextrose (Dextrose 50%-Water 25 Gm/50 Ml Disp.Syrin) 0 gm IV X1 PRN; Protocol PRN Reason: Hypoglycemia Last Admin: 10/17/20 06:12 Dose: 12.5 gm Documented by: Enoxaparin Sodium (Enoxaparin 40 Mg/0.4 Ml Syringe) 40 mg SC DAILY COUNTS INCLUDE 234 BEDS AT THE [facility] Last Admin: 10/17/20 09:46 Dose: 40 mg Documented by: Glucagon (Glucagon 1 Mg/Ml Syringe) 1 mg IM .X1 PRN PRN Reason: Hypoglycemia Hydralazine HCl (Hydralazine 20 Mg/Ml Vial) 5 mg IV Q4H PRN PRN PRN Reason: sbp> 160 or dbp > 120 Levetiracetam () 1,000 mg in 100 mls @ 400 mls/hr IV Q12 COUNTS INCLUDE 234 BEDS AT THE [facility] Last Infusion: 10/17/20 09:58 Dose: Infused Documented by: Dextrose () 1,000 mls @ 75 mls/hr IV .[id number] COUNTS INCLUDE 234 BEDS AT THE [facility] Last Admin: 10/17/20 09:46 Dose: 75 mls/hr Documented by: Lorazepam (Lorazepam 2 Mg/Ml Syringe) 1 mg IV X1 PRN PRN Reason: SEIZURES Nutritional Formula (Lactose Free) (Glucerna Shake 120 Ml Liquid) 120 ml PO TIDCM COUNTS INCLUDE 234 BEDS AT THE [facility] Last Admin: 10/17/20 11:02 Dose: Not Given Documented by: Ondansetron HCl (Ondansetron 4 Mg/2 Ml Vial) 4 mg IV Q8H PRN PRN PRN Reason: NAUSEA/VOMITING Sodium Chloride (0.9% Saline Lock 10 Ml Syringe) 10 - 40 ml IV UD PRN PRN Reason: SALINE FLUSH Last Admin: 10/17/20 06:13 Dose: 20 ml Documented by: Medical Necessity - Tobacco Use Smoking Status: Never smoker Tobacco Use: Non-smoker Assessment/Plan All Active Problems (Last Reviewed 10/17/20 @ 04:[address] Robert Nieto MD) Seizure (Acute) 1. New onset seizure-on IV Keppra. EEG without seizure activity. Brain CT without acute abnormality. SOC neurology consult placed. Seizure precautions. 2. Hypoglycemia in the context of type 2 diabetes mellitus-oral and insulin regimen on hold. Hypoglycemia improved. Continue Accu-Cheks. 3. Hypertension-stable, continue valsartan/HCTZ regimen. 4. Hypothyroidism-continue Synthroid regimen. 5. Parkinson's disease/dementia-resides at [facility]. PT/OT. Continue donepezil, Sinemet. 6. Hyperlipidemia-continue statin. DVT prophylaxis-Lovenox subcu This patient was seen by EAN Murrell under the supervision of Dr. Olivares. <Candelaria Olivares E - Last Filed: 10/18/20 10:59> - Physical Exam Vitals/I&O's: Vital Signs Temp Pulse Resp BP Pulse Ox 97.2 F L 67 18 153/49 H 97 10/17/20 09:45 10/17/20 11:00 10/17/20 09:45 10/17/20 09:45 10/17/20 09:45 Oxygen Flow Rate (L/min) 1 Oxygen Delivery Method Nasal Cannula Weight: 210 lb 5.136 oz Body Mass Index (BMI) 37.2 Finger Stick Blood Glucose 65 Intake and Output for Last 24 Hours 10/15/20 10/16/20 10/17/20 23:59 23:59 23:59 Intake Total 1100 / 1100 962.5 / 962.5 Output Total 2100 / 2100 Balance 1100 / 1100 -1137.5 / -1137.5 Microbiology Past 72 Hours 10/16/20 17:30 Mucosa - Nose SARS-CoV-2 Antigen (Rapid) - Final Laboratory Results 10/16/20 17:15: WBC 11.5 H, RBC 3.93 L, Hgb 10.8 L, Hct 34.7 L, MCV 88.3, MCH 27.5, MCHC 31.1 L, RDW Std Deviation 42.5, RDW Coeff of Kimberly 13.2, Plt Count 339, MPV 9.8, Immature Gran % (Auto) 0.300, Neut % (Auto) 82.4 H, Lymph % (Auto) 9.0 L, [place] % (Auto) 6.8, Eos % (Auto) 1.0, Baso % (Auto) 0.5, Absolute Neuts (auto) 9.5 H, Absolute Lymphs (auto) 1.04, Nucleated RBC % 0 10/16/20 17:15: Sodium 137, Potassium 3.9, Chloride 100, Carbon Dioxide 33.0 H, Anion Gap 4 L, BUN 27 H, Creatinine 0.54 L, Estim Creat Clear Calc 40.21, Est GFR (MDRD) Af Amer 140, Est GFR (MDRD) Non-Af 116, BUN/Creatinine Ratio 49.6 H, Glucose 63 L, Calcium 9.7, Total Bilirubin 0.60, AST 17, ALT 7 L, Alkaline Phosphatase 84, Total Protein 6.5, Albumin 3.0 L, Globulin 3.5, Albumin/Globulin Ratio 0.9 10/16/20 17:55: Urine Color Yellow, Urine Clarity Clear, Urine pH 6.0, Ur Specific [place] 1.020, Urine Protein 15 H, Urine Glucose (UA) Normal, Urine Ketones 15 H, Urine Occult Blood Negative, Urine Nitrite Negative, Urine Bilirubin Negative, Urine Urobilinogen Normal, Ur Leukocyte Esterase Negative, Urine RBC 0 SEEN, Urine WBC 0 SEEN, Ur Squamous Epith Cells 0 SEEN, Urine Bacteria 0 SEEN, Urine Mucus 0 SEEN 10/16/20 19:44: POC Glucose 65 L 10/16/20 22:04: POC Glucose 92 10/17/20 02:05: POC Glucose 74 10/17/20 06:07: POC Glucose 67 L 10/17/20 06:52: WBC 9.6, RBC 4.27, Hgb 11.5 L, Hct 38.2, MCV 89.5, MCH 26.9 L, MCHC 30.1 L, RDW Std Deviation 42.9, RDW Coeff of Kimberly 13.1, Plt Count 318, MPV 9.1, Immature Gran % (Auto) 0.400, Neut % (Auto) 78.5 H, Lymph % (Auto) 11.7 L, [place] % (Auto) 7.1, Eos % (Auto) 1.7, Baso % (Auto) 0.6, Absolute Neuts (auto) 7.5, Absolute Lymphs (auto) 1.12, Nucleated RBC % 0 10/17/20 06:52: Sodium 140, Potassium 3.3 L, Chloride 103, Carbon Dioxide 35.0 H, Anion Gap 2 L, BUN 12, Creatinine 0.50 L, Estim Creat Clear Calc 40.21, Est GFR (MDRD) Af Amer 155, Est GFR (MDRD) Non-Af 128, BUN/Creatinine Ratio 24.1 H, Glucose 174 H, Calcium 9.5 10/17/20 06:55: POC Glucose 135 H 10/17/20 09:57: POC Glucose 181 H 10/17/20 13:38: POC Glucose 146 H Current Medications Aspirin (Aspirin E.C. 81 Mg Tablet) 81 mg PO DAILY@0800 COUNTS INCLUDE 234 BEDS AT THE [facility] Atorvastatin Calcium (Atorvastatin Calcium 20 Mg Tablet) 20 mg PO QHS COUNTS INCLUDE 234 BEDS AT THE [facility] Bupropion HCl (Bupropion (Sr) 150 Mg Tablet.Sa) 150 mg PO DAILY COUNTS INCLUDE 234 BEDS AT THE [facility] Carbidopa/Levodopa (Carbidopa/Levodopa 25/100 Tablet) 2 tablet PO 5X/DAY COUNTS INCLUDE 234 BEDS AT THE [facility] Dextrose (Dextrose 50%-Water 25 Gm/50 Ml Disp.Syrin) 0 gm IV X1 PRN; Protocol PRN Reason: Hypoglycemia Last Admin: 10/17/20 06:12 Dose: 12.5 gm Documented by: Donepezil HCl (Donepezil Hcl 10 Mg Tablet) 10 mg PO QHS COUNTS INCLUDE 234 BEDS AT THE [facility] Enoxaparin Sodium (Enoxaparin 40 Mg/0.4 Ml Syringe) 40 mg SC DAILY COUNTS INCLUDE 234 BEDS AT THE [facility] Last Admin: 10/17/20 09:46 Dose: 40 mg Documented by: Glucagon (Glucagon 1 Mg/Ml Syringe) 1 mg IM .X1 PRN PRN Reason: Hypoglycemia Hydralazine HCl (Hydralazine 20 Mg/Ml Vial) 5 mg IV Q4H PRN PRN PRN Reason: sbp> 160 or dbp > 120 Dextrose () 1,000 mls @ 75 mls/hr IV .[id number] COUNTS INCLUDE 234 BEDS AT THE [facility] Last Admin: 10/17/20 09:46 Dose: 75 mls/hr Documented by: Levetiracetam 750 mg/ Sodium (Chloride) 107.5 mls @ 430 mls/hr IV Q12 RAH Levothyroxine Sodium (Levothyroxine 125 Mcg Tablet) 125 mcg PO DAILY@0600 COUNTS INCLUDE 234 BEDS AT THE [facility] Lorazepam (Lorazepam 2 Mg/Ml Syringe) 1 mg IV X1 PRN PRN Reason: SEIZURES Nutritional Formula (Lactose Free) (Glucerna Shake 120 Ml Liquid) 120 ml PO TIDCM [facility] Last Admin: 10/17/20 11:02 Dose: Not Given Documented by: Ondansetron HCl (Ondansetron 4 Mg/2 Ml Vial) 4 mg IV Q8H PRN PRN PRN Reason: NAUSEA/VOMITING Sodium Chloride (0.9% Saline Lock 10 Ml Syringe) 10 - 40 ml IV UD PRN PRN Reason: SALINE FLUSH Last Admin: 10/17/20 06:13 Dose: 20 ml Documented by: Venlafaxine HCl (Venlafaxine Xr 150 Mg Capsule) 150 mg PO DAILY COUNTS INCLUDE 234 BEDS AT THE [facility] Assessment/Plan Hospitalist note: I am seeing this patient in conjunction with Zabrina Munoz. I independently seen and examined the patient. Progress note above, laboratory data and imaging studies reviewed and I concur with above treatment plan. Today, patient had no more seizure activity. No significant complaints. Her vital signs are stable. - Physical Exam General: Alert, Oriented x3, Cooperative, No apparent distress. HEENT: Atraumatic, PERRLA, EOMI. Neck: Supple, No JVD, Negative Carotid Bruits, Trachea Midline, Thyroid Normal. Lungs: Diminished breath sounds bilateral, otherwise clear, No rhonchi, No wheeze, No rales. Cardiovascular: Regular rate, Regular Rhythm, Normal S1, Normal S2, PMI Normal. Abdomen: Bowel Sounds Present, Soft, Non Tender, Non-Distended, No Hepato-splenomegaly. Extremities: No clubbing, No cyanosis, trace edema Skin: No rashes, No breakdown Neurological: Cranial nerves are intact, neuro grossly intact Vital Signs are stable. Assessment and plan: #1 new onset seizure: Currently, she is on IV Keppra. EEG reviewed, was unremarkable. CT scan brain showed no acute findings. [facility] tele-neurology consulted and recommended MRI brain and to keep patient on Keppra twice daily. Plan for MRI brain. #2 hypoglycemia: Sugar was slightly low at 65 mg/dL. Admission after holding her medications. Improved. #3 other chronic medical problems: Stable, continue current medications as above. This note was generated with Dragon dictation software. It may contain incorrect words, spelling, and punctuation that were not noted in checking the note before signing. Inpatient E&M: 46082 Subs Hosp L2
[2020-10-17 13:55] LABS: Bedside Glucose 146 mg/dL (70-110)
--- NOTE | 2020-10-17 14:38 | MRI_ITS ---
STUDY: MRI BRAIN WITH AND WITHOUT CONTRAST REASON FOR EXAM: Female, 74 years old. New onset seizure, confusion TECHNIQUE: Standardized multiplanar fat and water weighted pulse sequences were obtained. 19ml IV Dotarem was administered for the contrast portion of the examination. COMPARISON: CT October 16, 2020. MRI January 25, 2020 FINDINGS: There is moderate cerebral atrophy with widening of the extra-axial spaces and ventricular dilatation. There are small white matter hyperintensities, distributed throughout the deep white matter tracts of the cerebral hemispheres, consistent with mild chronic white matter ischemic changes. There is no evidence for recent intracranial ischemia or other cause of cytotoxic edema on diffusion weighted imaging (DWI). Normal T2* images of the brain without demonstrated susceptibility artifact. There is no demonstrated hemosiderin stain. Normal bilateral basal ganglia. Normal thalami. There is no extra-axial fluid accumulation. Normal flow voids within the major intracranial circulation suggesting patency by spin echo criteria. Normal venous enhancement. There is no enhancing intra-axial or extra-axial abnormality. Normal sella turcica, pituitary gland, infundibular stalk, optic chiasm and hypothalamus. Normal tectal plate and pineal gland. There are chronic white matter ischemic changes of the fortunato. The midbrain and medulla are otherwise normal. Normal cerebellum. Normal basal cisterns. Normal bilateral temporal bones. Normal bilateral internal auditory canals. There are bilateral ocular lens implants with otherwise normal intraorbital contents. Normal visualized paranasal sinuses. Normal calvarium and skull base. Normal visualized soft tissue structures. Normal visualized upper cervical spine. MRI/Brain W/WO Contrast IMPRESSION: Involutional changes of the brain, as described above. Electronically Signed: Tito Ruff MD at 18:39 EST , Service support ,
--- NOTE | 2020-10-17 14:44 | CASEMGMT ---
Addendum entered by Erika James 10/17/20 15:37: This ASHANTI CM to room and pt states her plan is to go back to [facility] at discharge at this time. Kristine BURRELL CM Addendum entered by Erika James 10/17/20 15:00: Clinicals faxed, will fax therapy evals once obtained. Kristine BURRELL CM Original Note: Per Tari at [facility] admissions, pt is currently skilled there at this time and will need a precert to return. Per [facility] COMMUNITY FACILITATOR, pt may be discharged tomorrow, so Tari aware to start precert once clinicals are faxed. Tari also states that pt was on a regular diet and speech was seeing pt there, Mary[facility] COMMUNITY FACILITATOR updated at this time, voices understanding. Kristine BURRELL CM
[2020-10-17] MEDS: Carbidopa/Levodopa 25/100 Tablet PO (18:32)
[2020-10-17] MEDS: Potassium Chloride Oral Tablet 20 MEQ 40 MEQ PO (18:32)
[2020-10-17 18:46] LABS: Bedside Glucose 259 mg/dL (70-110)
[2020-10-17 21:50] LABS: Bedside Glucose 197 mg/dL (70-110)
[2020-10-18] VITALS (8 sets, daily range): BP systolic 137–178; BP diastolic 54–63; PULSE 77–95; RESP 18; TEMP 36.5–36.8; O2SAT 94–96
[2020-10-18 02:21] LABS: Bedside Glucose 156 mg/dL (70-110)
[2020-10-18] MEDS: Levothyroxine 125 MCG Tablet PO (05:48)
[2020-10-18] MEDS: Carbidopa/Levodopa 25/100 Tablet PO ×4 (05:48→17:02)
[2020-10-18 05:51] LABS: Bedside Glucose 129 mg/dL (70-110)
[2020-10-18 06:30] LABS: Anion Gap 4 (5-15); BUN 16 mg/dL (7-18); BUN/Creat Ratio 25.4 RATIO (10-20); Calcium,Total 9.3 mg/dL (8.5-10.1); Chloride 103 mmol/L (98-107); Creatinine, Serum 0.63 mg/dL (0.55-1.02); EST Glomerular Filtration Rate 98 mL/min (>60); Est Glom Filt Rate - Afr Amer 118 mL/min (>60); Estimated Creatinine Clearance 40.21 ml/min; Glucose 131 mg/dL (74-106); Potassium 3.8 mmol/L (3.5-5.1); Sodium Level 139 mmol/L (136-145)
--- NOTE | 2020-10-18 09:14 | CASEMGMT ---
ISAEL faxed PT/OT/ST evaluations to [facility]. She will need pre-cert to return to [facility]. ISAEL will find out from physician when patient is ready so a pre-cert can be initiated. Kerri RASCON MSW
[2020-10-18] MEDS: Aspirin E.C. 81 MG Tablet PO (10:45)
[2020-10-18] MEDS: Enoxaparin 40 MG/0.4 ML Syringe SC (10:45)
[2020-10-18] MEDS: Venlafaxine XR 150 MG Capsule PO (10:46)
[2020-10-18] MEDS: buPROPion 100 MG Tablet PO (10:51)
[2020-10-18] MEDS: 0.9% Saline Lock 10 ML Syringe IV (10:54)
--- NOTE | 2020-10-18 10:59 | PCM.PROGNOTE ---
Patient Problems: Active and Suspected Problems (Last Reviewed 10/17/20 @ 04:[address] Robert Nieto MD) Seizure (Acute) Subjective: Chief complaint: Follow-up after admission for new onset seizure. Patient seen and examined. No acute events overnight. Today, she is feeling better, no complaints. No reported seizure activity. She is requiring some oxygen 2 L, other vital signs are stable, afebrile. - Physical Exam Vitals/I&O's: Vital Signs Temp Pulse Resp BP Pulse Ox 98.3 F 90 18 178/56 H 96 10/18/20 10:43 10/18/20 10:43 10/18/20 10:43 10/18/20 10:43 10/18/20 10:43 Oxygen Flow Rate (L/min) 2 Oxygen Delivery Method Nasal Cannula Weight: 210 lb 5.136 oz Body Mass Index (BMI) 37.2 Finger Stick Blood Glucose 65 Intake and Output for Last 24 Hours 10/16/20 10/17/20 10/18/20 23:59 23:59 23:59 Intake Total 1100 / 1100 1982.5 / 1982.5 50 / 50 Output Total 2475 / 2475 Balance 1100 / 1100 -492.5 / -492.5 General: Alert, Cooperative, No apparent distress, Well developed HEENT: Atraumatic, PERRLA, EOMI, Normocephalic Oral: Moist Mucosa, No Gingival or Mucosal Lesions/ Ulcerations Neck: Supple, No JVD, Negative Carotid Bruits, Trachea Midline, Thyroid Normal Size and Texture Lungs: Clear to auscultation, No rhonchi, No wheeze, No rales, Diminished Cardiovascular: Regular rate, Regular Rhythm, Normal S1, Normal S2, PMI Normal Abdomen: Bowel Sounds Present, Soft, Non Tender, Non-Distended, No Hepato-splenomegaly, Obese Extremities: No clubbing, No cyanosis, No edema Skin: No rashes, No breakdown Lymphatic: No Cervical, Supraclavicular, or Inguinal Adenopathy Neurological: Cranial nerves II-XII grossly intact, Motor Exam 5/5 strength throughout, - - Global weakness. Psych/Mental Status: Normal Affect, Appropriate Microbiology Past 72 Hours 10/16/20 17:30 Mucosa - Nose SARS-CoV-2 Antigen (Rapid) - Final Laboratory Results 10/17/20 13:38: POC Glucose 146 H 10/17/20 18:26: POC Glucose 259 H 10/17/20 21:42: POC Glucose 197 H 10/18/20 02:14: POC Glucose 156 H 10/18/20 05:40: Sodium 139, Potassium 3.8, Chloride 103, Carbon Dioxide 32.0, Anion Gap 4 L, BUN 16, Creatinine 0.63, Estim Creat Clear Calc 40.21, Est GFR (MDRD) Af Amer 118, Est GFR (MDRD) Non-Af 98, BUN/Creatinine Ratio 25.4 H, Glucose 131 H, Calcium 9.3 10/18/20 05:46: POC Glucose 129 H Clinical Impression(s) from Imaging Studies Chest X-Ray 10/16/20 17:43 IMPRESSION: No definite acute or significant abnormality seen. Electronically Signed: Jonathan Gomes MD at 18:23 EST , Service support , Brain CT 10/16/20 18:34 IMPRESSION: No change and no acute abnormality. Atrophy, white matter disease, and old lacunar infarcts. Electronically Signed: Jonathan Gomes MD at 19:34 EST , Service support , Brain MRI 10/17/20 14:38 IMPRESSION: Involutional changes of the brain, as described above. Electronically Signed: Tito Ruff MD at 18:39 EST , Service support , Current Medications Aspirin (Aspirin E.C. 81 Mg Tablet) 81 mg PO DAILY@0800 [facility] Last Admin: 10/18/20 10:45 Dose: 81 mg Documented by: Atorvastatin Calcium (Atorvastatin Calcium 20 Mg Tablet) 20 mg PO QHS [facility] Last Admin: 10/17/20 21:54 Dose: Not Given Documented by: Bupropion HCl (Bupropion 100 Mg Tablet) 100 mg PO DAILY [facility] Last Admin: 10/18/20 10:51 Dose: 100 mg Documented by: Carbidopa/Levodopa (Carbidopa/Levodopa 25/100 Tablet) 2 tablet PO 5X/DAY [facility] Last Admin: 10/18/20 10:45 Dose: 2 tablet Documented by: Dextrose (Dextrose 50%-Water 25 Gm/50 Ml Disp.Syrin) 0 gm IV X1 PRN; Protocol PRN Reason: Hypoglycemia Last Admin: 10/17/20 06:12 Dose: 12.5 gm Documented by: Donepezil HCl (Donepezil Hcl 10 Mg Tablet) 10 mg PO QHS [facility] Last Admin: 10/17/20 21:55 Dose: Not Given Documented by: Enoxaparin Sodium (Enoxaparin 40 Mg/0.4 Ml Syringe) 40 mg SC DAILY [facility] Last Admin: 10/18/20 10:45 Dose: 40 mg Documented by: Glucagon (Glucagon 1 Mg/Ml Syringe) 1 mg IM .X1 PRN PRN Reason: Hypoglycemia Hydralazine HCl (Hydralazine 20 Mg/Ml Vial) 5 mg IV Q4H PRN PRN PRN Reason: sbp> 160 or dbp > 120 Levetiracetam 750 mg/ Sodium (Chloride) 107.5 mls @ 430 mls/hr IV Q12 [facility] Last Admin: 10/18/20 10:53 Dose: 430 mls/hr Documented by: Levothyroxine Sodium (Levothyroxine 125 Mcg Tablet) 125 mcg PO DAILY@0600 [facility] Last Admin: 10/18/20 05:48 Dose: 125 mcg Documented by: Lorazepam (Lorazepam 2 Mg/Ml Syringe) 1 mg IV X1 PRN PRN Reason: SEIZURES Nutritional Formula (Lactose Free) (Glucerna Shake 120 Ml Liquid) 120 ml PO TIDCM [facility] Last Admin: 10/18/20 10:45 Dose: Not Given Documented by: Ondansetron HCl (Ondansetron 4 Mg/2 Ml Vial) 4 mg IV Q8H PRN PRN PRN Reason: NAUSEA/VOMITING Pioglitazone HCl (Pioglitazone Hydrochloride 30 Mg Tablet) 30 mg PO DAILY [facility] Sodium Chloride (0.9% Saline Lock 10 Ml Syringe) 10 - 40 ml IV UD PRN PRN Reason: SALINE FLUSH Last Admin: 10/18/20 10:54 Dose: 10 ml Documented by: Tobramycin Sulfate (Tobramycin Sulf 0.3% 5ml Opth.Btl) 2 drop RIGHT EYE TID [facility] Venlafaxine HCl (Venlafaxine Xr 150 Mg Capsule) 150 mg PO DAILY [facility] Last Admin: 10/18/20 10:46 Dose: 150 mg Documented by: Medical Necessity - Tobacco Use Smoking Status: Never smoker Tobacco Use: Non-smoker Assessment/Plan All Active Problems (Last Reviewed 10/17/20 @ 04:[address] Robert Nieto MD) Seizure (Acute) This is a 74 years old female patient presented to the emergency room because of reported confusion and shakiness, had an episode of tonic clonic seizure in the ED and she received IV Ativan in the ED and she was admitted for evaluation and treatment. #1 new onset seizure: Remained on IV Keppra. EEG reviewed, was unremarkable. CT scan brain showed no acute findings. [facility] tele-neurology consulted and recommended MRI brain and to keep patient on Keppra twice daily. MRI brain done and showed no acute findings. Patient had no more seizure. Plan to continue same treatment, patient will need follow-up with neurology as outpatient. Awaiting placement to long-term facility. #2 hypoglycemia/type 2 diabetes mellitus: Sugar was slightly low at 65 mg/dL. Blood sugar improved. Currently, she is on Actos, Metformin held. Continue Accu-Cheks q. CHS, sliding scale. I do not think this hypoglycemia is contributing to her seizure because she had a seizure in the ED and it was witnessed by the nursing staff and the ED physician. #3 hypertension: Blood pressure stable, continue valsartan/HCTZ. #4 hypothyroidism: Continue levothyroxine. #5 Parkinson's disease/dementia/physical debility: Continue with donepezil and Sinemet. Patient has been residing in senior living. #6 hyperlipidemia: Continue statins. #7 DVT prophylaxis: Subcu Lovenox. This note was generated with [employer] dictation software. It may contain incorrect words, spelling, and punctuation that were not noted in checking the note before signing. Inpatient E&M: 92461 Subs Hosp L2
--- NOTE | 2020-10-18 11:10 | PCM.TXEXTCAR ---
- Diet 10/17/20 15:07 Diet: Regular - General Food consistency:: Pureed Liquid Consistency:: Honey/Moderately Thick Is pt able to select menu?: No Diet Comments: 1:1 supervised meals, straws ok - Routine Orders/Code Status Code Status: DNC-A - Suggestions for Active Care Change Position every (hours): 3 Hours to sit in a chair: 2 Times a day to sit in chair: 3 - Therapies Weight Bearing: Weight bearing as tolerated Physical Therapy: Eval and Treat Occupational Therapy: Eval and Treat - Allergies/Procedures Done in Hospital Allergies/Adverse Reactions: Allergies Penicillins Allergy (Verified 10/11/20 14:46) Rash hydrocodone Adverse Reaction (Verified 10/11/20 14:46) hallucinations - Type of Care/Length of Stay Estimated LOS: Convalescent Care Less Than 30 days Type of Care Needed: Skilled Rehab Potential: Fair Prognosis: Fair - Additional Orders/Day of Discharge Additional Orders: Patient will need to follow-up with neurology in 2 to 3 weeks. H&P will serve as current which was dated: 10/16/20 Day of Discharge: 10/18/20 - Dietary and Speech Recommendations Dietitian Recommendations/Changes: Regular, no added salt diet when PO diet appropriate; Will monitor PO intake as established and adjust diet as indicated. Continue Glucerna 120mL TID when PO diet appropriate. - Follow Up Care Primary Care Physician: Messi Valencia MD [Primary Care Provider] - Please follow up with your Primary Care Physician in: 1 week. Please Follow Up With: Ming Vilchis MD When: 2-3 weeks.
--- NOTE | 2020-10-18 11:32 | CASEMGMT ---
ISAEL called [facility] again and left them a message asking them to please start the pre-cert. Plan: d/c back to [facility] pending pre-cert. Kerri RASCON MSW
[2020-10-18] MEDS: Pioglitazone Hydrochloride 30 MG Tablet PO (12:09)
[2020-10-18 12:20] LABS: Bedside Glucose 158 mg/dL (70-110)
--- NOTE | 2020-10-18 12:45 | PHA.DC.MR ---
Pharmacy Service has performed discharge medication reconciliation for this patient upon transfer to [facility]. Home Medications Levothyroxine [Synthroid] 125 mcg PO DAILY 03/28/19 Metformin HCl 1,000 mg PO BID 03/28/19 Pioglitazone [Actos] 30 mg PO DAILY 03/28/19 Venlafaxine HCl [Effexor Xr] 150 mg PO DAILY 03/28/19 Ergocalciferol [Vitamin D] 50,000 unit PO SA 08/19/20 Valsartan/Hydrochlorothiazide [Valsartan-Hctz 320-25 mg Tab] 1 tab PO DAILY 08/19/20 Aspirin E.C. [Ecotrin] 81 mg PO DAILY@0800 08/28/20 Donepezil HCl 10 mg PO QHS 08/28/20 Acetaminophen [Tylenol] 1,000 mg PO Q6H PRN PRN tab 09/10/20 carbidopa 25 mg-levodopa 100 mg tablet 2 tab PO 5X/DAY tab 09/25/20 cyanocobalamin (vitamin B-12) 1,000 mcg/mL injection solution 1,000 mcg IM QMONTH 09/25/20 olopatadine 0.1 % eye drops 1 drp OPHTHALMIC DAILY ml 09/25/20 Atorvastatin Calcium [Lipitor] 20 mg PO QHS 10/16/20 Bupropion HCl [Bupropion HCl Sr] 150 mg PO DAILY 10/16/20 Insulin Glargine,Hum.rec.anlog [Basaglar Kwikpen U-100] 20 unit SQ LUNCH 10/16/20 Loratadine 10 mg PO QHS 10/16/20 Tobramycin Sulf 0.3% [Tobrex] 2 drp RIGHT EYE TID 10/16/20 levETIRAcetam tablet [Keppra tablet] 750 mg PO BID #90 tab 10/18/20 The patient's discharge medication list was reviewed for discrepancies and discrepancies were resolved.
[2020-10-18] MEDS: Losartan Potassium 100 MG Tablet PO (14:35)
[2020-10-18] MEDS: Tobramycin Sulf 0.3% 5ML OPTH.BTL 2 DRP RIGHT EYE (14:35)
[2020-10-18] MEDS: hydroCHLOROthiazide 25 MG Tablet PO (14:35)
[2020-10-18 15:40] LABS: Bedside Glucose 243 mg/dL (70-110)
[2020-10-18] MEDS: Insulin Lispro 100 UNIT/ML INSULN.PEN SC (15:42)
--- NOTE | 2020-10-18 16:12 | CASEMGMT ---
ISAEL received a call from Tari with [facility] and patient was approved. ISAEL already had orders from physician. ISAEL faxed orders to [facility]. ISAEL arranged for patient to get picked up via cot at 1730. ISAEL notified RN, clerk secretary, patient, her sister Hortencia, and Steph at [facility]. Plan: d/c back to [facility] under skilled level of care. [facility] transported her via cot. Kerri RASCON MSW
--- NOTE | 2020-10-18 17:03 | PCM.DC.SUM ---
Discharge Date and Diagnosis - Problem List Patient Problems: Active and Suspected Problems (Last Reviewed 10/17/20 @ 04:[address] Robert Nieto MD) Seizure (Acute) Date of Admission: 10/16/20 Date of Discharge: 10/18/20 - Primary Discharge Diagnosis Acute Problems: Active Problems (Last Reviewed 10/17/20 @ 04:[address] Robert Nieto MD) #1 new onset seizure. #2 hypoglycemia, resolved. - Secondary Discharge Diagnosis Chronic Problems: Chronic Problems (Last Reviewed 10/17/20 @ 04:[address] Robert Nieto MD) Multiple falls (Chronic) Debility (Chronic) Hyperlipemia (Chronic) Cutaneous mycosis (Chronic) under breasts Left hip pain (Chronic) Coronary artery disease (Chronic) Hypertension (Chronic) Diabetes mellitus (Chronic) Hypothyroidism (Chronic) Allergic rhinitis (Chronic) Hypokalemia (Chronic) Depression (Chronic) Dementia, unspecified, without behavioral disturbance (Chronic) Type 2 diabetes mellitus (Chronic) Mixed hyperlipidemia (Chronic) Essential hypertension (Chronic) Atherosclerotic heart disease of [place] coronary artery without angina pectoris (Chronic) Mild Parkinsons disease (Chronic) Basal cell carcinoma of right cheek (Chronic) Hospital Course and Treatment Imaging Results: Clinical Impression(s) from Imaging Studies Chest X-Ray 10/16/20 17:43 IMPRESSION: No definite acute or significant abnormality seen. Electronically Signed: Jonathan Gomes MD at 18:23 EST , Service support , Brain CT 10/16/20 18:34 IMPRESSION: No change and no acute abnormality. Atrophy, white matter disease, and old lacunar infarcts. Electronically Signed: Jonathan Gomes MD at 19:34 EST , Service support , Brain MRI 10/17/20 14:38 IMPRESSION: Involutional changes of the brain, as described above. Electronically Signed: Tito Ruff MD at 18:39 EST , Service support , [facility] tele-neurology Operations: None Procedures: Electroencephalogram, EKG Summary of Care Provided: Patient seen and examined on the day of discharge and appeared to be stable to be discharged to long-term facility. She had no complaints. She had no more seizure activity. Her vital signs were stable. The patient is a 74 year old F presented to the emergency room from the [facility] because of reported confusion and shakiness, had an episode of tonic-clonic seizure in the emergency department and she was admitted for evaluation and treatment. She had CT scan brain done that showed no acute findings. Patient was admitted to PCU and started on IV Keppra. EEG was done and was unremarkable for epileptic focus. Her routine blood work was remarkable only for mild hypokalemia which was addressed and corrected, otherwise normal. LFT was unremarkable. There was no evidence of infection or infectious process. Chest x-ray showed no acute findings. Urinalysis was negative for UTI. Her sugar was slightly low upon admission but improved with IV fluids and diet. [facility] tele-neurology and recommended MRI brain. MRI brain done and showed no evidence of acute infarct or hemorrhage, no other findings. Patient was continued on Keppra and neurology commended to keep patient on Keppra 75 mg p.o. twice daily. Her vital signs remained stable. Blood culture showed no growth in 48 hours. COVID-19 antigen was negative. Patient discharged to long-term facility in a stable medical condition, discharged on Keppra 750 mg p.o. twice daily, plan to follow-up with neurology in 2 to 3 weeks, recommended follow-up with PCP in 1 week. Patient Problems: Active and Suspected Problems (Last Reviewed 10/17/20 @ 04:[address] Robert Nieto MD) Seizure (Acute) - Physical Exam Vitals/I&O's: Vital Signs Temp Pulse Resp BP Pulse Ox 97.9 F 84 18 142/63 H 95 10/18/20 14:40 10/18/20 15:00 10/18/20 14:40 10/18/20 14:40 10/18/20 14:40 Oxygen Flow Rate (L/min) 2 Oxygen Delivery Method Nasal Cannula Weight: 210 lb 5.136 oz Body Mass Index (BMI) 37.2 Finger Stick Blood Glucose 65 Intake and Output for Last 24 Hours 10/16/20 10/17/20 10/18/20 23:59 23:59 23:59 Intake Total 1100 / 1100 1982.5 / 1982.5 257.5 / 257.5 Output Total 2475 / 2475 Balance 1100 / 1100 -492.5 / -492.5 232.5 / 232.5 General: Alert, Oriented x3, Cooperative, No apparent distress HEENT: Atraumatic, PERRLA, EOMI, Normocephalic Oral: Moist Mucosa, No Gingival or Mucosal Lesions/ Ulcerations Neck: Supple, No JVD, Negative Carotid Bruits, Trachea Midline, Thyroid Normal Size and Texture Lungs: Clear to auscultation, No rhonchi, No wheeze, No rales, Diminished Cardiovascular: Regular rate, Regular Rhythm, Normal S1, Normal S2, PMI Normal Abdomen: Bowel Sounds Present, Soft, Non Tender, Non-Distended, No Hepato-splenomegaly, Obese Extremities: No clubbing, No cyanosis, No edema Skin: No rashes, No breakdown Lymphatic: No Cervical, Supraclavicular, or Inguinal Adenopathy Neurological: Cranial nerves II-XII grossly intact, Neuro grossly intact Psych/Mental Status: Normal Affect, Appropriate Microbiology Past 72 Hours 10/16/20 17:30 Mucosa - Nose SARS-CoV-2 Antigen (Rapid) - Final Laboratory Results 10/17/20 18:26: POC Glucose 259 H 10/17/20 21:42: POC Glucose 197 H 10/18/20 02:14: POC Glucose 156 H 10/18/20 05:40: Sodium 139, Potassium 3.8, Chloride 103, Carbon Dioxide 32.0, Anion Gap 4 L, BUN 16, Creatinine 0.63, Estim Creat Clear Calc 40.21, Est GFR (MDRD) Af Amer 118, Est GFR (MDRD) Non-Af 98, BUN/Creatinine Ratio 25.4 H, Glucose 131 H, Calcium 9.3 10/18/20 05:46: POC Glucose 129 H 10/18/20 12:09: POC Glucose 158 H 10/18/20 15:31: POC Glucose 243 H Current Medications Aspirin (Aspirin E.C. 81 Mg Tablet) 81 mg PO DAILY@0800 [facility] Last Admin: 10/18/20 10:45 Dose: 81 mg Documented by: Atorvastatin Calcium (Atorvastatin Calcium 20 Mg Tablet) 20 mg PO QHS [facility] Last Admin: 10/17/20 21:54 Dose: Not Given Documented by: Bupropion HCl (Bupropion 100 Mg Tablet) 100 mg PO DAILY [facility] Last Admin: 10/18/20 10:51 Dose: 100 mg Documented by: Carbidopa/Levodopa (Carbidopa/Levodopa 25/100 Tablet) 2 tablet PO 5X/DAY [facility] Last Admin: 10/18/20 17:02 Dose: 2 tablet Documented by: Dextrose (Dextrose 50%-Water 25 Gm/50 Ml Disp.Syrin) 0 gm IV X1 PRN; Protocol PRN Reason: Hypoglycemia Last Admin: 10/17/20 06:12 Dose: 12.5 gm Documented by: Donepezil HCl (Donepezil Hcl 10 Mg Tablet) 10 mg PO QHS [facility] Last Admin: 10/17/20 21:55 Dose: Not Given Documented by: Enoxaparin Sodium (Enoxaparin 40 Mg/0.4 Ml Syringe) 40 mg SC DAILY [facility] Last Admin: 10/18/20 10:45 Dose: 40 mg Documented by: Glucagon (Glucagon 1 Mg/Ml Syringe) 1 mg IM .X1 PRN PRN Reason: Hypoglycemia Hydralazine HCl (Hydralazine 20 Mg/Ml Vial) 5 mg IV Q4H PRN PRN PRN Reason: sbp> 160 or dbp > 120 Hydrochlorothiazide (Hydrochlorothiazide 25 Mg Tablet) 25 mg PO DAILY [facility] Last Admin: 10/18/20 14:35 Dose: 25 mg Documented by: Insulin Human Lispro (Insulin Lispro 100 Unit/Ml Insuln.Pen) 0 unit SC ACHS [facility]; Protocol Last Admin: 10/18/20 15:42 Dose: 2 u Documented by: Levetiracetam (Levetiracetam 750 Mg Tablet) 750 mg PO BID [facility] Levothyroxine Sodium (Levothyroxine 125 Mcg Tablet) 125 mcg PO DAILY@0600 [facility] Last Admin: 10/18/20 05:48 Dose: 125 mcg Documented by: Lorazepam (Lorazepam 2 Mg/Ml Syringe) 1 mg IV X1 PRN PRN Reason: SEIZURES Losartan Potassium (Losartan Potassium 100 Mg Tablet) 100 mg PO DAILY [facility] Last Admin: 10/18/20 14:35 Dose: 100 mg Documented by: Nutritional Formula (Lactose Free) (Glucerna Shake 120 Ml Liquid) 120 ml PO TIDCM [facility] Last Admin: 10/18/20 17:02 Dose: Not Given Documented by: Ondansetron HCl (Ondansetron 4 Mg/2 Ml Vial) 4 mg IV Q8H PRN PRN PRN Reason: NAUSEA/VOMITING Pioglitazone HCl (Pioglitazone Hydrochloride 30 Mg Tablet) 30 mg PO DAILY [facility] Last Admin: 10/18/20 12:09 Dose: 30 mg Documented by: Sodium Chloride (0.9% Saline Lock 10 Ml Syringe) 10 - 40 ml IV UD PRN PRN Reason: SALINE FLUSH Last Admin: 10/18/20 10:54 Dose: 10 ml Documented by: Tobramycin Sulfate (Tobramycin Sulf 0.3% 5ml Opth.Btl) 2 drop RIGHT EYE TID [facility] [place] Last Admin: 10/18/20 14:35 Dose: 2 drop Documented by: Venlafaxine HCl (Venlafaxine Xr 150 Mg Capsule) 150 mg PO DAILY [facility] Last Admin: 10/18/20 10:46 Dose: 150 mg Documented by: Home Medications: Medications to take at Discharge Levothyroxine [Synthroid] 125 mcg PO DAILY 03/28/19 Metformin HCl 1,000 mg PO BID 03/28/19 Pioglitazone [Actos] 30 mg PO DAILY 03/28/19 Venlafaxine HCl [Effexor Xr] 150 mg PO DAILY 03/28/19 Ergocalciferol [Vitamin D] 50,000 unit PO SA 08/19/20 Valsartan/Hydrochlorothiazide [Valsartan-Hctz 320-25 mg Tab] 1 tab PO DAILY 08/19/20 Aspirin E.C. [Ecotrin] 81 mg PO DAILY@0800 08/28/20 Donepezil HCl 10 mg PO QHS 08/28/20 Acetaminophen [Tylenol] 1,000 mg PO Q6H PRN PRN tab 09/10/20 carbidopa 25 mg-levodopa 100 mg tablet 2 tab PO 5X/DAY tab 09/25/20 cyanocobalamin (vitamin B-12) 1,000 mcg/mL injection solution 1,000 mcg IM QMONTH 09/25/20 olopatadine 0.1 % eye drops 1 drp OPHTHALMIC DAILY ml 09/25/20 Atorvastatin Calcium [Lipitor] 20 mg PO QHS 10/16/20 Bupropion HCl [Bupropion HCl Sr] 150 mg PO DAILY 10/16/20 Insulin Glargine,Hum.rec.anlog [Basaglshabbir Mckeonpen U-100] 20 unit SQ LUNCH 10/16/20 Loratadine 10 mg PO QHS 10/16/20 Tobramycin Sulf 0.3% [Tobrex] 2 drp RIGHT EYE TID 10/16/20 levETIRAcetam tablet [Keppra tablet] 750 mg PO BID #90 tab 10/18/20 Following Prescriptions Were Given to Patient: levETIRAcetam tablet [Keppra tablet] 750 mg PO BID #90 tab Prescription Printed Primary Care Physician: Messi Valencia MD [Primary Care Provider] - Please follow up with your Primary Care Physician in: 1 week. Please Follow Up With: Ming Vilchis MD When: 2-3 weeks. Disposition: Custodial facility Minutes spent on discharge:: 27 Patient Condition:: Stable Medical Necessity - Tobacco Use Smoking Status: Never smoker Tobacco Use: Non-smoker Meaningful Use Info Meaningful Use Diagnoses (Choose all that apply): None applicable Inpatient E&M: [id number] [facility]
--- NOTE | 2020-10-18 17:15 | NURSING ---
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 attempted again 1650 no answer and again at 1710 without an answer.
== END 2020-10-18 17:31 | disposition skilled nursing facility (03) | DRG 101 ==
LOC: ED 20:00 → PCU 20:06
PROVIDERS: Nurse Practitioner Family; Admitting Provider Hospitalist; Emergency Provider Emergency Medicine; PCP Family Medicine; Visit Provider Hospitalist
DX: R56.9 Unspecified convulsions (principal); E11.649 Type 2 diabetes mellitus with hypoglycemia without coma; I25.10 Atherosclerotic heart disease of native coronary artery without angina pectoris; I10 Essential (primary) hypertension; E03.9 Hypothyroidism, unspecified; E87.6 Hypokalemia; F32.9 Major depressive disorder, single episode, unspecified; E78.2 Mixed hyperlipidemia; J30.9 Allergic rhinitis, unspecified; B36.8 Other specified superficial mycoses; G20 Parkinson's disease; F02.80 Dementia in other diseases classified elsewhere, unspecified severity, without behavioral disturbance, psychotic disturbance, mood disturbance, and anxiety; R29.6 Repeated falls; R53.81 Other malaise; Z66 Do not resuscitate; Z79.4 Long term (current) use of insulin; Z79.82 Long term (current) use of aspirin; Z79.890 Hormone replacement therapy; Z79.899 Other long term (current) drug therapy
CPT/HCPCS: 36415; 70470; 70553; 71045; 80048; 80053; 81001; 82962; 85025; 87040; 87426; 92526; 92610; 93005; 95819; 97162; 97166; 99285; A9575; J7030; P9612; Q9967; A4216

== ENCOUNTER → 2021-01-29 | Outpatient (REF) | payer MEDICARE, MEDICAID, SELFPAY ==
[2020-10-16 21:45] VITALS: BMI 37.2
[2021-01-31 18:43] LABS: KEPPRA (LEVETIRACETAM) 17.6 ug/mL (10.0-40.0)
== END | disposition home or self-care (01) ==
LOC: OLS.SW300 04:00
PROVIDERS: PCP Family Medicine; Referring Provider Internal Medicine; Visit Provider Internal Medicine
DX: R56.9 Unspecified convulsions (principal)
CPT/HCPCS: 36415; 80177

== ENCOUNTER → 2021-01-30 | Outpatient (REF) | payer MEDICARE, MEDICAID, SELFPAY ==
[2020-10-16 21:45] VITALS: BMI 37.2
[2021-01-30 08:49] LABS: Mucous, Urine 0 SEEN /hpf (<or=2+); Red Blood Cells-Urine 0 SEEN /hpf (0-5); Squamous Epithelial Cells - UA 0 SEEN /hpf (5-10); White Blood Cells 0 SEEN /hpf (0-5)
[2021-01-30 09:08] LABS: Color, Urine Yellow (Yellow); Glucose, Dipstick Normal (Normal); Ketone-Dipstick 5 mg/dl (Negative); Leukocyte Esterase-Dipstick 25 /ul (Negative); Nitrite-Dipstick Positive (Negative); Occult Blood-Urine 25 /ul (Negative); Protein-Dipstick 30 mg/dl (Negative); Specific Gravity, Urine 1.025 (1.002-1.030); Urine Bilirubin Dipstick Negative (Negative); Urine Clarity Sl. Cloudy (Clear); Urine Urobilinogen Normal (Normal)
[2021-01-30 09:20] LABS: Bacteria 2+ /hpf (None Seen); Calcium Oxalate Crystals Ur 2+ /hpf (<or=2+)
== END | disposition home or self-care (01) ==
LOC: OLS.SW300 04:00
PROVIDERS: PCP Family Medicine; Referring Provider Internal Medicine; Visit Provider Internal Medicine
DX: R41.82 Altered mental status, unspecified (principal)
CPT/HCPCS: 81001; 87086; 87088; 87186

== ENCOUNTER → 2021-02-05 | Outpatient (REF) | payer MEDICARE, MEDICAID, SELFPAY ==
[2020-10-16 21:45] VITALS: BMI 37.2
[2021-02-05 08:31] LABS: Absolute Lymphocyte Count 1.42 X10^3/uL (0.83-4.51); Absolute Neutrophil Count 8.7 X10^3/uL (2.0-7.7); Basophil# 0.05 X10^3/uL; Basophil% 0.4 % (0-1); Eosinophil# 0.16 X10^3/uL; Eosinophils% 1.4 % (0-5); Hematocrit 35.1 % (37-47); Hemoglobin 10.7 g/dL (12.0-15.0); Lymphocyte # 1.42 X10^3/ul (0.83-4.51); Lymphocyte % 12.2 % (19-41); Mean Corp Hgb Conc 30.5 g/dL (32-36); Mean Corpuscular Hgb 26.3 pg (27.0-32.0); Mean Corpuscular Volume 86.2 fL (81-99); Mean Platelet Vol. 9.9 fl (6.2-12.0); Monocyte% 11.1 % (0-10); NRBC Flagged by Analyzer 0 % (0-5); Neutrophil # 8.68 X10^3/uL (2.7-7.7); Neutrophil % 74.5 % (47-70); Platelet Count 385 K/mm3 (150-450); RBC Distribution Width CV 14.6 % (11.6-14.6); RBC Distribution Width SD 46.6 fl (35.1-43.9); Red Blood Count 4.07 M/mm3 (4.2-5.4); White Blood Count 11.7 K/mm3 (4.4-11.0)
[2021-02-05 08:45] LABS: Anion Gap 3 (5-15); BUN 21 mg/dL (7-18); BUN/Creat Ratio 50.1 RATIO (10-20); Calcium,Total 9.9 mg/dL (8.5-10.1); Chloride 101 mmol/L (98-107); Creatinine, Serum 0.42 mg/dL (0.55-1.02); EST Glomerular Filtration Rate 156 mL/min (>60); Est Glom Filt Rate - Afr Amer 189 mL/min (>60); Glucose 75 mg/dL (74-106); Potassium 3.5 mmol/L (3.5-5.1); Sodium Level 138 mmol/L (136-145)
== END | disposition home or self-care (01) ==
LOC: OLS.SW300 05:00
PROVIDERS: PCP Family Medicine; Visit Provider Internal Medicine
DX: E11.9 Type 2 diabetes mellitus without complications (principal); I10 Essential (primary) hypertension; R53.83 Other fatigue; F03.90 Unspecified dementia, unspecified severity, without behavioral disturbance, psychotic disturbance, mood disturbance, and anxiety; E03.9 Hypothyroidism, unspecified
CPT/HCPCS: 36415; 80048; 85025